=== PATIENT | female | born 1945 | race Caucasian/White ===

== ENCOUNTER 2016-04-29 11:37 | Inpatient (IN) | payer OTHER ==
[~2016-04-29] VITALS: Ht 152.4 cm; Wt 59.0 kg
[~2016-04-29 11:37] MED LIST: ACET-1256 PO; ALPR0.25 PO; ASPEC81 PO; BUPR150T7 PO; BUSP15TA70 PO; DIVA500T59 PO; FRS/40 PO; LEVO175T PO; OMEP40CA PO; PRAM0.129 PO; PROB1TAB16 PO; QUET-205 PO; RIZA10TA18 PO; SODI650T9 PO; STLS PO; TRAM-10 PO
[2016-04-29 12:40] VITALS: BP 117/65; PULSE 86; TEMP 36.5; Ht 152.4 cm; Wt 59.0 kg
[2016-04-29 13:33] LABS: HEMATOCRIT 32.8 % (37-47); MEAN CELL VOLUME 97.9 fL (80-100); MEAN CORPUSCULAR HEMOGLOBIN 32.5 pg (25-34); MEAN CORPUSCULAR HGB CONC 33.2 g/dl (32-36); MEAN PLATELET VOLUME 9.3 fL (7.4-10.4); PLATELET COUNT 308 K/uL (130-400); RED BLOOD COUNT 3.35 M/uL (4.2-5.4); WHITE BLOOD COUNT 6.17 K/uL (4.8-10.8)
[2016-04-29] MEDS ORDERED: ACETAMINOPHEN 500 MG TAB PO PRN (14:00)
[2016-04-29] MEDS ORDERED: ONDANSETRON INJ 2 MG/ML 2 ML VIAL IV PRN (14:00)
[2016-04-29] MEDS: SODIUM CHLORIDE 0.9% 1000ML 1,000 ML IV SCH ×2 (14:20→23:47)
[2016-04-29] MEDS: ALPRAZOLAM 0.25 MG TAB PO SCH ×3 (14:20→21:23)
[2016-04-29 14:36] LABS: BUN/CREATININE RATIO 15.9 (10-20); CREATININE 1.4 mg/dl (0.60-1.20); POTASSIUM 4.3 mmol/L (3.5-5.1)
--- NOTE | 2016-04-29 14:42 | Anesthesiology Progress Note ---
Anesthesia Progress Note Date of Service Apr 29, 2016. Progress Notes Saw patient at bedside. Discussed patient history, performed assessment. Pt with a hx of COPD, hx of mild-moderate , LIZETTE 1.1, echo from 07/17/15 EF 70%. Exercise tolerance good per patient., Pt. states she walks up 15 steps upstairs with no symptoms. Discussed spinal/general options with patient. Consent obtained. Advised to be NPO after midnight.
--- NOTE | 2016-04-29 15:08 | DIAGNOSTIC IMAGING REPORT ---
CHEST 2 VIEWS ROUTINE CLINICAL HISTORY: Preoperative chest COMPARISON STUDY: 07/19/2015 FINDINGS: The heart is normal in size. The patient is mildly hyperinflated. There is mild interstitial thickening unchanged from the prior study. A vague opacity within the right midlung zone laterally is felt to relate to underlying rib deformity. There is no lobar consolidation. There is no failure. There are no pleural effusions.[ IMPRESSION: No active disease in the chest. Electronically signed by: Nitin Samayoa M.D. 04/29/2016 3:06 PM
[2016-04-29 15:40] VITALS: BP 93/56; PULSE 80; TEMP 36.4; O2SAT 99
--- NOTE | 2016-04-29 16:17 | HISTORY & PHYSICAL EXAMINATION ---
DATE OF ADMISSION: 04/29/2016 CHIEF COMPLAINT: Left hip pain. HISTORY OF PRESENT ILLNESS: The patient is a 70-year-old female who is known to us with multiple orthopedic problems who suffered a fall at home around [place]. She has been hobbling, limping on for the past week and a half. Her daughter brings her to the office today for x-ray and evaluation. X-rays revealed a mildly displaced left hip subcapital femoral neck fracture. She is now to be admitted to the hospital for surgical intervention tomorrow. PAST MEDICAL HISTORY: Congestive heart failure, depression, hypothyroidism, acid reflux. PAST SURGICAL HISTORY: Hysterectomy, cholecystectomy, right and left knees laparoscopies. MEDICATIONS: Synthroid 125 mcg daily, Mirapex 0.25 mg 3 times daily, Depakote 500 mg 2 times daily, Wellbutrin-SR 150 mg 2 times daily, Seroquel 100 mg 2 times daily, aspirin 81 mg daily, Prilosec 40 mg daily, Maxalt 10 mg p.r.n., probiotic daily, buspirone 15 mg 2 times daily, vitamin D3 2000 units daily, Xanax 0.25 mg 3 times daily, calcitriol 0.25 mcg daily, colchicine 0.6 mg daily. ALLERGIES: ZOSYN WHICH CAUSES A RASH, MORPHINE WHICH CAUSES HER BLOOD PRESSURE TO GO DOWN AND PROTONIX. SOCIAL HISTORY: She lives with her daughter. REVIEW OF SYSTEMS: Noncontributory. PHYSICAL EXAMINATION: GENERAL: Well-nourished, well-developed elderly female in moderate amount of pain due to her left hip injury. HEENT: Normocephalic, atraumatic, extraocular movements intact, oropharynx pink and moist. NECK: Supple without adenopathy. LUNGS: Clear to auscultation bilaterally. HEART: Regular rate and rhythm. ABDOMEN: Soft, nontender, nondistended. EXTREMITIES: The upper extremity within normal limits. The left hip is irritable to motion. X-RAYS: X-rays were reviewed. She has a mildly displaced subcapital femoral neck fracture of the left hip. ASSESSMENT: Left hip fracture. PLAN: Risks versus benefits were discussed. Consent was obtained. The patient will be admitted to the hospital. Her primary care physician is Dr. Jennings. We will proceed with left total hip arthroplasty upon preoperative workup and medical clearance. SHANNON
[2016-04-29] MEDS: OXYCODONE HCL IR 5 MG TAB (IMMEDIATE RELEASE) PO PRN ×2 (16:50→21:25)
[2016-04-29] MEDS: QUETIAPINE FUMARATE 100 MG TAB PO SCH (21:22)
[2016-04-29] MEDS: BusPIRone 15 MG TAB PO SCH (21:23)
[2016-04-29] MEDS: BuPROPion SR 150 MG TABCR PO SCH (21:24)
[2016-04-29] MEDS: PRAMIPEXOLE DIHYDROCHLORIDE 0.25MG TAB PO SCH (21:24)
[2016-04-29] MEDS: DIVALPROEX SODIUM 500 MG DELAY RELEASE TAB PO SCH (21:24)
[2016-04-29 22:57] VITALS: BP 96/63; PULSE 80; TEMP 36.6; O2SAT 80; O2SAT 96
[2016-04-30] MEDS: LEVOTHYROXINE 125 MCG TAB PO SCH (05:40)
[2016-04-30] MEDS ORDERED: CEFAZOLIN 1000MG/55 ML D5W 55 ML IV SCH (06:00)
[2016-04-30] MEDS ORDERED: BUPIVACAINE 0.5 % 5 MG/1 ML PF 10ML VIAL ONE (06:34)
[2016-04-30 08:01] VITALS: BP 110/71; PULSE 77; TEMP 36.4; O2SAT 98
--- NOTE | 2016-04-30 08:27 | Clinical Documentation Query ---
COLLEEN Guillen : CLINICAL DOCUMENTATION QUERIES QUERY 1 OF 2 Patient is a 70 year old woman admitted s/p fall with left mildly displaced subcapital femoral neck fracture. She has been seen in consultation by orthopedic surgery and operative repair is pending. If you feel the degree of injury is out of proportion to the mechanism of injury, please clarify as suggested below as this directly impacts DRG assignment. Thank you. In your clinical opinion is this patient being managed for: ( ) Pathological mildly displaced subcapital left femoral neck fracture ( ) Other explanation of clinical findings (Please Explain) ( ) Unable to determine (Please Define) ( ) Need to Discuss ( ) Not Agree The medical record reflects the following clinical findings, treatment, and risk factors. Clinical Indicators: Fracture sustained with ground level fall. Treatment: Orthopedic consultation, Vitamin D3, Calcitriol Risk Factors: Age, gender, post-menopausal, small stature Pathological Fracture * Some fractures may occur d/t minor trauma or without any trauma at all_ * This type of fracture is generally predisposed by underlying conditions like metastatic disease, osteoporosis, osteopenia, etc. * Only the physician can determine whether the fracture is out of proportion to the degree of trauma. * You know these fractures by several names: pathological, osteoporotic, insufficiency, frailty. QUERY 2 OF 2 Admission BUN, creatinine, and estimated GFR were22 mg/dl, 1.40 mg/dl, and 38 ml/min. Please clarify as clinically appropriate. In your clinical opinion is this patient being managed for: ( ) Chronic kidney disease, stage 3 ( ) Other explanation of clinical findings (Please Explain) ( ) Unable to determine (Please Define) ( ) Need to Discuss ( ) Not Agree The medical record reflects the following clinical findings, treatment, and risk factors. Clinical Indicators: As above Treatment: IVF, serial chemistries Risk Factors: Age, CHF history, medications Chronic Kidney Disease (CKD), stages 1-5. Documenting the stage of CKD will improve data integrity and will help clarify vague terms such as "renal insufficiency" or "chronic renal failure." The stages of CKD according to the [employer] are as follows: Stage I: GFR >90 Stage II: GFR 60-89 Stage III: GFR 30-59 Stage IV: GFR 15-29 Stage V: GFR <15 Please clarify and document your clinical opinion in the progress notes and discharge summary. Terms such as "probable", "suspected", "likely", "questionable", "possible", or "still to be ruled out" are acceptable. IF IN AGREEMENT, YOU MUST DOCUMENT ABOVE DIAGNOSTIC STATEMENT IN DAILY PROGRESS NOTES AND DISCHARGE SUMMARY. This document is not part of the patient's record. Thank You, Sp Chirinos, LUIS ENRIQUE [phone]
[2016-04-30] MEDS: QUETIAPINE FUMARATE 100 MG TAB PO SCH ×2 (09:00→20:47)
[2016-04-30] MEDS: PANTOprazole SOD 40 MG TAB PO SCH (09:00)
[2016-04-30] MEDS: PRAMIPEXOLE DIHYDROCHLORIDE 0.25MG TAB PO SCH ×3 (09:00→20:46)
[2016-04-30] MEDS: ALPRAZOLAM 0.25 MG TAB PO SCH ×3 (09:00→20:46)
[2016-04-30] MEDS: BusPIRone 15 MG TAB PO SCH ×2 (09:00→20:46)
[2016-04-30] MEDS: DIVALPROEX SODIUM 500 MG DELAY RELEASE TAB PO SCH ×2 (09:00→20:46)
[2016-04-30] MEDS: BuPROPion SR 150 MG TABCR PO SCH ×2 (09:00→20:47)
--- NOTE | 2016-04-30 12:46 | History & Physical Bridge Note ---
H&P Re-Evaluation Bridge Note: I have examined the patient, reviewed the History & Physical and in the interval since the performance of the History & Physical I have noted the following changes of clinical significance: No changes noted
[2016-04-30] MEDS: SODIUM CHLORIDE 0.9% 1000ML 1,000 ML IV SCH ×2 (13:11→20:49)
[2016-04-30] MEDS ORDERED: LACTATED RINGER'S 1000ML 1,000 ML IV PRN (13:47)
[2016-04-30] MEDS ORDERED: FENTANYL CITRATE INJ 50 MCG/1 ML 2 ML VIAL IV PRN ×2 (14:00→16:00)
[2016-04-30] MEDS ORDERED: ONDANSETRON INJ 2 MG/ML 2 ML VIAL IV PRN ×2 (14:00→16:00)
[2016-04-30] MEDS ORDERED: FENTANYL CITRATE INJ 50 MCG/1 ML 2 ML VIAL ONE (14:09)
[2016-04-30] MEDS ORDERED: PROPOFOL IV EMULSION 10 MG/ML 20 ML VIAL IV ONE (14:09)
[2016-04-30] MEDS ORDERED: LIDOCAINE HCL 2% 2 ML VIAL (20MG/ML) ONE (14:09)
[2016-04-30] MEDS ORDERED: MIDAZOLAM HCL 1 MG/ML 2ML VIAL ONE (14:09)
[2016-04-30] MEDS ORDERED: ROCURONIUM BROMIDE 10 MG/ML 5 ML VIAL ONE (14:47)
[2016-04-30] MEDS ORDERED: DEXAMETHASONE SOD INJ 4 MG/ML VIAL ONE (14:47)
[2016-04-30] MEDS ORDERED: ONDANSETRON INJ 2 MG/ML 2 ML VIAL ONE (14:47)
[2016-04-30] MEDS ORDERED: EpHEDrine SULFATE INJ 50 MG/ML AMP IV PRN (16:00)
[2016-04-30] MEDS ORDERED: DEXAMETHASONE SOD INJ 4 MG/ML VIAL IV PRN (16:00)
[2016-04-30] MEDS ORDERED: MEPERIDINE HCL 25 MG/ML CARP IV PRN (16:00)
[2016-04-30] MEDS ORDERED: ATROPINE SULFATE 0.1 MG/ML 5ML SYR IV PRN (16:00)
[2016-04-30] MEDS ORDERED: NEOSTIGMINE METHYLSULFATE 5 MG/5 ML SYR ONE (16:43)
[2016-04-30] MEDS ORDERED: GLYCOPYRROLATE INJ 0.2 MG/ML VIAL ONE (16:43)
[2016-04-30] MEDS ORDERED: ALUMINUM/MAGNESIUM/SIMETH (MAALOX MAX) 30 ML UDC PO PRN (16:45)
[2016-04-30] MEDS ORDERED: DiphenhydrAMINE HCL 50 MG/ML VIAL IV PRN (16:45)
[2016-04-30] MEDS ORDERED: BISACODYL 10 MG SUPP PR PRN (16:45)
[2016-04-30] MEDS ORDERED: ZOLPIDEM TARTRATE 5 MG TAB PO PRN (16:45)
[2016-04-30] MEDS ORDERED: MAGNESIUM HYDROXIDE SUSP 30 ML UDC PO PRN (16:45)
--- NOTE | 2016-04-30 16:52 | [facility] Post Operative Brief Note ---
Immediate Operative Summary Operative Date Apr 30, 2016. Pre-Operative Diagnosis Garden ! left femoral neck fx Post-Operative Diagnosis same Procedure(s) Performed In situ screw fixation Surgeon Jordan Bridge Saw Operator Surgeon(s) Kobe Estimated Blood Loss 20cc Findings fx Specimens none Complication(s) None Disposition Recovery Room / PACU
[2016-04-30] MEDS ORDERED: EpHEDrine SULFATE 50MG/5ML SYR ONE (17:02)
--- NOTE | 2016-04-30 17:35 | Anesthesiology Progress Note ---
Anesthesia Post Op Note Date & Time Apr 30, 2016 at 17:34 Vital Signs Pain Intensity: 1 Vital Signs Past 12 Hours Date Time Temp Pulse Resp B/P Pulse Ox O2 Delivery O2 Flow Rate FiO2 04/30/16 17:33 36.2 04/30/16 17:30 52 20 04/30/16 17:30 53 20 98 04/30/16 17:29 111/60 04/30/16 17:26 126/58 04/30/16 17:25 53 20 04/30/16 17:25 57 20 99 04/30/16 17:24 72/63 04/30/16 17:20 49 12 04/30/16 17:20 49 12 100 04/30/16 17:19 117/65 04/30/16 17:17 132/49 04/30/16 17:15 49 21 04/30/16 17:15 48 21 98 04/30/16 17:10 54 17 04/30/16 17:10 53 17 100 04/30/16 17:09 129/64 04/30/16 17:05 58 19 98 04/30/16 17:05 61 19 04/30/16 17:04 119/62 04/30/16 17:01 135/53 04/30/16 17:00 65 26 81 04/30/16 17:00 68 26 04/30/16 16:55 36.7 63 16 131/53 100 Nasal Cannula 3 04/30/16 08:17 Room Air 04/30/16 08:01 36.4 77 16 110/71 98 Room Air Notes Mental Status: alert / awake / arousable Nausea / Vomiting: adequately controlled Pain: adequately controlled Airway Patency, RR, SpO2: stable & adequate BP & HR: stable & adequate Hydration State: stable & adequate Anesthetic Complications: no major complications apparent
--- NOTE | 2016-04-30 17:44 | DIAGNOSTIC IMAGING REPORT ---
INTRAOPERATIVE LEFT HIP 2 VIEWS CLINICAL HISTORY: LEFT HIP PINNING/CANNULATED SCREWS COMPARISON STUDY: None FLUOROSCOPY TIME: 20 seconds. FINDINGS: 2 fluoroscopic spot images were acquired. There is internal fixation of a femoral neck fracture with 3 cannulated screws. IMPRESSION: Internal fixation of the left femoral neck fracture with 3 cannulated screws Electronically signed by: Nitin Samayoa M.D. 04/30/2016 5:42 PM Dictated Date/Time: 04/30/2016 5:41 PM
[2016-04-30 17:45] VITALS: BP 111/65; PULSE 77; TEMP 36.6; O2SAT 97
[2016-04-30 18:15] VITALS: BP 100/55; PULSE 52; TEMP 36.2; O2SAT 100
[2016-04-30 18:55] VITALS: BP 104/60; PULSE 59; TEMP 36.4; O2SAT 100
[2016-04-30] MEDS: OXYCODONE HCL IR 5 MG TAB (IMMEDIATE RELEASE) PO PRN (19:12)
[2016-04-30 20:43] VITALS: BP 111/65; PULSE 62; TEMP 36.5; O2SAT 97
[2016-04-30] MEDS: DOCUSATE SODIUM 100 MG CAP PO SCH (21:00)
[2016-04-30] MEDS: CEFAZOLIN IV 1,000 MG in DEXTROSE 5% 50ML 50 ML IV SCH (22:13)
[2016-04-30 22:53] VITALS: BP 88/50; PULSE 55; TEMP 36.4; O2SAT 97
[2016-05-01 03:23] VITALS: BP 99/61; PULSE 64; TEMP 36.3; O2SAT 98
[2016-05-01] MEDS: SODIUM CHLORIDE 0.9% 1000ML 1,000 ML IV SCH (03:48)
[2016-05-01] MEDS: LEVOTHYROXINE 125 MCG TAB PO SCH (05:48)
[2016-05-01] MEDS: CEFAZOLIN IV 1,000 MG in DEXTROSE 5% 50ML 50 ML IV SCH (05:49)
--- NOTE | 2016-05-01 06:58 | OPERATIVE REPORT ---
DATE OF OPERATION: 04/30/2016 PREOPERATIVE DIAGNOSIS: Impacted femoral neck fracture, left hip. POSTOPERATIVE DIAGNOSIS: Impacted femoral neck fracture, left hip. PROCEDURE: In situ cannulated screw fixation, left hip. SURGEON: Gal Ortega MD COMPUTER TECHNICAL SUPPORT SPECIALIST: TOO Ann ANESTHESIA: General. COMPLICATIONS: None. DESCRIPTION OF PROCEDURE: Following induction of adequate general anesthesia, the patient's left hip was prepped and draped in the usual sterile manner. A drill-tipped guidewire was used to plan the incision. A 1 inch incision was made over the lateral aspect of the thigh and a cannulated screw was placed traversing the fracture. Using 2 additional drill tipped guidewires, the triangulation of wires traversed the fracture site were all completely intraosseous. The guidewire was then measured and 3 cannulated screws were passed. The wound was irrigated and closed using 2-0 Dexon bella. Sterile dressing of Adaptic, 4x4s, ABDs and foam tape was applied. The patient tolerated the procedure well. I attest to the content of the Intraoperative Record and any orders documented therein. Any exceptio ns are noted below.
[2016-05-01 07:21] VITALS: BP 98/62; PULSE 62; TEMP 36.6; O2SAT 100
[2016-05-01 07:31] LABS: HEMATOCRIT 33.1 % (37-47); MEAN CELL VOLUME 98.5 fL (80-100); MEAN CORPUSCULAR HEMOGLOBIN 31.8 pg (25-34); MEAN CORPUSCULAR HGB CONC 32.3 g/dl (32-36); MEAN PLATELET VOLUME 9.5 fL (7.4-10.4); PLATELET COUNT 307 K/uL (130-400); RED BLOOD COUNT 3.36 M/uL (4.2-5.4); WHITE BLOOD COUNT 6.26 K/uL (4.8-10.8)
[2016-05-01] MEDS: OXYCODONE HCL IR 5 MG TAB (IMMEDIATE RELEASE) PO PRN ×3 (07:35→23:14)
[2016-05-01 07:57] LABS: BUN/CREATININE RATIO 13.5 (10-20); CALCIUM 8.2 mg/dl (8.5-10.1); CREATININE 1.5 mg/dl (0.60-1.20); POTASSIUM 4.5 mmol/L (3.5-5.1)
--- NOTE | 2016-05-01 08:10 | Orthopedic Progress Note ---
Orthopedic Progress Note Date of Service May 01, 2016. Subjective Post OP Day: 1 Reports: feeling well Objective calves soft nontender, N/V intact, dressing C/D/I, toes mobile Date Time Temp Pulse Resp B/P Pulse Ox O2 Delivery O2 Flow Rate FiO2 05/01/16 07:21 36.6 62 16 98/62 100 Room Air 05/01/16 03:23 36.3 64 16 99/61 98 Nasal Cannula 2.0 04/30/16 23:53 Nasal Cannula 2.0 04/30/16 22:53 36.4 55 16 88/50 97 Nasal Cannula 2.0 04/30/16 20:43 36.5 62 16 111/65 97 Nasal Cannula 2.0 04/30/16 18:55 36.4 59 16 104/60 100 Nasal Cannula 3.0 04/30/16 18:15 36.2 52 16 100/55 100 Nasal Cannula 3.0 04/30/16 17:45 36.6 77 18 111/65 97 Nasal Cannula 3.0 04/30/16 17:45 97 Nasal Cannula 3.0 04/30/16 17:45 97 Nasal Cannula 3.0 04/30/16 17:33 36.2 04/30/16 17:30 52 20 04/30/16 17:30 53 20 98 04/30/16 17:29 111/60 04/30/16 17:26 126/58 04/30/16 17:25 53 20 04/30/16 17:25 57 20 99 04/30/16 17:24 72/63 04/30/16 17:20 49 12 04/30/16 17:20 49 12 100 04/30/16 17:19 117/65 04/30/16 17:17 132/49 04/30/16 17:15 49 21 04/30/16 17:15 48 21 98 04/30/16 17:10 54 17 04/30/16 17:10 53 17 100 04/30/16 17:09 129/64 04/30/16 17:05 58 19 98 04/30/16 17:05 61 19 04/30/16 17:04 119/62 04/30/16 17:01 135/53 04/30/16 17:00 65 26 81 04/30/16 17:00 68 26 04/30/16 16:55 36.7 63 16 131/53 100 Nasal Cannula 3 04/30/16 08:17 Room Air Laboratory Results 24 Hours: Test 05/01/16 07:01 Hematocrit 33.1 % Hemoglobin 10.7 g/dL Assessment & Plan Assessment: 70 yo female stable POD #1 s/p left hip pinning Plan: 1. Med management 2. DVT prophylaxis - ASA, TEDs, SCDs 3. PT/OT- TTWB left LE 4. D/C planning- pt interested in [facility] due to stairs at home and being alone during the day
--- NOTE | 2016-05-01 08:32 | Anesthesiology Progress Note ---
Anesthesia Post Op Note Date & Time May 01, 2016 at 08:31 Vital Signs Pain Intensity: 9.0 Vital Signs Past 12 Hours Date Time Temp Pulse Resp B/P Pulse Ox O2 Delivery O2 Flow Rate FiO2 05/01/16 07:21 36.6 62 16 98/62 100 Room Air 05/01/16 03:23 36.3 64 16 99/61 98 Nasal Cannula 2.0 04/30/16 23:53 Nasal Cannula 2.0 04/30/16 22:53 36.4 55 16 88/50 97 Nasal Cannula 2.0 04/30/16 20:43 36.5 62 16 111/65 97 Nasal Cannula 2.0 Notes Mental Status: alert / awake / arousable, participated in evaluation Pt Amnestic to Procedure: Yes Nausea / Vomiting: adequately controlled Pain: adequately controlled Airway Patency, RR, SpO2: stable & adequate BP & HR: stable & adequate Hydration State: stable & adequate Anesthetic Complications: no major complications apparent
[2016-05-01] MEDS: BuPROPion SR 150 MG TABCR PO SCH ×2 (08:45→20:46)
[2016-05-01] MEDS: DOCUSATE SODIUM 100 MG CAP PO SCH ×2 (08:45→20:45)
[2016-05-01] MEDS: DIVALPROEX SODIUM 500 MG DELAY RELEASE TAB PO SCH ×2 (08:46→20:47)
[2016-05-01] MEDS: PANTOprazole SOD 40 MG TAB PO SCH (08:46)
[2016-05-01] MEDS: PRAMIPEXOLE DIHYDROCHLORIDE 0.25MG TAB PO SCH ×3 (08:47→20:46)
[2016-05-01] MEDS: MULTIVITAMIN TAB PO SCH (08:47)
[2016-05-01] MEDS: QUETIAPINE FUMARATE 100 MG TAB PO SCH ×2 (08:47→20:47)
[2016-05-01] MEDS: BusPIRone 15 MG TAB PO SCH ×2 (08:48→20:46)
[2016-05-01] MEDS: ALPRAZOLAM 0.25 MG TAB PO SCH ×3 (08:51→20:45)
[2016-05-01] MEDS: ASPIRIN 81 MG ECTAB PO SCH ×2 (08:51→20:46)
[2016-05-01 10:33] VITALS: BP 108/63; PULSE 100; O2SAT 95
[2016-05-01 12:33] VITALS: BP 82/53; PULSE 94; TEMP 36.6; O2SAT 95
[2016-05-01 15:33] VITALS: BP 91/61; PULSE 94; TEMP 36.9; O2SAT 95
[2016-05-01 19:54] VITALS: BP 104/55; PULSE 94; TEMP 37.6; O2SAT 95
[2016-05-02 00:03] VITALS: BP 91/56; PULSE 104; TEMP 36.8; O2SAT 95
[2016-05-02] MEDS: LEVOTHYROXINE 125 MCG TAB PO SCH (06:07)
[2016-05-02 07:00] VITALS: BP 94/61; PULSE 90; TEMP 36.9; O2SAT 95
[2016-05-02 07:03] LABS: HEMATOCRIT 31.8 % (37-47); MEAN CELL VOLUME 97.5 fL (80-100); MEAN CORPUSCULAR HGB CONC 31.8 g/dl (32-36); MEAN PLATELET VOLUME 9.7 fL (7.4-10.4); PLATELET COUNT 307 K/uL (130-400); RED BLOOD COUNT 3.26 M/uL (4.2-5.4); WHITE BLOOD COUNT 5.85 K/uL (4.8-10.8)
[2016-05-02 07:31] LABS: BUN/CREATININE RATIO 14.6 (10-20); CALCIUM 7.7 mg/dl (8.5-10.1); CREATININE 1.4 mg/dl (0.60-1.20); POTASSIUM 4.2 mmol/L (3.5-5.1)
[2016-05-02] MEDS: ALPRAZOLAM 0.25 MG TAB PO SCH ×3 (09:08→21:02)
[2016-05-02] MEDS: OXYCODONE HCL IR 5 MG TAB (IMMEDIATE RELEASE) PO PRN (09:09)
[2016-05-02] MEDS: PANTOprazole SOD 40 MG TAB PO SCH (09:10)
[2016-05-02] MEDS: DOCUSATE SODIUM 100 MG CAP PO SCH ×2 (09:10→21:03)
[2016-05-02] MEDS: QUETIAPINE FUMARATE 100 MG TAB PO SCH ×2 (09:11→21:04)
[2016-05-02] MEDS: MULTIVITAMIN TAB PO SCH (09:11)
[2016-05-02] MEDS: BusPIRone 15 MG TAB PO SCH ×2 (09:12→21:03)
[2016-05-02] MEDS: BuPROPion SR 150 MG TABCR PO SCH ×2 (09:12→21:02)
[2016-05-02] MEDS: ASPIRIN 81 MG ECTAB PO SCH ×2 (09:12→21:02)
[2016-05-02] MEDS: DIVALPROEX SODIUM 500 MG DELAY RELEASE TAB PO SCH ×2 (09:12→21:03)
[2016-05-02] MEDS: PRAMIPEXOLE DIHYDROCHLORIDE 0.25MG TAB PO SCH ×3 (09:13→21:03)
--- NOTE | 2016-05-02 09:14 | Orthopedic Progress Note ---
Orthopedic Progress Note Date of Service May 02, 2016. Subjective Post OP Day: 2 Reports: feeling well, pain controlled w PO medications, Denies: SOB, calf pain , chest pain, complaints, light headedness, nausea / vomiting Objective calves soft nontender, N/V intact, incision C/D/I, A&O x3, toes mobile Date Time Temp Pulse Resp B/P Pulse Ox O2 Delivery O2 Flow Rate FiO2 05/02/16 07:00 36.9 90 16 94/61 95 Room Air 05/02/16 00:03 36.8 104 20 91/56 95 Room Air 05/01/16 20:30 Room Air 05/01/16 19:54 37.6 94 18 104/55 95 Room Air 05/01/16 15:33 36.9 94 18 91/61 95 Room Air 05/01/16 12:33 36.6 94 16 82/53 95 Room Air 05/01/16 10:33 100 95 Laboratory Results 24 Hours: Test 05/02/16 06:00 Hematocrit 31.8 % Hemoglobin 10.1 g/dL Assessment & Plan Assessment: 70 yo female stable POD #1 s/p left hip pinning Plan: 1. Med management 2. DVT prophylaxis - ASA, TEDs, SCDs 3. PT/OT- TTWB left LE 4. D/C planning- pt interested in [facility] due to stairs at home and being alone during the day, awaiting autho. will likely not be until wednesday or wednesday Discharge Planning Discharge Planning: care home facility
[2016-05-02 15:16] VITALS: BP 99/50; PULSE 103; TEMP 36.7; O2SAT 97
[2016-05-02 23:23] VITALS: BP 92/58; PULSE 103; TEMP 37.2; O2SAT 97
[2016-05-03 03:13] VITALS: O2SAT 97
[2016-05-03 06:26] VITALS: BP 86/54; PULSE 98; TEMP 36.6; O2SAT 91
[2016-05-03] MEDS: LEVOTHYROXINE 125 MCG TAB PO SCH (06:27)
--- NOTE | 2016-05-03 06:59 | Orthopedic Progress Note ---
Orthopedic Progress Note Date of Service May 03, 2016. Subjective Post OP Day: 3 Reports: feeling well, pain controlled w PO medications, Denies: SOB, calf pain , chest pain, complaints, light headedness, nausea / vomiting Objective calves soft nontender, N/V intact, capillary refill less than 2 sec., incision C /D/I, A&O x3, toes mobile Date Time Temp Pulse Resp B/P Pulse Ox O2 Delivery O2 Flow Rate FiO2 05/03/16 06:26 36.6 98 16 86/54 91 Room Air 05/03/16 03:13 97 Room Air 05/02/16 23:23 37.2 103 18 92/58 97 Room Air 05/02/16 15:16 36.7 103 17 99/50 97 Room Air 05/02/16 08:15 Room Air 05/02/16 07:00 36.9 90 16 94/61 95 Room Air Laboratory Results 24 Hours: Test 05/03/16 05:55 Assessment & Plan Assessment: 70 yo female stable POD #3 s/p left hip pinning Plan: 1. Med management 2. DVT prophylaxis - ASA, TEDs, SCDs 3. PT/OT- TTWB left LE 4. D/C planning- pt interested in [facility] due to stairs at home and being alone during the day, awaiting auth. CM states bed available Wed or Wednesday incision cd&I, no drainage. NVDI. Discharge Planning Discharge Planning: care home facility
[2016-05-03 07:00] LABS: HEMATOCRIT 29.6 % (37-47); MEAN CORPUSCULAR HEMOGLOBIN 31.8 pg (25-34); MEAN CORPUSCULAR HGB CONC 32.8 g/dl (32-36); MEAN PLATELET VOLUME 9.9 fL (7.4-10.4); PLATELET COUNT 284 K/uL (130-400); RED BLOOD COUNT 3.05 M/uL (4.2-5.4); WHITE BLOOD COUNT 6.18 K/uL (4.8-10.8)
[2016-05-03 07:52] VITALS: BP 84/58; PULSE 98; TEMP 37.1; O2SAT 91
[2016-05-03] MEDS: ALPRAZOLAM 0.25 MG TAB PO SCH ×3 (08:30→20:47)
[2016-05-03] MEDS: BusPIRone 15 MG TAB PO SCH ×2 (08:31→20:44)
[2016-05-03] MEDS: DIVALPROEX SODIUM 500 MG DELAY RELEASE TAB PO SCH ×2 (08:31→20:43)
[2016-05-03] MEDS: ASPIRIN 81 MG ECTAB PO SCH ×2 (08:32→20:41)
[2016-05-03] MEDS: PANTOprazole SOD 40 MG TAB PO SCH (08:32)
[2016-05-03] MEDS: MULTIVITAMIN TAB PO SCH (08:32)
[2016-05-03] MEDS: PRAMIPEXOLE DIHYDROCHLORIDE 0.25MG TAB PO SCH ×3 (08:32→20:43)
[2016-05-03] MEDS: BuPROPion SR 150 MG TABCR PO SCH ×2 (08:32→20:45)
[2016-05-03] MEDS: QUETIAPINE FUMARATE 100 MG TAB PO SCH ×2 (08:32→20:44)
[2016-05-03] MEDS: DOCUSATE SODIUM 100 MG CAP PO SCH ×2 (08:32→20:42)
[2016-05-03 09:06] VITALS: BP 83/53; PULSE 91; O2SAT 96
[2016-05-03 15:25] VITALS: BP 94/51; PULSE 92; TEMP 37; O2SAT 94
[2016-05-03 22:50] VITALS: BP 86/47; PULSE 98; TEMP 37.4; O2SAT 92
[2016-05-04] MEDS: LEVOTHYROXINE 125 MCG TAB PO SCH (05:43)
[2016-05-04 06:36] LABS: HEMATOCRIT 30.7 % (37-47); MEAN CELL VOLUME 98.1 fL (80-100); MEAN CORPUSCULAR HEMOGLOBIN 31.3 pg (25-34); MEAN CORPUSCULAR HGB CONC 31.9 g/dl (32-36); MEAN PLATELET VOLUME 9.8 fL (7.4-10.4); PLATELET COUNT 270 K/uL (130-400); RED BLOOD COUNT 3.13 M/uL (4.2-5.4); WHITE BLOOD COUNT 4.46 K/uL (4.8-10.8)
[2016-05-04 07:15] VITALS: BP 93/59; PULSE 61; TEMP 36.8; O2SAT 93
[2016-05-04] MEDS: ALPRAZOLAM 0.25 MG TAB PO SCH ×2 (07:31→13:50)
[2016-05-04] MEDS: ASPIRIN 81 MG ECTAB PO SCH (07:32)
[2016-05-04] MEDS: PANTOprazole SOD 40 MG TAB PO SCH (07:32)
[2016-05-04] MEDS: MULTIVITAMIN TAB PO SCH (07:32)
[2016-05-04] MEDS: DOCUSATE SODIUM 100 MG CAP PO SCH (07:32)
[2016-05-04] MEDS: DIVALPROEX SODIUM 500 MG DELAY RELEASE TAB PO SCH (07:32)
[2016-05-04] MEDS: BuPROPion SR 150 MG TABCR PO SCH (07:33)
[2016-05-04] MEDS: QUETIAPINE FUMARATE 100 MG TAB PO SCH (07:33)
[2016-05-04] MEDS: BusPIRone 15 MG TAB PO SCH (07:34)
[2016-05-04] MEDS: PRAMIPEXOLE DIHYDROCHLORIDE 0.25MG TAB PO SCH ×2 (07:34→13:50)
--- NOTE | 2016-05-04 08:10 | Orthopedic Progress Note ---
Orthopedic Progress Note Date of Service May 04, 2016. Subjective Post OP Day: 4 Reports: feeling well, Denies: complaints Objective calves soft nontender, N/V intact, incision C/D/I, A&O x3, toes mobile Date Time Temp Pulse Resp B/P Pulse Ox O2 Delivery O2 Flow Rate FiO2 05/04/16 07:15 36.8 61 18 93/59 93 Room Air 05/03/16 23:40 Room Air 05/03/16 22:50 37.4 98 16 86/47 92 Room Air 05/03/16 16:30 Room Air 05/03/16 15:25 37.0 92 18 94/51 94 Room Air 05/03/16 09:06 91 96 05/03/16 08:10 Room Air Laboratory Results 24 Hours: Test 05/04/16 05:52 Hematocrit 30.7 % Hemoglobin 9.8 g/dL Assessment & Plan Assessment: 70 yo female stable POD #4 s/p left hip pinning Plan: DVT prophylaxis - ASA, TEDs, SCDs PT/OT- TTWB left LE D/C planning- pt interested in [facility] due to stairs at home and being alone during the day, awaiting auth. CM states bed available today or Wednesday Discharge Planning Discharge Planning: [facility] facility
[2016-05-04] MEDS ORDERED: CLC100 PO (08:14)
[2016-05-04] MEDS ORDERED: RXC5 PO (08:14)
[2016-05-04] MEDS ORDERED: ASPEC81 PO (08:14)
--- NOTE | 2016-05-04 08:19 | Discharge Instructions ---
Discharge Instructions Admission Reason for Admission: Left Hip Fracture Discharge Discharge Diagnosis / Problem: Left Hip Fracture Discharge Goals Goal(s): Decrease discomfort, Improve function Activity Recommendations Activity Level: Assistance Required Therapies: Physical Therapy (gait training), Occupational Therapy (ADL's and transfers) Weightbearing Status: Left toe touch . Additional Information Patient informed of condition: Yes Advance Directives: No DNR: No Level of Care: Skilled Communicable Disease: No Prognosis: Stable Gomez Catheter: No Instructions / Follow-Up Instructions / Follow-Up [facility] DISCHARGE INSTRUCTIONS: HIP FRACTURE SELF CARE INSTRUCTIONS: A. You are to ambulate with a walker or crutches for approximately 6 weeks. B. You are TOE TOUCH WEIGHT BEARING on your operative lower extremity for at least 6 weeks. C. Wear low heeled shoes with non-slip soles D. Be sure that your floors are free of things that could trip you throw rugs, electrical cords, and small objects. Avoid wet and waxed floors, especially with crutches/walker/cane. E. Try to walk several times a day with rest periods between. F. You may shower 48 hours after surgery and get the incision area wet, but DO NOT soak or submerge incision area in water. (No baths, swimming pools, hot tubs ) G. Change dressing daily. If the wound remains dry, you may leave it to the open air. If the wound continues to drain. Please call the office. H. Do NOT apply soap or any ointment/lotions directly over incision. I. You may use ice as needed to operative site. SPECIAL CARE INSTRUCTIONS: VERY IMPORTANT TO READ AND REVIEW A. You may be at risk for phlebitis or blood clots. a. Wear surgical stockings (JUANJOSE hose) for 2 weeks after surgery to improve circulation and reduce swelling. b. Take ASPIRIN 81 mg twice daily for 4 weeks or as directed. This is your blood thinner. c. If you are on Coumadin- you will have daily/weekly blood work to monitor your levels. This will be done by either your family physician/ clinical provider trainer (if you are on Coumadin chronically) versus your orthopedic surgeon. Expect a phone call the day of or the day after your blood work is drawn to adjust your dose accordingly. B. There are a few signs you need to watch for after you are home. Call [facility] at [phone] if you experience any of the following: a. If you have a temperature of 101 degrees or higher. b. Sudden increase in pain in your hip not relieved by rest or pain medication. c. Any fluid or drainage from the incision; redness of the incision. d. Shortness of breath or chest pain. B. Please call [facility] at [phone] if you have any questions or concerns about your operation or recovery. C. Call your physician if: a. Temperature is greater than 101 degrees (F). b. Pain is not relieved by prescribed pain medications. c. Increase drainage or redness from incision. d. Unanswered questions or concerns. D. Pain Medication: a. You will be prescribed pain medication upon discharge that should last till your first post-operative appointment. b. If you experience nausea and/or skin rash, discontinue this medication and contact our office for an alternative medication. c. Caution- narcotic pain medication can cause constipation. FOLLOW UP VISIT: Please call [facility] at [phone] to schedule a follow up appointment 10-14 days from the date of your surgery date. Current Hospital Diet Patient's current hospital diet: Regular Diet Discharge Diet Recommended Diet: Regular Diet Procedures Procedures Performed: Left cannulated hip pinning Pending Studies Studies pending at discharge: no Physician Orders On Transfer Dressing Changes: daily prn Vital Signs: routine Medical Emergencies . Who to Call and When: Medical Emergencies: If at any time you feel your situation is an emergency, please call 911 immediately. . Non-Emergent Contact Non-Emergency issues call your: Surgeon Call Non-Emergent contact if: temperature is above 101.5, your pain is worsening, wound has increased drainage, wound has increased redness . . "Provider Documentation" section prepared by Edward Bullock. Core Measure Problem Core Measures: None
[2016-05-04 14:54] VITALS: BP 94/61; PULSE 87; TEMP 36.7; O2SAT 92
[2016-05-04 15:51] VITALS: BP 94/61; PULSE 87; TEMP 36.7; O2SAT 92
--- NOTE | 2016-05-06 18:00 | DISCHARGE SUMMARY ---
NOTICE TO RECEIVING REPUBLICAN/AGENCY This information is strictly Confidential and protected under [place] law. [place] law prohibits you from making any further disclosure of this information unless further disclosure is expressly permitted by the written consent of the person to whom it pertains or is authorized by law. A general authorization for the release of medical or other information is not sufficient for this purpose. Hospital accepts no responsibility if the information is made available to any other person, INCLUDING THE PATIENT. DISCHARGE DIAGNOSIS: Left garden I femoral neck fracture. SECONDARY DIAGNOSES: Congestive heart failure, depression, hypothyroidism, GERD. CONSULTS: None. COMPLICATIONS: None. PROCEDURES: ORIF left hip with in situ pinning by Dr. Ortega on 04/30/2016. BRIEF HISTORY: As dictated in history and physical. HOSPITAL SUMMARY: The patient was admitted on the above noted date with the above noted hip fracture. She was kept on bed rest and pain control and on 04/30/2016 was taken to the operating room and the above noted procedure was performed which she tolerated well. On her first postoperative day she was feeling well. Calves were soft and nontender, neurovascularly intact. Dressings clean, dry and intact. Toes were mobile. Vital signs were stable. Hemoglobin was 10.7 and she was started on physical therapy protocol toe touch weightbearing left lower extremity and continued on DVT prophylaxis and pain management. Plans were for her to go to [facility] for further rehabilitation at the time of discharge. She continued to remain stable over the next several days and by 05/03/2016 she was feeling well, pain was controlled. Wound was benign. Toes were mobile and calves were soft and nontender. Vital signs remained stable and she was progressing with her physical therapy. By 05/04/2016 she continued to remain stable and it was felt she could be transferred to [facility] for further physical therapy and care. For further review, please see chart. LAB AND X-RAY DATA: As per chart. DISCHARGE INSTRUCTIONS: The patient was discharged to [facility] on 05/04/2016. DIET: Regular. ACTIVITY: Toe-touch weightbearing on the left lower extremity. The patient to have PT and OT protocols as written and follow up with hip fracture instructions as noted as well as special care instructions. The patient to follow up with Dr. Ortega in 10-14 days from the day of surgery. The patient to call for appointment if one has not been made for you. DISCHARGE MEDICATIONS: Colace 100 mg p.o. b.i.d., oxycodone 5-10 mg p.o. q. 4 hours p.r.n. Continue taking acetaminophen 1000 mg p.o. q. 8 hours p.r.n., alprazolam 0.25 mg p.o. at bedtime, aspirin 81 mg p.o. b.i.d. Bupropion 150 mg p.o. b.i.d., Buspirone 50 mg p.o. b.i.d., Depakote 500 mg p.o. b.i.d., levothyroxine 175 mcg p.o. q.a.m., omeprazole 40 mg p.o. q.a.m., Mirapex 0.25 mg p.o. b.i.d., probiotic 1 tab p.o. q.a.m., Seroquel 200 mg p.o. b.i.d., Maxalt 10 mg p.o. daily p.r.n., stool softener 1 tab p.o. at bedtime p.r.n. and tramadol 50 mg p.o. q. 6 hours p.r.n. pain.
== END 2016-05-04 17:20 | DRG 482 ==
LOC: C.MSN 12:10
PROC: 0QS704Z Reposition Left Upper Femur with Internal Fixation Device, Open Approach (ICD-10-PCS; principal; 2016-04-30 08:00)
DX: S72.012A Unspecified intracapsular fracture of left femur, initial encounter for closed fracture (principal); E03.9 Hypothyroidism, unspecified; K21.9 Gastro-esophageal reflux disease without esophagitis; I50.9 Heart failure, unspecified; W19.XXXA Unspecified fall, initial encounter

== ENCOUNTER 2016-05-20 08:42 | Inpatient (IN) | payer OTHER ==
[~2016-05-20] VITALS: Ht 152.4 cm; Wt 60.0 kg
[~2016-05-20 08:42] MED LIST changes: +CLC100 PO; -FRS/40 PO; +RXC5 PO; -SODI650T9 PO
[2016-05-20] MEDS ORDERED: DOCU100T7 PO (09:30)
[2016-05-20] MEDS ORDERED: SRQ/200 PO (09:30)
[2016-05-20] MEDS ORDERED: OMEP40CA41 PO (09:30)
[2016-05-20] MEDS: HYDROmorphone INJ 1 MG/ML SYR IV PRN ×4 (09:39→11:25)
[2016-05-20 10:02] LABS: BASO % 0.5 %; BASO ABS # 0.04 K/uL (0-0.2); COMPLETE YES; EOS % 1.7 %; HEMATOCRIT 33.6 % (37-47); IG% 4.5 %; LYMPH % 24.7 %; LYMPH ABS # 1.85 K/uL (1.2-3.4); MEAN CELL VOLUME 99.1 fL (80-100); MEAN CORPUSCULAR HGB CONC 31.3 g/dl (32-36); MEAN PLATELET VOLUME 9.1 fL (7.4-10.4); MONO % 9.5 %; NEUT % 59.1 %; PLATELET COUNT 500 K/uL (130-400); RED BLOOD COUNT 3.39 M/uL (4.2-5.4); WHITE BLOOD COUNT 7.49 K/uL (4.8-10.8)
[2016-05-20 10:12] LABS: INR 1.1 (0.9-1.1); PARTIAL THROMBOPLASTIN RATIO 1.4
[2016-05-20 10:17] LABS: CREATININE 1.7 mg/dl (0.60-1.20)
[2016-05-20 10:18] LABS: BUN/CREATININE RATIO 12.9 (10-20); CALCIUM 8.6 mg/dl (8.5-10.1); POTASSIUM 4.4 mmol/L (3.5-5.1)
--- NOTE | 2016-05-20 10:39 | DIAGNOSTIC IMAGING REPORT ---
LEFT HIP UNILATERAL 2 VIEWS CLINICAL HISTORY: Left hip pain. COMPARISON STUDY: Left hip 04/30/2016. FINDINGS: Patient is status post recent screw fixation of a left femoral neck fracture. There is been interval development of a left subtrochanteric fracture of the proximal femur. This demonstrates significant displacement . The femoral head remains within the acetabulum. IMPRESSION: 1. An acute displaced subtrochanteric fracture of the proximal left femur. 2. Recent screw fixation of a left femoral neck fracture. Electronically signed by: Carmelo Snyder M.D. 05/20/2016 10:37 AM Dictated Date/Time: 05/20/2016 10:35 AM
[2016-05-20] MEDS ORDERED: ACETAMINOPHEN 325 MG TAB PO PRN (11:15)
[2016-05-20] MEDS ORDERED: ONDANSETRON INJ 2 MG/ML 2 ML VIAL IV PRN (11:15)
[2016-05-20] MEDS ORDERED: DiphenhydrAMINE HCL 50 MG/ML VIAL IV PRN (11:15)
[2016-05-20] MEDS ORDERED: MAGNESIUM HYDROXIDE SUSP 30 ML UDC PO PRN (11:15)
[2016-05-20] MEDS ORDERED: RIZATRIPTAN BENZOATE 10 MG TAB PO PRN (11:15)
[2016-05-20] MEDS ORDERED: ALUMINUM/MAGNESIUM SUSP 30 ML UDC PO PRN (11:15)
[2016-05-20] MEDS ORDERED: HYDROmorphone INJ 0.5 MG/0.5 ML SYR IV PRN (11:45)
[2016-05-20 12:43] VITALS: BP 112/63; PULSE 84; TEMP 36.8; O2SAT 94; Ht 152.4 cm; Wt 60.0 kg
[2016-05-20 12:59] VITALS: BP 110/74; PULSE 88; TEMP 36.6; O2SAT 96
[2016-05-20] MEDS ORDERED: NURSING VERBAL MED ORDER ONE (13:00)
[2016-05-20] MEDS: HYDROmorphone INJ 0.5 MG/0.5 ML SYR IV PRN ×2 (13:09→17:27)
[2016-05-20] MEDS: SODIUM CHLORIDE 0.9% 1000ML 1,000 ML IV SCH ×2 (13:12→23:45)
[2016-05-20] MEDS: LORAZEPAM INJ 0.5 MG in SYRINGE 0.75 ML IV PRN (13:15)
[2016-05-20] MEDS ORDERED: HYDROmorphone INJ 0.5 MG/0.5 ML SYR IV SCH (13:30)
--- NOTE | 2016-05-20 14:09 | DIAGNOSTIC IMAGING REPORT ---
CHEST ONE VIEW PORTABLE CLINICAL HISTORY: Preop chest. History of congestive failure. COMPARISON STUDY: 04/29/2016 FINDINGS: The patient is rotated. There is aortic tortuosity. The heart is within normal limits in size. There is mild interstitial thickening relatively similar to the prior study. There is no lobar consolidation. There are no pleural effusions.[ IMPRESSION: 1. Rotated examination 2. Interstitial thickening, likely chronic. No evidence of lobar consolidation Electronically signed by: Nitin Samayoa M.D. 05/20/2016 2:07 PM Dictated Date/Time: 05/20/2016 2:06 PM
[2016-05-20] MEDS ORDERED: ALBUT/IPRATROP 3MG/0.5MG NEB 3 ML VIAL INH PRN (14:15)
--- NOTE | 2016-05-20 14:29 | Medical Consult ---
Consultation Date of Consultation: May 20, 2016. Attending Physician: Gal Ortega M.D. Reason for Consultation: Pre-operative evaluation, medical management History of Present Illness This is a 70 y/o female with a history of CKD stage III, anemia of chronic disease, CHF, depression/anxiety, and hypothyroidism who presented to the ED on 05/20 with left hip and swelling. The patient had a recent fracture of her left femoral neck but did not have a total hip replacement at that time. The patient 's left hip started "bothering" her 1 day prior to arrival. This morning when the patient got out of bed, she twisted her body and felt her hip pop out. The patient immediately felt a 10/10 sharp pain and complained of swelling. She states that the pain radiated down her lateral leg to her knee. She denies any dizziness or lightheadedness, numbness or tingling. Traction was applied to the leg prior to my examination. She states that her pain has improved to an 8/ 10 sharp pain. The patient denies fevers, chills, sweats, chest pain, palpitations, claudication, cough, wheezing, shortness of breath, nausea, vomiting, abdominal pain, dysuria, hematuria, urinary retention, paralysis, weakness, numbness and tingling. Past Medical/Surgical History Medical Problems: Fracture of proximal left femur--acute CKD stage IV Anemia of chronic disease CHF Depression/anxiety Hypothyroidism GERD Family History Breast cancer Dementia Ovarian cancer Social History Smoking Status: Former Smoker Smokeless Tobacco Use: No Alcohol Use: none Drug Use: none Marital Status: Housing Status: lives with family (lives with daughter) Occupation Status: retired Allergies Coded Allergies: Pantoprazole (Verified Allergy, Intermediate, RASH, 05/20/16) Piperacillin (Verified Allergy, Intermediate, RASH, 05/20/16) Tazobactam (Verified Allergy, Intermediate, RASH, 05/20/16) Morphine (Verified Adverse Reaction, Severe, bp plummeted,CONFUSION, ) Current Inpatient Medications Current Inpatient Medications Medications (Trade) Dose Ordered Sig/Khadra Route Start Time Stop Time Status Last Admin Dose Admin Acetaminophen (Tylenol Tab) 650 mg Q6H PRN PO 05/20/16 11:15 06/19/16 11:14 Diphenhydramine HCl (Benadryl Inj) 25 mg Q8 PRN IV 1/25/17 11:15 06/19/16 11:14 Ondansetron HCl (Zofran Inj) 4 mg Q6H PRN IV 05/20/16 11:15 06/19/16 11:14 Al Hydroxide/Mg Hydroxide (Maalox Susp) 30 ml Q6H PRN PO 05/20/16 11:15 06/19/16 11:14 Magnesium Hydroxide 30 ml 30 ml Q6H PRN PO 05/20/16 11:15 06/19/16 11:14 Sodium Chloride (Nss 1000ml) 1,000 ml @ 75 mls/hr Q11T01L IV 05/20/16 11:09 06/19/16 11:08 05/20/16 13:12 75 MLS/HR Alprazolam (Xanax Tab) 0.25 mg HS PO 05/20/16 21:00 06/19/16 20:59 Bupropion HCl (Wellbutrin-Sr Tab) 150 mg BID PO 05/20/16 21:00 06/19/16 20:59 Buspirone HCl (BusPAR TAB) 15 mg BID PO 05/20/16 21:00 06/19/16 20:59 Divalproex Sodium (Depakote Delay Rel Tab) 500 mg BID PO 05/20/16 21:00 06/19/16 20:59 Levothyroxine Sodium (Synthroid Tab) 175 mcg DAILYBB PO 05/21/16 06:00 06/20/16 05:59 Pramipexole Dihydrochloride (miraPEX TAB) 0.25 mg BID PO 05/20/16 21:00 06/19/16 20:59 Quetiapine Fumarate (seroQUEL TAB) 200 mg BID PO 05/20/16 21:00 06/19/16 20:59 Rizatriptan Benzoate (Maxalt Tab) 10 mg DAILY PRN PO 05/20/16 11:15 06/19/16 11:14 Miscellaneous Information (Order Awaiting Action) 1 ea QS N/A 05/20/16 16:00 06/19/16 15:59 Oxycodone HCl (Roxicodone Immediate Rel Tab) FOR PAIN, 5-10MG 5MG FOR P... Q4HWA PRN PO 05/20/16 11:45 06/03/16 11:44 Hydromorphone HCl 0.5 mg 0.5 mg Q3HWA PRN IV 05/20/16 12:00 06/03/16 11:59 05/20/16 13:09 0.5 MG Lorazepam/Syringe (Ativan Inj/ Syringe) 1 ml @ 0.5 mls/min TID PRN IV 05/20/16 12:00 06/19/16 11:59 05/20/16 13:15 0.5 MLS/MIN Hydromorphone HCl (Dilaudid Inj) 0.5 mg TODAY@1330 IV 05/20/16 13:30 05/20/16 14:30 Review of Systems See HPI for pertinent positives and negatives. All other systems reviewed and negative. Physical Exam Date Time Temp Pulse Resp B/P Pulse Ox O2 Delivery O2 Flow Rate FiO2 05/20/16 12:59 36.6 88 16 110/74 96 Room Air 05/20/16 12:43 36.8 84 16 112/63 94 Room Air 05/20/16 12:31 74 16 112/63 94 Room Air 05/20/16 11:51 76 18 94/64 94 Room Air 05/20/16 11:31 79 05/20/16 11:00 74 16 90/81 93 Room Air 05/20/16 10:34 75 18 134/71 97 Room Air 05/20/16 10:04 82 22 168/75 99 05/20/16 08:59 99 Room Air 05/20/16 08:52 36.8 73 18 154/74 99 Room Air 05/20/16 08:51 74 General Appearance: WD/WN, no apparent distress (pt just given Ativan and Dilaudid for traction, currently no acute distress) Head: normocephalic, atraumatic Eyes: normal inspection, PERRL, EOMI ENT: normal ENT inspection, hearing grossly normal, pharynx normal Neck: supple, no JVD, trachea midline Respiratory/Chest: normal breath sounds, no respiratory distress, + wheezing ( scattered) Cardiovascular: regular rate, rhythm, no gallop, + systolic murmur Abdomen/GI: normal bowel sounds, non tender, soft Extremities/Musculoskelatal: normal capillary refill, no pedal edema, + pertinent finding (left hip deformed, TTP with swelling) Neurologic/Psych: alert, normal mood/affect, oriented x 3 Skin: normal color, warm/dry, no rash Laboratory Results Last 24 Hours Test 05/20/16 09:40 White Blood Count 7.49 K/uL Red Blood Count 3.39 M/uL Hemoglobin 10.5 g/dL Hematocrit 33.6 % Mean Corpuscular Volume 99.1 fL Mean Corpuscular Hemoglobin 31.0 pg Mean Corpuscular Hemoglobin Concent 31.3 g/dl Platelet Count 500 K/uL Mean Platelet Volume 9.1 fL Neutrophils (%) (Auto) 59.1 % Lymphocytes (%) (Auto) 24.7 % Monocytes (%) (Auto) 9.5 % Eosinophils (%) (Auto) 1.7 % Basophils (%) (Auto) 0.5 % Neutrophils # (Auto) 4.42 K/uL Lymphocytes # (Auto) 1.85 K/uL Monocytes # (Auto) 0.71 K/uL Eosinophils # (Auto) 0.13 K/uL Basophils # (Auto) 0.04 K/uL RDW Standard Deviation 52.3 fL RDW Coefficient of Variation 14.8 % Immature Granulocyte % (Auto) 4.5 % Immature Granulocyte # (Auto) 0.34 K/uL Prothrombin Time 12.0 SECONDS Prothromb Time International Ratio 1.1 Activated Partial Thromboplast Time 37.0 SECONDS Partial Thromboplastin Ratio 1.4 Sodium Level 141 mmol/L Potassium Level 4.4 mmol/L Chloride Level 111 mmol/L Carbon Dioxide Level 18 mmol/L Anion Gap 12.0 mmol/L Blood Urea Nitrogen 22 mg/dl Creatinine 1.70 mg/dl Est Creatinine Clear Calc Drug Dose 25.3 ml/min Estimated GFR () 35.0 Estimated GFR (Non- 30.2 BUN/Creatinine Ratio 12.9 Random Glucose 76 mg/dl Calcium Level 8.6 mg/dl Assessment & Plan 70 y/o female with a history of CKD stage III, anemia of chronic disease, CHF, depression/anxiety, and hypothyroidism who presented to the ED on 05/20 with left hip and swelling. X-rays show acute displaced subtrochanteric fracture of proximal left femur and shows recent screw fixation of left femoral neck fracture. Afebrile, VSS. -Pain management, DVT prophylaxis, and PT/OT as per primary team -CXR shows interstitial thickening which is likely chronic, no acute disease -EKG 69 bpm, NSR with no ischemic changes. -Pt is acceptable risk for surgery tomorrow -Slight wheezing on exam, ordered Duonebs QIDR and q2h prn SOB/wheezing CKD stage III--baseline creatinine around 1.4-1.5 -Slightly impaired renal function with creatinine of 1.7, BUN of 22, likely secondary to dehydration -Continue NSS at 75 cc/hr -Monitor with daily PRP Anemia of chronic disease--stable -Baseline Hgb around 9, Hgb upon arrival 10.5 -Continue to monitor Depression/anxiety, mood disorder -Continue buspirone 15 mg PO BID, Seroquel 400 mg PO BID, Wellbutrin 150 mg PO BID, Depakote 500 mg PO BID, and Xanax 0.25 mg PO qhs Hypothyroidism -Continue Synthroid 175 mcg PO qd GERD -Continue omeprazole 40 mg PO qd Thank you for this consultation. We will continue to follow. Reviewed: Pt Seen/Exam by Me History Pt still with pain, but improving s/p meds. Ate lunch without issue. No SOB, chest pain. She has not had her neb tx yet. Agree with HPI/ROS as noted. General Appearance: WD/WN, no apparent distress Respiratory: no respiratory distress, wheezing (diffuse) Cardiovascular: normal peripheral pulses, regular rate, rhythm Gastrointestinal: non tender, soft Extremities: no pedal edema Neurologic/Psychiatric: alert, normal mood/affect Skin Characteristics: normal color, warm/dry Assessment/Plan Agree with plan as outlined above Awaiting hardware for hip repair Stable otherwise Depakote is for mood disorder, no hx of seizure
[2016-05-20] MEDS: OXYCODONE HCL IR 5 MG TAB (IMMEDIATE RELEASE) PO PRN (14:34)
[2016-05-20 15:15] VITALS: BP 92/53; PULSE 72; TEMP 37; O2SAT 95
--- NOTE | 2016-05-20 15:43 | EMERGENCY ROOM VISIT NOTE ---
History Report prepared by Dre: Catrachita Salcido Under the Supervision of: Dr. Allan Stuart M.D. First contact with patient: 09:18 Chief Complaint: HIP PAIN Stated Complaint: LEG PAIN History of Present Illness The patient is a 70 year old female who presents to the Emergency Room with complaints of severe left hip pain starting this morning. The patient recently had a hip fracture and a few screws were put in place. She did not have a hip replacement. As she was getting out of bed this morning, she twisted her body and leaned when she felt her hip pop out. She denies falling or hitting her head. She also reports left hip swelling. The patient received Fentanyl in route to the Emergency Room without relief. Pt denies LOC, headache, fevers, chills, diaphoresis, visual changes, neck pain, chest pain, breathing difficulties, nausea, vomiting, abdominal pain, back pain, melena, hematochezia , urinary symptoms, numbness, weakness, lymphadenopathy, rash, or other complaints. Source of History: patient Onset: this morning Position: other (left hip) Symptom Intensity: severe Quality: other (left hip swelling) Modifying Factors (Relieving): other (Fentanyl without relief) Review of Systems See HPI for pertinent positives and negatives. A total of ten systems were reviewed and were otherwise negative. Past Medical & Surgical Medical Problems: (1) Acute renal insufficiency (2) Anxiety disorder, unspecified (3) CHF (congestive heart failure) (4) Closed subtrochanteric fracture of left femur (5) GERD (gastroesophageal reflux disease) (6) HTN (hypertension) (7) Hypertension (8) Hypothyroidism, unspecified (9) Left knee pain (10) Pneumonia (11) Presence of artificial knee joint, bilateral (12) Right middle lobe pneumonia Family History No significant family history Social History Smoking Status: Former Smoker Alcohol Use: none Housing Status: lives with family Current/Historical Medications Scheduled Alprazolam (Xanax), 0.25 MG PO HS Aspirin (Aspirin EC Low Dose), 81 MG PO BID Bupropion Hcl (Wellbutrin Sr), 150 MG PO BID Buspirone Hcl (Buspar), 15 MG PO BID Divalproex Sodium (Depakote), 1 TAB PO BID Levothyroxine Sodium (Synthroid), 175 MCG PO QAM Omeprazole (Prilosec), 40 MG PO DAILY Pramipexole (Mirapex), 0.25 MG PO BID Probiotic Product (Probiotic), 1 TAB PO QAM Quetiapine Fumarate (Seroquel), 400 MG PO BID Scheduled PRN Acetaminophen (Tylenol), 1,000 MG PO Q8 PRN for Pain Docusate Sodium (Stool Softener), 1 CAP PO HS PRN for Constipation Rizatriptan Benzoate (Maxalt), 10 MG PO DAILY PRN for UD Allergies Coded Allergies: Pantoprazole (Verified Allergy, Intermediate, RASH, 05/20/16) Piperacillin (Verified Allergy, Intermediate, RASH, 05/20/16) Tazobactam (Verified Allergy, Intermediate, RASH, 05/20/16) Morphine (Verified Adverse Reaction, Severe, bp plummeted,CONFUSION, ) Physical Exam Vital Signs Date Time Temp Pulse Resp B/P Pulse Ox O2 Delivery O2 Flow Rate FiO2 05/20/16 11:00 74 16 90/81 93 Room Air 05/20/16 10:34 75 18 134/71 97 Room Air 05/20/16 10:04 82 22 168/75 99 05/20/16 08:59 99 Room Air 05/20/16 08:52 36.8 73 18 154/74 99 Room Air 05/20/16 08:51 74 Physical Exam GENERAL: Awake, alert, very uncomfortable-appearing, in no distress HENT: Normocephalic, atraumatic. Oropharynx unremarkable. EYES: Normal conjunctiva. Sclera non-icteric. NECK: Supple. No nuchal rigidity. FROM. No JVD. RESPIRATORY: Clear to auscultation. CARDIAC: Regular rate, normal rhythm. Extremities warm and well perfused. Pulses equal. ABDOMEN: Soft, non-distended. No tenderness to palpation. No rebound or guarding. No masses. RECTAL: Deferred. MUSCULOSKELETAL: Chest examination reveals no tenderness. No joint edema. LOWER EXTREMITIES: Calves are equal size bilaterally and non-tender. No edema. No discoloration. Left hip is deformed, and tender with limited range of motion. Left leg is shortened and internally rotated. NEURO: Normal sensorium. No sensory or motor deficits noted. SKIN: No rash or jaundice noted. Medical Decision & Procedures ER Provider Diagnostic Interpretation: X-ray: Per my interpretation, radiologist review. LEFT HIP UNILATERAL 2 VIEWS CLINICAL HISTORY: Left hip pain. COMPARISON STUDY: Left hip 04/30/2016. FINDINGS: Patient is status post recent screw fixation of a left femoral neck fracture. There is been interval development of a left subtrochanteric fracture of the proximal femur. This demonstrates significant displacement . The femoral head remains within the acetabulum. IMPRESSION: 1. An acute displaced subtrochanteric fracture of the proximal left femur. 2. Recent screw fixation of a left femoral neck fracture. Electronically signed by: Carmelo Snyder M.D. 05/20/2016 10:37 AM Dictated Date/Time: 05/20/2016 10:35 AM Laboratory Results 05/20/16 09:40 Red Blood Count 3.39, Mean Corpuscular Volume 99.1, Mean Corpuscular Hemoglobin 31.0, Mean Corpuscular Hemoglobin Concent 31.3, Mean Platelet Volume 9.1, Neutrophils (%) (Auto) 59.1, Lymphocytes (%) (Auto) 24.7, Monocytes (%) (Auto) 9.5, Eosinophils (%) (Auto) 1.7, Basophils (%) (Auto) 0.5, Neutrophils # (Auto) 4.42, Lymphocytes # (Auto) 1.85, Monocytes # (Auto) 0.71, Eosinophils # (Auto) 0.13, Basophils # (Auto) 0.04 05/20/16 09:40 Test 05/20/16 09:40 White Blood Count 7.49 K/uL (4.8-10.8) Red Blood Count 3.39 M/uL (4.2-5.4) Hemoglobin 10.5 g/dL (12.0-16.0) Hematocrit 33.6 % (37-47) Mean Corpuscular Volume 99.1 fL (80-100) Mean Corpuscular Hemoglobin 31.0 pg (25-34) Mean Corpuscular Hemoglobin Concent 31.3 g/dl (32-36) Platelet Count 500 K/uL (130-400) Mean Platelet Volume 9.1 fL (7.4-10.4) Neutrophils (%) (Auto) 59.1 % Lymphocytes (%) (Auto) 24.7 % Monocytes (%) (Auto) 9.5 % Eosinophils (%) (Auto) 1.7 % Basophils (%) (Auto) 0.5 % Neutrophils # (Auto) 4.42 K/uL (1.4-6.5) Lymphocytes # (Auto) 1.85 K/uL (1.2-3.4) Monocytes # (Auto) 0.71 K/uL (0.11-0.59) Eosinophils # (Auto) 0.13 K/uL (0-0.5) Basophils # (Auto) 0.04 K/uL (0-0.2) RDW Standard Deviation 52.3 fL (36.4-46.3) RDW Coefficient of Variation 14.8 % (11.5-14.5) Immature Granulocyte % (Auto) 4.5 % Immature Granulocyte # (Auto) 0.34 K/uL (0.00-0.02) Prothrombin Time 12.0 SECONDS (9.0-12.0) Prothromb Time International Ratio 1.1 (0.9-1.1) Activated Partial Thromboplast Time 37.0 SECONDS (21.0-31.0) Partial Thromboplastin Ratio 1.4 Anion Gap 12.0 mmol/L (3-11) Est Creatinine Clear Calc Drug Dose 25.3 ml/min Estimated GFR () 35.0 Estimated GFR (Non- 30.2 BUN/Creatinine Ratio 12.9 (10-20) Calcium Level 8.6 mg/dl (8.5-10.1) Laboratory results reviewed by me Medications Administered Medications (Trade) Dose Ordered Sig/Khadra Route Start Time Stop Time Status Last Admin Dose Admin Hydromorphone HCl 1 mg 1 mg Q15M PRN IV 05/20/16 09:45 05/20/16 12:51 DC 05/20/16 11:25 1 MG Sodium Chloride (Nss 1000ml) 1,000 ml @ 75 mls/hr [id number] IV 05/20/16 11:09 06/19/16 11:08 05/20/16 13:12 75 MLS/HR ECG Indication: other (Pre-Op) Rate (beats per minute): 69 Rhythm: normal sinus Findings: no acute ischemic change, no ectopy, other (Poor R wave progression) ED Course 0918: The patient was evaluated in room C06. A complete history and physical exam was performed. 0945: Dilaudid Inj 1 mg IV 1105: Upon reexamination, the patient was resting comfortably. I discussed the test results and treatment plan with her. I discussed the patient's case with Edward Bullock PA-C with [facility]. The patient will be evaluated for further management. Medical Decision Prior records reviewed and summarized above. Triage Nursing notes reviewed and agree them. Additional history obtained from family. The patient's history was concerning for traumatic injury. Differential diagnosis: Etiologies such as fracture, dislocation, neurovascular compromise, compartment syndrome, soft tissue injury, as well as others were entertained. Physical examination: Consistent with an isolated hip injury. ER treatment provided: IV lock Zofran 4mg IV Dilaudid 1 mg IV NPO Bedrest On reassessment the patient felt better. Diagnostics interpreted by me: ECG: No acute change The labs revealed an unremarkable CBC, coags, and chemistry panel. Imaging studies: Xrays as above. The patient has an isolated hip fracture and will need admission to the hospital. Consultation: A consultation was placed with orthopedics. The case was discussed and diagnostics were reviewed. The patient was evaluated in the ER for further treatment. The chart was completed utilizing [employer] Speech voice recognition software. Grammatical errors, random word insertions, pronoun errors, and incomplete sentences are an occasional consequence of this system due to software limitations, ambient noise, and hardware issues. Any formal questions or concerns about the content, text, or information contained within the body of this dictation should be directly addressed to the physician for clarification. Consults Time Called: [phone] Consulting Physician: Edward Bullock PA-C with [facility] Returned Call: [phone] I discussed the patient's case with Edward Bullock PA-C with [facility]. Impression Primary Impression: Hip fracture, left Scribe Attestation The scribe's documentation has been prepared under my direction and personally reviewed by me in its entirety. I confirm that the note above accurately reflects all work, treatment, procedures, and medical decision making performed by me. Departure Information Dispostion Being Evaluated By Surgeon Brian Salazar M.D. (PCP) Patient Instructions [facility]
[2016-05-20] MEDS: ALBUT/IPRATROP 3MG/0.5MG NEB 3 ML VIAL INH SCH ×2 (16:00→19:59)
--- NOTE | 2016-05-20 19:36 | HISTORY & PHYSICAL EXAMINATION ---
DATE OF ADMISSION: 05/20/2016 REASON FOR ADMISSION: Left hip fracture. HISTORY OF PRESENT ILLNESS: The patient is a 70-year-old white female known to our practice who is status post open reduction and internal fixation of left hip fracture by Dr. Ortega in April of this year. The patient underwent cannulated screwing of the [place] I femoral neck fracture and was doing well. However, the patient and her daughter state that yesterday she was doing her physical therapy and was having more pain in the hip than she was having beforehand. She was having little more increased difficulty in getting up her stairs and was just noticing that something had changed. Today, she had stood up and actually pivoted on that leg and ended up having severe pain in the left hip and groin. She was brought to the Emergency Room and seen by the staff. X-rays were taken and it was found that she had a subtrochanteric femur fracture of the left proximal femur. She is now being admitted for further orthopedic care. PAST MEDICAL HISTORY: History of CKD stage III, anemia of chronic disease, CHF, depression, anxiety, hypothyroidism, GERD. PAST SURGICAL HISTORY: Hysterectomy, cholecystectomy, right and left total knee arthroplasties, laparoscopies in the past, ORIF of her left hip in April 2016, laparoscopy, tonsillectomy, tubal ligation. FAMILY HISTORY: Breast cancer, dementia, ovarian cancer. SOCIAL HISTORY: The patient used to smoke but no longer smokes. She does not use alcohol. She is and lives with her daughter. MEDICATIONS: Tylenol 1000 mg p.o. q. 8 hours p.r.n., Xanax 0.25 mg p.o. at bedtime, aspirin 81 mg p.o. b.i.d. for 30 days after her recent ORIF of her left hip, Wellbutrin SR 150 mg p.o. b.i.d., BuSpar 15 mg p.o. b.i.d., Depakote 1 tab p.o. b.i.d., stool softener 1 cap p.o. at bedtime, levothyroxine 175 mcg p.o. q.a.m., Prilosec 40 mg p.o. daily, Mirapex 0.25 mg p.o. b.i.d., probiotic 1 tab p.o. q.a.m., Seroquel 400 mg p.o. b.i.d., Maxalt 10 mg p.o. daily p.r.n. ALLERGIES: MORPHINE, PANTOPRAZOLE, PIPERACILLIN AND TAZOBACTAM. REVIEW OF SYSTEMS: No recent fevers, chills, night sweats, unexplained weight loss or weight gain. No flu or cold-like symptoms. No increased cough or sputum production. No shortness of breath. No chest pain, chest pressure, irregular heartbeat. No abdominal pain. No nausea, vomiting, diarrhea, hematemesis, melena, hematochezia. No hematuria, pyuria, dysuria. No history of seizures. No history of TIA, CVA. PHYSICAL EXAMINATION: GENERAL: The patient is a well-developed, well-nourished white female who is alert and oriented x3 and in mild amount of distress due to left hip pain. HEENT: Head is normocephalic and atraumatic. There is no scleral icterus or injection. Nasal airway is patent. Oral mucosa is pink and moist. NECK: Supple. HEART: Regular rate and rhythm with a grade 1/6 systolic murmur heard at the right sternal border. LUNGS: Clear to auscultation without rales, rhonchi or wheezes. ABDOMEN: Soft, round and nontender. Bowel sounds are present and active x4. GENITALIA AND RECTAL: Not performed at this time. EXTREMITIES: On examination of the patient's left lower extremity, it is shortened and internally rotated compared to the right. No attempts were made to move the left hip because of fracture or the left knee because of the above noted fracture. She has no pain on palpation of the left knee and she is able to move her left ankle and toes and has good sensation and good capillary refill. Right lower extremity is nontender on palpation and has decent range of motion of her right hip, knee and ankle. Upper extremities are essentially benign at this time and have good range of motion bilaterally and good strength. Distal pulses are equal bilaterally of the upper and lower extremities. NEUROLOGICAL: Sensation is intact. She is oriented x3 and alert. ASSESSMENT: Subtrochanteric proximal femur fracture status post open reduction and internal fixation of left hip in early April 2016. PLAN: The patient is being admitted for plans for a left total hip arthroplasty and GTR plating of trochanteric fracture with possible need for screws and cables. [facility] has been consulted and is following the patient during her stay and planning for preoperative clearance and postoperative medical management.
[2016-05-20 19:59] VITALS: PULSE 91; O2SAT 92
[2016-05-20] MEDS: BusPIRone 15 MG TAB PO SCH (20:47)
[2016-05-20] MEDS: PRAMIPEXOLE DIHYDROCHLORIDE 0.25MG TAB PO SCH (20:47)
[2016-05-20] MEDS: BuPROPion SR 150 MG TABCR PO SCH (20:47)
[2016-05-20] MEDS: DIVALPROEX SODIUM 500 MG DELAY RELEASE TAB PO SCH (20:47)
[2016-05-20] MEDS: ALPRAZOLAM 0.25 MG TAB PO SCH (20:48)
[2016-05-20] MEDS: QUETIAPINE FUMARATE 200 MG TAB PO SCH (20:48)
[2016-05-20] MEDS ORDERED: QUETIAPINE FUMARATE 200 MG TAB PO SCH (21:00)
[2016-05-20 22:50] LABS: URINE APPEARANCE CLEAR (CLEAR); URINE BILIRUBIN NEG (NEG); URINE COLOR YELLOW; URINE EPITHELIAL CELL AUTO 20-30 /lpf (0-5); URINE NITRITE NEG (NEG); URINE SPECIFIC GRAVITY 1.016 (1.000-1.030); UROBILINOGEN NEG (NEG)
[2016-05-20 22:51] LABS: MANUAL MICROSCOPIC REQUIRED? NO; REVIEW REQ? NO
[2016-05-20 22:58] VITALS: BP 91/59; PULSE 74; TEMP 36.9; O2SAT 96
--- NOTE | 2016-05-20 23:35 | Anesthesiology Progress Note ---
Pre-OP Anesthesia Assessment Date of Note May 20, 2016. Review patient information reviewed, chart reviewed, labs reviewed, acceptable for surgery Notes Elderly female scheduled for ORIF left hip fracture. PMH is significant for hypothyroidism, GERD, mild renal insufficiency, anemia, moderate aortic stenosis. She denies side effects after anesthesia in the past. It is noted that pt had left hip fracture operated 3 weeks prior to this admission. At that time general anesthesia was used in part due to a concern over unexplained elevation in PTT. GA vs SAB explained to pt. She expressed understanding and signed informed consent. Plan for anesthesia will be determined by anesthesiologist assigned to the case.
[2016-05-21] VITALS (10 sets, daily range): BP systolic 88–112; BP diastolic 49–77; PULSE 70–78; TEMP 36.3–37.3; O2SAT 94–100
[2016-05-21] MEDS: HYDROmorphone INJ 0.5 MG/0.5 ML SYR IV PRN ×4 (01:56→23:17)
[2016-05-21] MEDS: LEVOTHYROXINE 175 MCG TAB PO SCH (06:00)
[2016-05-21 06:04] LABS: HEMATOCRIT 30.5 % (37-47); MEAN CELL VOLUME 99.7 fL (80-100); MEAN CORPUSCULAR HGB CONC 31.1 g/dl (32-36); MEAN PLATELET VOLUME 9.5 fL (7.4-10.4); PLATELET COUNT 412 K/uL (130-400); RED BLOOD COUNT 3.06 M/uL (4.2-5.4); WHITE BLOOD COUNT 6.84 K/uL (4.8-10.8)
[2016-05-21 06:30] LABS: BUN/CREATININE RATIO 12.6 (10-20); CALCIUM 8.1 mg/dl (8.5-10.1); CREATININE 1.6 mg/dl (0.60-1.20); POTASSIUM 4.7 mmol/L (3.5-5.1)
[2016-05-21] MEDS ORDERED: BUPIVACAINE 0.5 % 5 MG/1 ML PF 10ML VIAL ONE (06:46)
[2016-05-21] MEDS: ALBUT/IPRATROP 3MG/0.5MG NEB 3 ML VIAL INH SCH ×4 (07:18→19:45)
[2016-05-21] MEDS: DIVALPROEX SODIUM 500 MG DELAY RELEASE TAB PO SCH ×2 (07:22→21:41)
[2016-05-21] MEDS: BusPIRone 15 MG TAB PO SCH ×2 (07:22→20:55)
[2016-05-21] MEDS: PRAMIPEXOLE DIHYDROCHLORIDE 0.25MG TAB PO SCH ×2 (07:22→20:52)
[2016-05-21] MEDS: QUETIAPINE FUMARATE 200 MG TAB PO SCH ×2 (07:23→20:56)
[2016-05-21] MEDS: BuPROPion SR 150 MG TABCR PO SCH ×2 (07:23→21:42)
--- NOTE | 2016-05-21 08:41 | DIAGNOSTIC IMAGING REPORT ---
ABDOMEN AND PELVIS CT WITHOUT CONTRAST CT DOSE: 376.54 mGy.cm HISTORY: Lower abdominal pain. left hip subtrochanteric fx. With 3D reconstruction please TECHNIQUE: Multiaxial CT images of the abdomen and pelvis were performed without contrast. COMPARISON STUDY: Abdomen and pelvis CT 02/27/2015. FINDINGS: Mild interstitial thickening and dependent changes at the lung bases. No pneumoperitoneum. No pneumatosis. There is a displaced left subtrochanteric hip fracture. This demonstrates up to 3 cm of anterior displacement. The fracture is immediately inferior to the left femoral neck screws. There is also a nondisplaced left femoral neck fracture which is transfixed with the screws. There is grade I anterolisthesis of L3 on L4 and L4-L5. Cholecystectomy. The unenhanced liver, spleen, kidneys, and adrenal glands are unremarkable. There is complete fatty replacement of the pancreas, unchanged. No retroperitoneal lymphadenopathy. Soft tissue edema surrounding the left proximal femur fracture. There may be an associated intramuscular hematoma within the left vastus lateralis muscle. This is partially imaged on this study. This measures approximately 4 cm. No evidence for a retroperitoneal hematoma. Hysterectomy. The bladder is decompressed by Gomez catheter. Suboptimal evaluation for bowel pathology due to the lack of intravenous and oral contrast. However, there is no definite bowel wall thickening or obstruction. Colonic diverticulosis. Stable small herniated identified within the lower anterior pelvic wall to the right of midline. This contains fluid and soft tissue density. This remains unchanged. IMPRESSION: 1. Redemonstration of the displaced subtrochanteric fracture of the left proximal femur. There is a partially imaged 4 cm intramuscular hematoma within the left vastus lateralis. 2. There are 3 cannulated screws transfixing the left femoral neck fracture. 3. No definite bowel wall thickening or obstruction on this noncontrast study. 4. No change in the small ventral hernia within the pelvis. 5. Patchy densities at the lung bases favor subsegmental atelectasis. A pneumonia could also have a similar appearance. 6. Additional findings as described above. Electronically signed by: Carmelo Snyder M.D. 05/21/2016 8:39 AM Dictated Date/Time: 05/21/2016 8:27 AM
[2016-05-21] MEDS: LORAZEPAM INJ 0.5 MG in SYRINGE 0.75 ML IV PRN (09:00)
--- NOTE | 2016-05-21 10:42 | Clinical Documentation Query ---
CLINICAL DOCUMENTATION QUERY 70 year old female who presents to the Emergency Room with complaints of severe left hip pain w/o fall. In April of this year underwent cannulated screwing of the Garden I femoral neck fracture of same hip. In your clinical opinion is this patient being managed for: ( ) Failure of fixation screws to left hip in setting of osteoporotic bone. ( ) Osteoporotic fracture of subtrochanteric region of proximal femur unrelated to previous screw cannulization. ( x ) Other explanation of clinical findings (Please Explain) ( ) Unable to determine (Please Define) ( ) Need to Discuss ( ) Not Agree The medical record reflects the following clinical findings, treatment, and risk factors. Clinical Indicators: Subtrochanteric proximal femur fracture with previous fixation of same hip Treatment: planned surgical hip replacement Risk Factors: Age, sex, Please clarify and document your clinical opinion in the progress notes and discharge summary. Terms such as "probable", "suspected", "likely", "questionable", "possible", or "still to be ruled out" are acceptable. IF IN AGREEMENT, YOU MUST DOCUMENT ABOVE DIAGNOSTIC STATEMENT IN DAILY PROGRESS NOTES AND DISCHARGE SUMMARY. This document is not part of the patient's record. Thank You, Panfilo Mendieta, RN [phone]
--- NOTE | 2016-05-21 10:43 | Clinical Documentation Query ---
CLINICAL DOCUMENTATION QUERY 70 year old female who presents to the Emergency Room with complaints of severe left hip pain w/o fall. In April of this year underwent cannulated screwing of the Garden I femoral neck fracture of same hip. In your clinical opinion is this patient being managed for: ( X ) Left femur fracture, possibly secondary to failure of previous fixation screws to left femoral neck in the setting of osteoporosis ( ) Osteoporotic fracture of subtrochanteric region of proximal femur unrelated to previous screw cannulization. ( ) Other explanation of clinical findings (Please Explain) ( ) Unable to determine (Please Define) ( ) Need to Discuss ( ) Not Agree The medical record reflects the following clinical findings, treatment, and risk factors. Clinical Indicators: Subtrochanteric proximal femur fracture with previous fixation of same hip Treatment: planned surgical hip replacement Risk Factors: Age, sex, Please clarify and document your clinical opinion in the progress notes and discharge summary. Terms such as "probable", "suspected", "likely", "questionable", "possible", or "still to be ruled out" are acceptable. IF IN AGREEMENT, YOU MUST DOCUMENT ABOVE DIAGNOSTIC STATEMENT IN DAILY PROGRESS NOTES AND DISCHARGE SUMMARY. This document is not part of the patient's record. Thank You, Panfilo Mendieta, LUIS ENRIQUE [phone]
[2016-05-21] MEDS ORDERED: MIDAZOLAM HCL 1 MG/ML 2ML VIAL ONE (12:21)
[2016-05-21] MEDS ORDERED: FENTANYL CITRATE INJ 50 MCG/1 ML 2 ML VIAL ONE ×2 (12:21→16:08)
[2016-05-21] MEDS ORDERED: ONDANSETRON INJ 2 MG/ML 2 ML VIAL IV PRN ×2 (12:45→16:15)
[2016-05-21] MEDS ORDERED: PHENYLEPHRINE 100MCG/ML 5ML SYR IV PRN (12:45)
[2016-05-21] MEDS ORDERED: HYDROmorphone INJ 2 MG/ML SYR/VIAL IV PRN (12:45)
[2016-05-21] MEDS ORDERED: LABETALOL HCL IV 5 MG/ML 20ML IV PRN (12:45)
[2016-05-21] MEDS ORDERED: ATROPINE SULFATE 0.1 MG/ML 5ML SYR IV PRN (12:45)
[2016-05-21] MEDS: SODIUM CHLORIDE 0.9% 1000ML 1,000 ML IV SCH ×2 (13:27→18:06)
[2016-05-21] MEDS ORDERED: ROPIVACAINE 5MG/ML 30 ML 150 MG, BUPIVACAINE/EPINEPHR 0.5% MPF 30 ML, KETOROLAC TROMETH... INFIL SCH ×7 (14:00)
[2016-05-21] MEDS ORDERED: ROCURONIUM BROMIDE 10 MG/ML 5 ML VIAL ONE ×2 (14:21→14:48)
[2016-05-21] MEDS ORDERED: PROPOFOL IV EMULSION 10 MG/ML 20 ML VIAL IV ONE (14:21)
[2016-05-21] MEDS ORDERED: PHENYLEPHRINE 100MCG/ML 5ML SYR ONE ×3 (14:21→14:49)
[2016-05-21] MEDS ORDERED: DEXAMETHASONE SOD INJ 4 MG/ML VIAL ONE (14:21)
[2016-05-21] MEDS ORDERED: ONDANSETRON INJ 2 MG/ML 2 ML VIAL ONE ×2 (14:21→15:42)
[2016-05-21] MEDS ORDERED: KETAMINE HCL INJ 50 MG/ML 10 ML VIAL ONE (14:33)
[2016-05-21] MEDS ORDERED: GLYCOPYRROLATE INJ 0.2 MG/ML VIAL ONE (15:13)
[2016-05-21] MEDS ORDERED: NEOSTIGMINE METHYLSULFATE 5 MG/5 ML SYR ONE (15:13)
[2016-05-21 16:12] LABS: HEMATOCRIT 27.8 % (37-47)
[2016-05-21] MEDS ORDERED: ZOLPIDEM TARTRATE 5 MG TAB PO PRN (16:15)
[2016-05-21] MEDS ORDERED: SOD PHOSPHATE/SOD BIPHOSPHATE ENEMA 132 ML BTL PR PRN (16:15)
[2016-05-21] MEDS ORDERED: BISACODYL 10 MG SUPP PR PRN (16:15)
[2016-05-21] MEDS ORDERED: ALUMINUM/MAGNESIUM/SIMETH (MAALOX MAX) 30 ML UDC PO PRN (16:15)
[2016-05-21] MEDS ORDERED: DiphenhydrAMINE HCL 50 MG/ML VIAL IV PRN (16:15)
[2016-05-21] MEDS ORDERED: MAGNESIUM HYDROXIDE SUSP 30 ML UDC PO PRN (16:15)
[2016-05-21] MEDS ORDERED: BACITRACIN 50000 UNIT VIAL IR ONE (16:22)
--- NOTE | 2016-05-21 16:22 | [facility] Post Operative Brief Note ---
Immediate Operative Summary Operative Date May 21, 2016. Pre-Operative Diagnosis Left hip fracture Post-Operative Diagnosis Same as preop Procedure(s) Performed ORIF femur fx left Surgeon Dr. Ortega Associate Programmer Analyst Surgeon(s) Heri Carbajal PA-C Estimated Blood Loss 1000cc Findings displaced fracture through cannulated screw entry holes Disposition Recovery Room / PACU
--- NOTE | 2016-05-21 16:27 | DIAGNOSTIC IMAGING REPORT ---
INTRAOPERATIVE LEFT HIP 4 VIEWS CLINICAL HISTORY: Left hip fracture COMPARISON STUDY: 05/20/2016 FLUOROSCOPY TIME: 93 seconds. FINDINGS: 4 fluoroscopic spot images are provided for interpretation. There are 2 cannulated screws in the femoral neck. The subtrochanteric fracture has been fixated with a lateral metallic plate which extends from the proximal to mid femoral shaft over the greater trochanter. There is a single greater trochanteric screw. There are multiple cerclage wires. IMPRESSION: Internally fixated subtrochanteric fracture. Electronically signed by: Nitin Samayoa M.D. 05/21/2016 4:26 PM Dictated Date/Time: 05/21/2016 4:23 PM
--- NOTE | 2016-05-21 16:50 | OPERATIVE REPORT ---
DATE OF OPERATION: 05/21/2016 PREOPERATIVE DIAGNOSIS: Subtrochanteric fracture through screw entry holes, left femur. POSTOPERATIVE DIAGNOSIS: Same. PROCEDURES: Removal of previously placed screws, open reduction and internal fixation of subtrochanteric femur fracture and refixation of femoral neck fracture with cannulated screws. SURGEON: Dr. Ortega. POPPED [employer]N OVEN ATTENDANT: Heri Carbajal PA-C. ANESTHESIA: General. COMPLICATIONS: None. DESCRIPTION OF PROCEDURE: Following induction of adequate general anesthesia, the patient was placed in right lateral decubitus position and an extended Rupinder-Langenbeck incision was made over the lateral aspect of the left femur. Meticulous hemostasis was addressed through the case; however, significant blood loss occurred irregardless of the large nature of the procedure. The fracture was initially reduced using a bone reduction forceps to a GTR plate. Image intensification was utilized throughout the case. The plate was affixed to the distal fragment using 4 cortical bone screws. These were all placed onto the vastus lateralis. The proximal fixation was carried out using 3 cables, 2 through the GTR plate and 1 free. An additional screw was placed through the hole made to accommodate the GTR plate handle, which had been removed. Following this, 2 additional 7.3 cancellous bone screws were placed, traversing the previous femoral neck fracture, fixing the incompletely healed femoral neck fracture once again. The wound was thoroughly irrigated with pulsatile irrigation. The split in the vastus lateralis was closed using a running #1 Vicryl suture. Thorough irrigation was carried out first. The fascia was closed using #1 Vicryl [id number] sutures, subcutaneous tissue was closed using 0 Dexon, skin was closed with bella. Sterile dressing of Adaptic, 4x4s, ABDs and foam tape was applied. Hemoglobin was drawn toward the end of the procedure, the results of which are not available at the time of this dictation. The patient was transported to the recovery room in stable and good condition. She tolerated the procedure well. I attest to the content of the Intraoperative Record and any orders documented therein. Any exceptio ns are noted below.
--- NOTE | 2016-05-21 16:50 | Progress Note ---
Subjective Date of Service: May 21, 2016. Subjective Pt evaluation today including: chart review Pt has been in OR all afternoon. I did not see pt, but did review chart. Problem List Medical Problems: (1) Hip fracture, left Status: Acute (2) Metabolic encephalopathy Status: Acute (3) Pneumonia Status: Acute (4) Tibia fracture Status: Acute Objective Vital Signs Date Time Temp Pulse Resp B/P Pulse Ox O2 Delivery O2 Flow Rate FiO2 05/21/16 11:24 74 16 96 Room Air 05/21/16 09:05 95/62 05/21/16 07:15 37.3 78 16 88/51 94 Room Air 05/21/16 07:05 Room Air 05/21/16 00:00 Room Air 05/20/16 22:58 36.9 74 14 91/59 96 Room Air 05/20/16 19:59 91 18 92 Room Air Laboratory Results Last 24 Hours Test 05/20/16 21:55 05/21/16 04:51 05/21/16 16:00 Urine Color YELLOW Urine Appearance CLEAR Urine pH 6.0 Urine Specific [place] 1.016 Urine Protein NEG Urine Glucose (UA) NEG Urine Ketones NEG Urine Occult Blood 1+ Urine Nitrite NEG Urine Bilirubin NEG Urine Urobilinogen NEG Urine Leukocyte Esterase SMALL Urine WBC (Auto) 1-5 /hpf Urine RBC (Auto) 5-10 /hpf Urine Hyaline Casts (Auto) 1-5 /lpf Urine Epithelial Cells (Auto) 20-30 /lpf Urine Bacteria (Auto) NEG White Blood Count 6.84 K/uL Red Blood Count 3.06 M/uL Hemoglobin 9.5 g/dL 8.8 g/dL Hematocrit 30.5 % 27.8 % Mean Corpuscular Volume 99.7 fL Mean Corpuscular Hemoglobin 31.0 pg Mean Corpuscular Hemoglobin Concent 31.1 g/dl RDW Standard Deviation 53.3 fL RDW Coefficient of Variation 14.8 % Platelet Count 412 K/uL Mean Platelet Volume 9.5 fL Sodium Level 142 mmol/L Potassium Level 4.7 mmol/L Chloride Level 112 mmol/L Carbon Dioxide Level 18 mmol/L Anion Gap 12.0 mmol/L Blood Urea Nitrogen 20 mg/dl Creatinine 1.60 mg/dl Est Creatinine Clear Calc Drug Dose 26.9 ml/min Estimated GFR () 37.7 Estimated GFR (Non- 32.5 BUN/Creatinine Ratio 12.6 Random Glucose 76 mg/dl Calcium Level 8.1 mg/dl Assessment and Plan 70 y/o female with a history of CKD stage III, anemia of chronic disease, CHF, depression/anxiety, and hypothyroidism who presented to the ED on 05/20 with left hip and swelling. X-rays show acute displaced subtrochanteric fracture of proximal left femur and shows recent screw fixation of left femoral neck fracture. Afebrile, VSS. -Pain management, DVT prophylaxis, and PT/OT as per primary team -CXR shows interstitial thickening which is likely chronic, no acute disease -EKG 69 bpm, NSR with no ischemic changes. -Pt is acceptable risk for surgery -Slight wheezing on exam, ordered Duonebs QIDR and q2h prn SOB/wheezing CKD stage III--baseline creatinine around 1.4-1.5 -Slightly impaired renal function with creatinine of 1.7, BUN of 22, likely secondary to dehydration -Continue NSS at 75 cc/hr -Monitor with daily PRP Anemia of chronic disease--stable -Baseline Hgb around 9, Hgb upon arrival 10.5 -Continue to monitor Depression/anxiety, mood disorder -Continue buspirone 15 mg PO BID, Seroquel 400 mg PO BID, Wellbutrin 150 mg PO BID, Depakote 500 mg PO BID, and Xanax 0.25 mg PO qhs Hypothyroidism -Continue Synthroid 175 mcg PO qd GERD -Continue omeprazole 40 mg PO qd Thank you for this consultation. We will continue to follow.
--- NOTE | 2016-05-21 17:39 | Anesthesiology Progress Note ---
Anesthesia Post Op Note Date & Time May 21, 2016 at 17:39 Vital Signs Pain Intensity: 0 Vital Signs Past 12 Hours Date Time Temp Pulse Resp B/P Pulse Ox O2 Delivery O2 Flow Rate FiO2 05/21/16 17:07 36.7 71 16 100/60 99 Nasal Cannula 2 05/21/16 16:58 102/58 05/21/16 16:55 20 05/21/16 16:55 70 20 05/21/16 16:53 105/59 05/21/16 16:50 18 05/21/16 16:50 72 18 05/21/16 16:48 96/73 05/21/16 16:45 19 05/21/16 16:45 77 19 05/21/16 16:43 98/61 05/21/16 16:40 20 05/21/16 16:40 85 20 110/75 05/21/16 16:40 36.4 71 18 110/75 99 Nasal Cannula 10 Mask 05/21/16 11:24 74 16 96 Room Air 05/21/16 09:05 95/62 05/21/16 07:15 37.3 78 16 88/51 94 Room Air 05/21/16 07:05 Room Air Notes Mental Status: alert / awake / arousable, participated in evaluation Pt Amnestic to Procedure: Yes Nausea / Vomiting: adequately controlled Pain: adequately controlled Airway Patency, RR, SpO2: stable & adequate BP & HR: stable & adequate Hydration State: stable & adequate Anesthetic Complications: no major complications apparent
[2016-05-21] MEDS: FERROUS GLUCONATE 324 MG TAB PO SCH (18:06)
[2016-05-21] MEDS: CLINDAMYCIN IV 600 MG in DEXTROSE 5% ADD-VANTAGE 50ML 50 ML IV SCH (18:06)
[2016-05-21] MEDS: ASPIRIN 81 MG ECTAB PO SCH (20:52)
[2016-05-21] MEDS: DOCUSATE SODIUM 100 MG CAP PO SCH (20:53)
[2016-05-21] MEDS: ALPRAZOLAM 0.25 MG TAB PO SCH (22:58)
[2016-05-22] VITALS (19 sets, daily range): BP systolic 69–100; BP diastolic 39–68; PULSE 82–109; TEMP 36.5–37.3; O2SAT 94–100
[2016-05-22] MEDS: CLINDAMYCIN IV 600 MG in DEXTROSE 5% ADD-VANTAGE 50ML 50 ML IV SCH (00:58)
[2016-05-22] MEDS: SODIUM CHLORIDE 0.9% 1000ML 1,000 ML IV SCH (04:59)
--- NOTE | 2016-05-22 05:06 | Clinical Documentation Query ---
CLINICAL DOCUMENTATION QUERY Operative record makes no reference to laterality (i.e. left hip). Please clarify which femur was surgically addressed. Thank You, Panfilo Mendieta RN [phone]
[2016-05-22] MEDS: LEVOTHYROXINE 175 MCG TAB PO SCH (05:33)
--- NOTE | 2016-05-22 07:36 | Orthopedic Progress Note ---
Orthopedic Progress Note Date of Service May 22, 2016. Subjective Post OP Day: 1 Reports: feeling well Objective calves soft nontender, N/V intact, dressing C/D/I (Thigh soft), toes mobile Date Time Temp Pulse Resp B/P Pulse Ox O2 Delivery O2 Flow Rate FiO2 05/22/16 07:15 37.3 90 16 96/66 100 Nasal Cannula 2.0 05/22/16 03:16 37.2 91 16 95/61 100 Nasal Cannula 2.0 05/21/16 23:57 Nasal Cannula 2.0 05/21/16 23:08 36.3 78 16 90/50 99 Nasal Cannula 2.0 05/21/16 20:46 36.3 74 16 94/63 94 Room Air 05/21/16 19:38 36.3 76 20 88/56 100 Nasal Cannula 2.0 05/21/16 18:50 71 18 100 Nasal Cannula 2.0 05/21/16 18:49 36.7 70 16 90/49 100 Nasal Cannula 2.0 05/21/16 18:10 71 20 112/77 Nasal Cannula 2.0 05/21/16 18:00 100 Nasal Cannula 2.0 05/21/16 17:45 79 Nasal Cannula 2.0 05/21/16 17:07 36.7 71 16 100/60 99 Nasal Cannula 2 05/21/16 16:58 102/58 05/21/16 16:55 20 05/21/16 16:55 70 20 05/21/16 16:53 105/59 05/21/16 16:50 18 05/21/16 16:50 72 18 05/21/16 16:48 96/73 05/21/16 16:45 19 05/21/16 16:45 77 19 05/21/16 16:43 98/61 05/21/16 16:40 20 05/21/16 16:40 85 20 110/75 05/21/16 16:40 36.4 71 18 110/75 99 Nasal Cannula 10 Mask 05/21/16 11:24 74 16 96 Room Air 05/21/16 09:05 95/62 Laboratory Results 24 Hours: Test 05/21/16 16:00 05/22/16 07:24 Hematocrit 27.8 % Hemoglobin 8.8 g/dL Additional Notes: H/H pending Assessment & Plan Assessment: 70 yo female stable POD #1 s/p ORIF left femur subtroch fx with previous femoral neck fx, acute blood loss anemia, H/H pending Plan: 1. Med management- pt likely will need transfusion 2. DVT prophylaxis- ASA, TEDs, SCDs 3. PT/OT- NWB left LE 4. D/C planning- pt will need rehab/SNF
[2016-05-22] MEDS: ALBUT/IPRATROP 3MG/0.5MG NEB 3 ML VIAL INH SCH (07:48)
[2016-05-22 08:12] LABS: HEMATOCRIT 23.3 % (37-47); MEAN CELL VOLUME 98.7 fL (80-100); MEAN CORPUSCULAR HEMOGLOBIN 30.9 pg (25-34); MEAN CORPUSCULAR HGB CONC 31.3 g/dl (32-36); MEAN PLATELET VOLUME 9.1 fL (7.4-10.4); PLATELET COUNT 314 K/uL (130-400); RED BLOOD COUNT 2.36 M/uL (4.2-5.4); WHITE BLOOD COUNT 9.05 K/uL (4.8-10.8)
[2016-05-22 08:30] LABS: BUN/CREATININE RATIO 10.5 (10-20); CALCIUM 7.6 mg/dl (8.5-10.1); CREATININE 1.5 mg/dl (0.60-1.20); POTASSIUM 4.5 mmol/L (3.5-5.1)
[2016-05-22] MEDS ORDERED: IPRATROPIUM BROMIDE/ALBUTEROL respimat INH INH PRN (08:30)
--- NOTE | 2016-05-22 08:34 | Anesthesiology Progress Note ---
Anesthesia Post Op Note Date & Time May 22, 2016 at 08:33 Vital Signs Pain Intensity: 2.0 Vital Signs Past 12 Hours Date Time Temp Pulse Resp B/P Pulse Ox O2 Delivery O2 Flow Rate FiO2 05/22/16 08:25 Nasal Cannula 2.0 05/22/16 07:49 98 12 98 Nasal Cannula 2.0 05/22/16 07:15 37.3 90 16 96/66 100 Nasal Cannula 2.0 05/22/16 03:16 37.2 91 16 95/61 100 Nasal Cannula 2.0 05/21/16 23:57 Nasal Cannula 2.0 05/21/16 23:08 36.3 78 16 90/50 99 Nasal Cannula 2.0 05/21/16 20:46 36.3 74 16 94/63 94 Room Air Notes Mental Status: alert / awake / arousable, participated in evaluation Pt Amnestic to Procedure: Yes Nausea / Vomiting: adequately controlled Pain: adequately controlled Airway Patency, RR, SpO2: stable & adequate BP & HR: stable & adequate Hydration State: stable & adequate Anesthetic Complications: no major complications apparent
--- NOTE | 2016-05-22 09:08 | DIAGNOSTIC IMAGING REPORT ---
LEFT FEMUR 2 VIEWS ROUTINE CLINICAL HISTORY: Postop internal fixation left femoral fracture COMPARISON: 05/20/2016 DISCUSSION: There is been internal fixation of the patient's subtrochanteric left hip fracture. Also evident is a femoral neck fracture. 2 cannulated screws traverse the femoral neck. There is a lateral metallic plate with a call like extensions extending over the greater trochanter. Most proximal cerclage wires are visualized. Also evident are postsurgical changes of a long stem total left knee arthroplasty. There are overlying skin bella. There is air in the soft tissues consistent with recent surgery. IMPRESSION: Internally fixated subtrochanteric hip fracture. Electronically signed by: Nitin Samayoa M.D. 05/22/2016 9:07 AM Dictated Date/Time: 05/22/2016 9:05 AM
[2016-05-22] MEDS: FERROUS GLUCONATE 324 MG TAB PO SCH ×3 (09:17→18:02)
[2016-05-22] MEDS: BusPIRone 15 MG TAB PO SCH ×2 (09:17→20:53)
[2016-05-22] MEDS: DOCUSATE SODIUM 100 MG CAP PO SCH ×2 (09:17→20:53)
[2016-05-22] MEDS: ASPIRIN 81 MG ECTAB PO SCH ×2 (09:17→20:53)
[2016-05-22] MEDS: MULTIVITAMIN TAB PO SCH (09:17)
[2016-05-22] MEDS: DIVALPROEX SODIUM 500 MG DELAY RELEASE TAB PO SCH ×2 (09:17→20:53)
[2016-05-22] MEDS: QUETIAPINE FUMARATE 200 MG TAB PO SCH ×2 (09:17→20:53)
[2016-05-22] MEDS: BuPROPion SR 150 MG TABCR PO SCH ×2 (09:17→20:53)
[2016-05-22] MEDS: OXYCODONE HCL IR 5 MG TAB (IMMEDIATE RELEASE) PO PRN ×2 (09:17→13:22)
[2016-05-22] MEDS: PRAMIPEXOLE DIHYDROCHLORIDE 0.25MG TAB PO SCH ×2 (09:17→20:53)
[2016-05-22] MEDS: IPRATROPIUM BROMIDE/ALBUTEROL respimat INH INH SCH ×4 (09:19→20:52)
--- NOTE | 2016-05-22 09:37 | Hospitalist Progress Note ---
Hospitalist Progress Note Date of Service May 22, 2016. (Kelly Romero ., VERONICA) 05/22/16 agree with pa note (Junito Chong MD) Subjective Pt evaluation today including: conversation w/ patient, physical exam, chart review, lab review, review of studies, review of inpatient medication list PO Intake: Tolerating PO diet Voiding: ontiveros catheter in place Patient reports feeling well. She states that her pain is manageable. She is tolerating her PO diet well. The patient reports passing gas and having a bowel movement yesterday. Ontiveros catheter is still in place but is supposed to be removed today, draining clear urine. The patient denies fevers, chills, sweats, chest pain, palpitations, claudication, cough, wheezing, shortness of breath, nausea, vomiting, abdominal pain, dysuria, hematuria, urinary retention , paralysis, weakness, numbness and tingling. Additional Comments: See HPI for pertinent positives and negatives. All other systems reviewed and negative. (Kelly Romero ., VERONICA) Pt evaluation today including: conversation w/ patient, physical exam, chart review, review of studies Constitutional: No fever ENT: No hearing loss Respiratory: No cough Cardiovascular: No chest pain Abdomen: No pain Female : No dysuria Psychiatric: No depression symptoms Heme: No abnormal bleeding/bruising (Junito Chong MD) Objective Vital Signs Date Time Temp Pulse Resp B/P Pulse Ox O2 Delivery O2 Flow Rate FiO2 05/22/16 09:20 36.7 91 16 90/52 05/22/16 08:25 Nasal Cannula 2.0 05/22/16 07:49 98 12 98 Nasal Cannula 2.0 05/22/16 07:15 37.3 90 16 96/66 100 Nasal Cannula 2.0 05/22/16 03:16 37.2 91 16 95/61 100 Nasal Cannula 2.0 05/21/16 23:57 Nasal Cannula 2.0 05/21/16 23:08 36.3 78 16 90/50 99 Nasal Cannula 2.0 05/21/16 20:46 36.3 74 16 94/63 94 Room Air 05/21/16 19:38 36.3 76 20 88/56 100 Nasal Cannula 2.0 05/21/16 18:50 71 18 100 Nasal Cannula 2.0 05/21/16 18:49 36.7 70 16 90/49 100 Nasal Cannula 2.0 05/21/16 18:10 71 20 112/77 Nasal Cannula 2.0 05/21/16 18:00 100 Nasal Cannula 2.0 05/21/16 17:45 79 Nasal Cannula 2.0 05/21/16 17:07 36.7 71 16 100/60 99 Nasal Cannula 2 05/21/16 16:58 102/58 05/21/16 16:55 20 05/21/16 16:55 70 20 05/21/16 16:53 105/59 05/21/16 16:50 18 05/21/16 16:50 72 18 05/21/16 16:48 96/73 05/21/16 16:45 19 05/21/16 16:45 77 19 05/21/16 16:43 98/61 05/21/16 16:40 20 05/21/16 16:40 85 20 110/75 05/21/16 16:40 36.4 71 18 110/75 99 Nasal Cannula 10 Mask 05/21/16 11:24 74 16 96 Room Air (Kelly Romero ., PA-C) Physical Exam General Appearance: WD/WN, no apparent distress Eyes: normal inspection, PERRL, EOMI ENT: normal ENT inspection, hearing grossly normal, pharynx normal Neck: supple, no JVD, trachea midline Respiratory/Chest: normal breath sounds, no respiratory distress, + wheezing ( bases, improved) Cardiovascular: regular rate, rhythm, no gallop, + systolic murmur Abdomen: normal bowel sounds, non tender, soft Extremities: no pedal edema, normal capillary refill, + pertinent finding ( dressing on left hip C/D/I, left hip TTP. No swelling, cap refill normal) Neurologic/Psychiatric: alert, normal mood/affect, oriented x 3 Skin: normal color, warm/dry, no rash (Kelly Romero ., PA-C) General Appearance: WD/WN, no apparent distress Eyes: normal inspection ENT: hearing grossly normal Neck: supple Respiratory/Chest: chest non-tender Cardiovascular: regular rate, rhythm Abdomen: normal bowel sounds Extremities: normal range of motion Neurologic/Psychiatric: alert (Junito Chong MD) Laboratory Results Last 24 Hours Test 05/21/16 16:00 05/22/16 08:05 Hemoglobin 8.8 g/dL 7.3 g/dL Hematocrit 27.8 % 23.3 % White Blood Count 9.05 K/uL Red Blood Count 2.36 M/uL Mean Corpuscular Volume 98.7 fL Mean Corpuscular Hemoglobin 30.9 pg Mean Corpuscular Hemoglobin Concent 31.3 g/dl RDW Standard Deviation 53.4 fL RDW Coefficient of Variation 15.1 % Platelet Count 314 K/uL Mean Platelet Volume 9.1 fL Sodium Level 142 mmol/L Potassium Level 4.5 mmol/L Chloride Level 113 mmol/L Carbon Dioxide Level 16 mmol/L Anion Gap 13.0 mmol/L Blood Urea Nitrogen 16 mg/dl Creatinine 1.50 mg/dl Est Creatinine Clear Calc Drug Dose 28.7 ml/min Estimated GFR () 40.8 Estimated GFR (Non- 35.2 BUN/Creatinine Ratio 10.5 Random Glucose 95 mg/dl Calcium Level 7.6 mg/dl (Kelly Romero, VERONICA) Diagnostic Results Reviewed the following studies and agree with interpretation as follows: Patient Name: EDA ISLAS Unit Number: [id number] Dictated: 05/22/16904 Transcribed: 05/22/16904 ARG Printed Date/Time: [~ rep prt dt]/[~ rep prt tm] [~ rep ct labl] - [~ rep ct ivnm] [facility] [place] [address] Dictated: 05/22/16904 Transcribed: 05/22/16904 ARG Printed Date/Time: [~ rep prt dt]/[~ rep prt tm] [~ rep ct labl] - [~ rep ct ivnm] Patient: EDA ISLAS Address1: [address] [place] [address] Rec: [id number] Address2: Acct ID: [id number] [facility] Zip: [place] [address] Date: 1945 Sex: F Room/Bed: E3011 Ref Phy: Brian Jennings M.D. SC: Claudia Att Phy: Gal Ortega M.D. Report #: [id number] Traci Phy: Gal Ortega M.D. Test: FMR Admit Phy: Gal Ortega M.D. Brand Leader: YESENIA Interpreting Phy: Nitin Samayoa M.D. Diagnosis: COLSED SUBTROCHANTERIC FRACTURE OF LEFT FERMUR Ordering Phy: Carbajal Shawn PAC Service Date: 05/22/16 Admit Date: 05/20/1700/25/17 MNE: [id number] CONF: DICTATED BY: Nitin Samayoa M.D.]] CC: Heri Carbajal P.A. Mextorf, Thomas M.D. Roeshot, Douglas, M.D. Endcc: [~ rep ct add3]] LEFT FEMUR 2 VIEWS ROUTINE CLINICAL HISTORY: Postop internal fixation left femoral fracture COMPARISON: 05/20/2016 DISCUSSION: There is been internal fixation of the patient's subtrochanteric left hip fracture. Also evident is a femoral neck fracture. 2 cannulated screws traverse the femoral neck. There is a lateral metallic plate with a call like extensions extending over the greater trochanter. Most proximal cerclage wires are visualized. Also evident are postsurgical changes of a long stem total left knee arthroplasty. There are overlying skin bella. There is air in the soft tissues consistent with recent surgery. IMPRESSION: Internally fixated subtrochanteric hip fracture. Electronically signed by: Nitin Samayoa M.D. 05/22/2016 9:07 AM Dictated Date/Time: 05/22/2016 9:05 AM The status of this report is Signed. Draft = Not yet reviewed or approved by Radiologist. Signed = Reviewed and approved by Radiologist. <AttendingPhy>Gal Ortega M.D.</AttendingPhy> <FamilyPhy>Brian Jennings M.D.</FamilyPhy> <PrimaryPhy>Gal Ortega M.D.</PrimaryPhy> <UnitNumber> [id number]</UnitNumber> <VisitNumber>[id number]</VisitNumber> <PatientName> EDA ISLAS</PatientName> <DateOfBirth>1945</DateOfBirth> <Location>C.3[facility]</ Location> <ServiceDate>05/20/16</ServiceDate> <MNE>ESINDI</MNE> <OrderingPhy> Solomon,, Heri PAC</OrderingPhy> <OrderingPhyMNE>f rep ord dr godfrey</OrderingPhyMNE > <DictatingPhyMNE>f rep dict dr godfrey</DictatingPhyMNE> <CCListMNE>f rep ct mne</ CCListMNE> <AdmittingPhyMNE>f pt admit dr godfrey</AdmittingPhyMNE> <AttendingPhyMNE >f pt attend dr godfrey</AttendingPhyMNE> <ConsultingPhyMNE>f pt consult dr godfrey</ConsultingPhyMNE> <FamilyPhyMNE>f pt fam dr godfrey</FamilyPhyMNE> <OtherPhyMNE>f pt other dr godfrey</OtherPhyMNE> < PrimaryPhyMNE>f pt prim care dr godfrey</PrimaryPhyMNE> <ReferringPhyMNE>f pt referring dr godfrey</ReferringPhyMNE> (Kelly Romero ., VERONICA) Assessment and Plan 70 y/o female with a history of CKD stage III, anemia of chronic disease, CHF, depression/anxiety, and hypothyroidism who presented to the ED on 05/20 with left hip and swelling. X-rays show acute displaced subtrochanteric fracture of proximal left femur and shows recent screw fixation of left femoral neck fracture. Afebrile, VSS. Left femur fracture, possibly secondary to failure of previous fixation screws to left femoral neck in the setting of osteoporosis -Pain management, DVT prophylaxis, and PT/OT as per primary team -CXR shows interstitial thickening which is likely chronic, no acute disease -EKG 69 bpm, NSR with no ischemic changes. -Pt is acceptable risk for surgery -Continue Duonebs QIDR and q2h prn SOB/wheezing CKD stage III--stable. Baseline creatinine around 1.4-1.5 -Slightly impaired renal function upon arrivalwith creatinine of 1.7, BUN of 22 , likely secondary to dehydration -Creatinine 1.5 on 05/22, BUN WNL at 16 -Continue NSS at 75 cc/hr due to hypotension (last BP 96/66) -Monitor with daily PRP Anemia of chronic disease--acute blood loss anemia secondary to surgery -Baseline Hgb around 9, Hgb upon arrival 10.5 -Hgb 7.3 on 05/22, primary team has ordered to transfuse 2 units of blood -Check serial H&H q6h x 4 to closely monitor Depression/anxiety, mood disorder -Continue buspirone 15 mg PO BID, Seroquel 400 mg PO BID, Wellbutrin 150 mg PO BID, Depakote 500 mg PO BID, and Xanax 0.25 mg PO qhs Hypothyroidism -Continue Synthroid 175 mcg PO qd GERD -Continue omeprazole 40 mg PO qd Dispo -Patient wants to go to [facility] for rehab after discharge, referral has been placed, awaiting determination. Awaiting PT evaluation. Thank you for this consultation. We will continue to follow. (Kelly Romero ., VERONICA) 70 y/o female with a history of CKD stage III, anemia of chronic disease, CHF, depression/anxiety, and hypothyroidism who presented to the ED on 05/20 with left hip and swelling. X-rays show acute displaced subtrochanteric fracture of proximal left femur and shows recent screw fixation of left femoral neck fracture. Afebrile, VSS. Left femur fracture, possibly secondary to failure of previous fixation screws to left femoral neck in the setting of osteoporosis cont Pain management, DVT prophylaxis, and PT/OT as per primary team CXR shows interstitial thickening which is likely chronic, no acute disease EKG 69 bpm, NSR with no ischemic changes. Continue Duonebs QIDR and q2h prn SOB/wheezing CKD stage III--stable. Baseline creatinine around 1.4-1.5 Slightly impaired renal function upon arrivalwith creatinine of 1.7, BUN of 22, likely secondary to dehydration Creatinine 1.5 on 05/22, BUN WNL at 16 Continue NSS at 75 cc/hr due to hypotension (last BP 96/66) Anemia of chronic disease--acute blood loss anemia secondary to surgery Baseline Hgb around 9, Hgb upon arrival 10.5 Hgb 7.3 on 05/22, primary team has ordered to transfuse 2 units of blood Check serial H&H q6h x 4 to closely monitor Depression/anxiety, mood disorder Continue buspirone 15 mg PO BID, Seroquel 400 mg PO BID, Wellbutrin 150 mg PO BID, Depakote 500 mg PO BID, and Xanax 0.25 mg PO qhs Hypothyroidism Continue Synthroid 175 mcg PO qd GERD Continue omeprazole 40 mg PO qd Dispo Patient wants to go to [facility] for rehab after discharge, referral has been placed, awaiting determination. Awaiting PT evaluation. FULL Code (Junito Chong MD)
[2016-05-22 18:22] LABS: HEMATOCRIT 30.8 % (37-47)
[2016-05-22] MEDS: ALPRAZOLAM 0.25 MG TAB PO SCH (20:53)
[2016-05-22 22:08] LABS: HEMATOCRIT 28.8 % (37-47)
[2016-05-23] MEDS: SODIUM CHLORIDE 0.9% 1000ML 1,000 ML IV SCH ×3 (00:05→18:43)
[2016-05-23] MEDS: OXYCODONE HCL IR 5 MG TAB (IMMEDIATE RELEASE) PO PRN ×2 (02:24→09:21)
[2016-05-23 04:27] LABS: HEMATOCRIT 28.5 % (37-47); HEMATOCRIT 29.7 % (37-47); MEAN CELL VOLUME 91.1 fL (80-100); MEAN CORPUSCULAR HEMOGLOBIN 31.3 pg (25-34); MEAN CORPUSCULAR HGB CONC 34.4 g/dl (32-36); MEAN PLATELET VOLUME 9.4 fL (7.4-10.4); PLATELET COUNT 243 K/uL (130-400); RED BLOOD COUNT 3.13 M/uL (4.2-5.4); WHITE BLOOD COUNT 11.52 K/uL (4.8-10.8)
[2016-05-23 04:46] LABS: BUN/CREATININE RATIO 12.2 (10-20); CALCIUM 7.5 mg/dl (8.5-10.1); CREATININE 1.4 mg/dl (0.60-1.20)
[2016-05-23] MEDS: LEVOTHYROXINE 175 MCG TAB PO SCH (05:46)
[2016-05-23 07:45] VITALS: BP 85/55; PULSE 60; PULSE 92; TEMP 36.4; O2SAT 99
[2016-05-23] MEDS: IPRATROPIUM BROMIDE/ALBUTEROL respimat INH INH SCH ×4 (09:13→21:08)
[2016-05-23] MEDS: DOCUSATE SODIUM 100 MG CAP PO SCH ×2 (09:15→21:09)
[2016-05-23] MEDS: FERROUS GLUCONATE 324 MG TAB PO SCH ×3 (09:15→17:14)
[2016-05-23] MEDS: ASPIRIN 81 MG ECTAB PO SCH ×2 (09:15→21:09)
[2016-05-23] MEDS: DIVALPROEX SODIUM 500 MG DELAY RELEASE TAB PO SCH ×2 (09:15→21:09)
[2016-05-23] MEDS: MULTIVITAMIN TAB PO SCH (09:15)
[2016-05-23] MEDS: PRAMIPEXOLE DIHYDROCHLORIDE 0.25MG TAB PO SCH ×2 (09:15→21:09)
[2016-05-23] MEDS: BusPIRone 15 MG TAB PO SCH ×2 (09:15→21:09)
[2016-05-23] MEDS: BuPROPion SR 150 MG TABCR PO SCH ×2 (09:16→21:08)
[2016-05-23] MEDS: QUETIAPINE FUMARATE 200 MG TAB PO SCH ×2 (09:16→21:09)
[2016-05-23 11:09] VITALS: BP 92/56; PULSE 93; TEMP 36.6; O2SAT 96
[2016-05-23 11:27] LABS: HEMATOCRIT 30.8 % (37-47)
--- NOTE | 2016-05-23 13:04 | Orthopedic Progress Note ---
Orthopedic Progress Note Date of Service May 23, 2016. Subjective Post OP Day: 3 Reports: feeling well, pain controlled w PO medications, Denies: SOB, calf pain , chest pain, light headedness, nausea / vomiting Objective calves soft nontender, N/V intact, hip located, capillary refill less than 2 sec., dressing C/D/I, A&O x3, toes mobile Date Time Temp Pulse Resp B/P Pulse Ox O2 Delivery O2 Flow Rate FiO2 05/23/16 11:09 36.6 93 16 92/56 96 Room Air 05/23/16 09:33 Room Air 05/23/16 07:45 36.4 92 16 85/55 99 Room Air 05/23/16 00:00 Room Air 05/22/16 23:31 36.5 109 16 90/60 94 Room Air 05/22/16 16:13 36.6 96 16 90/63 98 2.0 05/22/16 16:02 91/60 05/22/16 16:00 88/61 05/22/16 15:57 36.8 104 16 69/39 97 2.0 05/22/16 15:30 Nasal Cannula 2.0 05/22/16 15:00 36.7 90 14 91/60 99 2.0 05/22/16 14:29 36.6 97 17 89/58 99 2.0 05/22/16 14:00 36.7 96 18 81/57 100 2.0 05/22/16 13:45 37.2 97 18 88/58 96 2.0 05/22/16 13:30 36.8 105 18 90/58 Laboratory Results 24 Hours: Test 05/22/16 17:59 05/22/16 22:00 05/23/16 04:06 05/23/16 11:17 Hematocrit 30.8 % 28.8 % 28.5 % 30.8 % Hemoglobin 10.4 g/dL 9.6 g/dL 9.8 g/dL 10.1 g/dL Assessment & Plan Assessment: 70 yo female stable POD #3 s/p ORIF left femur subtroch fx with previous femoral neck fx, acute blood loss anemia, H/H improved to 10.1 Plan: 1. Med management- tranfusion yesterday, improved to 10.1 2. DVT prophylaxis- ASA, TEDs, SCDs 3. PT/OT- NWB left LE 4. D/C planning- pt will need rehab/SNF Inhouse Planning Pain Management: Oxy IR DVT Prophylaxis: TEDs, SCDs, ASA Discharge Planning Discharge Planning: custodial facility
--- NOTE | 2016-05-23 14:01 | Progress Note ---
Subjective Subjective Date of Service: May 23, 2016. Pt evaluation today including: conversation w/ patient, physical exam, chart review, review of studies, review of inpatient medication list Problem List Medical Problems: (1) Hip fracture, left Status: Acute (2) Metabolic encephalopathy Status: Acute (3) Pneumonia Status: Acute (4) Tibia fracture Status: Acute Review of Systems Constitutional: No fever ENT: No hearing loss Respiratory: No cough Cardiac: No chest pain Abdomen: No pain Female : No dysuria Neurologic: No memory loss Psychiatric: No depression symptoms Endo: No fatigue Physical Exam Vital Signs Vital Signs Past 24 Hours: Date Time Temp Pulse Resp B/P Pulse Ox O2 Delivery O2 Flow Rate FiO2 05/23/16 11:09 36.6 93 16 92/56 96 Room Air 05/23/16 09:33 Room Air 05/23/16 07:45 36.4 92 16 85/55 99 Room Air 05/23/16 00:00 Room Air 05/22/16 23:31 36.5 109 16 90/60 94 Room Air 05/22/16 16:13 36.6 96 16 90/63 98 2.0 05/22/16 16:02 91/60 05/22/16 16:00 88/61 05/22/16 15:57 36.8 104 16 69/39 97 2.0 05/22/16 15:30 Nasal Cannula 2.0 05/22/16 15:00 36.7 90 14 91/60 99 2.0 05/22/16 14:29 36.6 97 17 89/58 99 2.0 05/22/16 14:00 36.7 96 18 81/57 100 2.0 Physical Exam: General Appearance: WD/WN, no apparent distress Eyes: bilateral eyes normal inspection ENT: hearing grossly normal, pharynx normal Neck: supple, no JVD Respiratory/Chest: chest non-tender, no respiratory distress Cardiovascular: no edema, no JVD Abdomen: normal bowel sounds, soft Extremities: non-tender, no pedal edema Neurologic/Psychiatric: no motor/sensory deficits Skin: warm/dry Medications Medications: Current Inpatient Medications Medications (Trade) Dose Ordered Sig/Khadra Route Start Time Stop Time Status Last Admin Dose Admin Acetaminophen (Tylenol Tab) 650 mg Q6H PRN PO 05/20/16 11:15 06/19/16 11:14 Al Hydroxide/Mg Hydroxide (Maalox Susp) 30 ml Q6H PRN PO 05/20/16 11:15 06/19/16 11:14 Magnesium Hydroxide 30 ml 30 ml Q6H PRN PO 05/20/16 11:15 06/19/16 11:14 Sodium Chloride (Nss 1000ml) 1,000 ml @ 75 mls/hr [id number] IV 05/20/16 11:09 06/19/16 11:08 05/23/16 05:46 75 MLS/HR Alprazolam (Xanax Tab) 0.25 mg HS PO 05/20/16 21:00 06/19/16 20:59 05/22/16 20:53 0.25 MG Bupropion HCl (Wellbutrin-Sr Tab) 150 mg BID PO 05/20/16 21:00 06/19/16 20:59 05/23/16 09:16 150 MG Buspirone HCl (BusPAR TAB) 15 mg BID PO 05/20/16 21:00 06/19/16 20:59 05/23/16 09:15 15 MG Divalproex Sodium (Depakote Delay Rel Tab) 500 mg BID PO 05/20/16 21:00 06/19/16 20:59 05/23/16 09:15 500 MG Levothyroxine Sodium (Synthroid Tab) 175 mcg DAILYBB PO 05/21/16 06:00 06/20/16 05:59 05/23/16 05:46 175 MCG Pramipexole Dihydrochloride (miraPEX TAB) 0.25 mg BID PO 05/20/16 21:00 06/19/16 20:59 05/23/16 09:15 0.25 MG Rizatriptan Benzoate (Maxalt Tab) 10 mg DAILY PRN PO 05/20/16 11:15 06/19/16 11:14 Miscellaneous Information (Order Awaiting Action) 1 ea QS N/A 05/20/16 16:00 06/19/16 15:59 Oxycodone HCl (Roxicodone Immediate Rel Tab) FOR PAIN, 5-10MG 5MG FOR P... Q4HWA PRN PO 05/20/16 11:45 06/03/16 11:44 05/23/16 09:21 10 MG Hydromorphone HCl 0.5 mg 0.5 mg Q3HWA PRN IV 05/20/16 12:00 06/03/16 11:59 05/21/16 23:17 0.5 MG Lorazepam/Syringe (Ativan Inj/ Syringe) 1 ml @ 0.5 mls/min TID PRN IV 05/20/16 12:00 06/19/16 11:59 05/21/16 09:00 0.5 MLS/MIN Quetiapine Fumarate (seroQUEL TAB) 400 mg BID PO 05/20/16 21:00 06/19/16 20:59 05/23/16 09:16 400 MG Magnesium Hydroxide (Milk Of Magnesia Susp) 30 ml Q6H PRN PO 05/21/16 16:15 06/20/16 16:14 Bisacodyl (Dulcolax Supp) 10 mg DAILY PRN WI 05/21/16 16:15 06/20/16 16:14 Sodium Biphosphate/ Sodium Phosphate (Fleet Enema) 132 ml DAILY PRN WI 05/21/16 16:15 06/20/16 16:14 Docusate Sodium (coLACE CAP) 100 mg BID PO 05/21/16 21:00 06/20/16 20:59 05/23/16 09:15 100 MG Diphenhydramine HCl (Benadryl Inj) 25 mg Q8H PRN IV 05/21/16 16:15 06/20/16 16:14 05/22/16 09:19 25 MG Al Hydrox/Mg Hydrox/Simethicone (Maalox Max Susp) 15 ml Q4H PRN PO 05/21/16 16:15 06/20/16 16:14 Zolpidem Tartrate (Ambien Tab) 5 mg HSZ PRN PO 05/21/16 16:15 06/20/16 16:14 Multivitamins (Multivitamin Tab) 1 tab QAM PO 05/22/16 09:00 06/21/16 08:59 05/23/16 09:15 1 TAB Ondansetron HCl (Zofran Inj) 4 mg Q6H PRN IV 05/21/16 16:15 06/20/16 16:14 Ferrous Gluconate (Ferrous Gluconate Tab) 324 mg TIDM PO 05/21/16 17:45 06/20/16 17:44 05/23/16 12:41 324 MG Aspirin (Ecotrin Tab) 81 mg BID PO 05/21/16 21:00 06/20/16 20:59 05/23/16 09:15 81 MG Albuterol/ Ipratropium (Combivent Respimat Inh) 1 puffs QID INH 05/22/16 09:00 06/21/16 08:59 05/23/16 12:42 1 PUFFS Albuterol/ Ipratropium (Combivent Respimat Inh) 1 puffs Q2H PRN INH 05/22/16 08:30 06/21/16 08:29 Diphenhydramine HCl (Benadryl Cap) 25 mg Q8 PRN PO 05/22/16 22:00 06/21/16 21:59 Laboratory Data Labs: Last 24 Hours Test 05/22/16 17:59 05/22/16 22:00 05/23/16 04:06 05/23/16 11:17 Hemoglobin 10.4 g/dL 9.6 g/dL 9.8 g/dL 10.1 g/dL Hematocrit 30.8 % 28.8 % 28.5 % 30.8 % White Blood Count 11.52 K/uL Red Blood Count 3.13 M/uL Mean Corpuscular Volume 91.1 fL Mean Corpuscular Hemoglobin 31.3 pg Mean Corpuscular Hemoglobin Concent 34.4 g/dl RDW Standard Deviation 61.7 fL RDW Coefficient of Variation 18.6 % Platelet Count 243 K/uL Mean Platelet Volume 9.4 fL Sodium Level 142 mmol/L Potassium Level 4.0 mmol/L Chloride Level 114 mmol/L Carbon Dioxide Level 17 mmol/L Anion Gap 11.0 mmol/L Blood Urea Nitrogen 17 mg/dl Creatinine 1.40 mg/dl Est Creatinine Clear Calc Drug Dose 30.7 ml/min Estimated GFR () 44.3 Estimated GFR (Non- 38.2 BUN/Creatinine Ratio 12.2 Random Glucose 97 mg/dl Calcium Level 7.5 mg/dl Assessment and Plan 70 y/o female with a history of CKD stage III, anemia of chronic disease, CHF, depression/anxiety, and hypothyroidism who presented to the ED on 05/20 with left hip and swelling. X-rays show acute displaced subtrochanteric fracture of proximal left femur and shows recent screw fixation of left femoral neck fracture. Afebrile, VSS. Left femur fracture, possibly secondary to failure of previous fixation screws to left femoral neck in the setting of osteoporosis cont Pain management, DVT prophylaxis, and PT/OT as per primary team CXR shows interstitial thickening which is likely chronic, no acute disease EKG 69 bpm, NSR with no ischemic changes. Continue Duonebs QIDR and q2h prn SOB/wheezing CKD stage III--stable. Baseline creatinine around 1.4-1.5 Slightly impaired renal function upon arrival with creatinine of 1.7, BUN of 22 , likely secondary to dehydration Creatinine 1.4 on 05/23 Anemia of chronic disease--acute blood loss anemia secondary to surgery Baseline Hgb around 9, Hgb upon arrival 10.5 Hgb 7.3 on 05/22, hgb 10.1 todat after transfusion 2 units of blood Check serial H&H Depression/anxiety, mood disorder Continue buspirone 15 mg PO BID, Seroquel 400 mg PO BID, Wellbutrin 150 mg PO BID, Depakote 500 mg PO BID, and Xanax 0.25 mg PO qhs Hypothyroidism Continue Synthroid 175 mcg PO qd GERD Continue omeprazole 40 mg PO qd Dispo Patient wants to go to [facility] for rehab after discharge, referral has been placed FULL Code
[2016-05-23 15:16] VITALS: BP 100/68; PULSE 106; TEMP 36.4; O2SAT 98
[2016-05-23 15:54] VITALS: PULSE 88
[2016-05-23] MEDS: ALPRAZOLAM 0.25 MG TAB PO SCH (21:13)
[2016-05-23 22:47] VITALS: BP 91/55; PULSE 85; TEMP 36.6; O2SAT 94
[2016-05-24] MEDS: LEVOTHYROXINE 175 MCG TAB PO SCH (05:28)
[2016-05-24 05:37] LABS: HEMATOCRIT 27.1 % (37-47); MEAN CELL VOLUME 91.9 fL (80-100); MEAN CORPUSCULAR HEMOGLOBIN 30.2 pg (25-34); MEAN CORPUSCULAR HGB CONC 32.8 g/dl (32-36); MEAN PLATELET VOLUME 9.5 fL (7.4-10.4); PLATELET COUNT 241 K/uL (130-400); RED BLOOD COUNT 2.95 M/uL (4.2-5.4); WHITE BLOOD COUNT 8.85 K/uL (4.8-10.8)
[2016-05-24 06:03] LABS: BUN/CREATININE RATIO 12.4 (10-20); CALCIUM 7.6 mg/dl (8.5-10.1); CREATININE 1.2 mg/dl (0.60-1.20); POTASSIUM 3.9 mmol/L (3.5-5.1)
[2016-05-24 07:14] VITALS: BP 89/58; PULSE 82; TEMP 36.6; O2SAT 99
[2016-05-24] MEDS: SODIUM CHLORIDE 0.9% 1000ML 1,000 ML IV SCH ×2 (07:33→21:26)
[2016-05-24 08:05] VITALS: BP 96/63; PULSE 93
--- NOTE | 2016-05-24 08:30 | Orthopedic Progress Note ---
Orthopedic Progress Note Date of Service May 24, 2016. Subjective Post OP Day: 4 Reports: feeling well, pain controlled w PO medications, Denies: calf pain, chest pain, light headedness, nausea / vomiting Objective calves soft nontender, N/V intact, hip located, capillary refill less than 2 sec., dressing C/D/I, A&O x3, toes mobile Date Time Temp Pulse Resp B/P Pulse Ox O2 Delivery O2 Flow Rate FiO2 05/24/16 08:05 93 18 96/63 05/24/16 07:53 Room Air 05/24/16 07:14 36.6 82 16 89/58 99 Room Air 05/23/16 22:47 36.6 85 16 91/55 94 Room Air 05/23/16 19:30 Room Air 05/23/16 15:54 88 05/23/16 15:35 Room Air 05/23/16 15:16 36.4 106 16 100/68 98 Room Air 05/23/16 11:09 36.6 93 16 92/56 96 Room Air 05/23/16 09:33 Room Air Laboratory Results 24 Hours: Test 05/23/16 11:17 05/24/16 05:10 Hematocrit 30.8 % 27.1 % Hemoglobin 10.1 g/dL 8.9 g/dL Assessment & Plan Assessment: 70 yo female stable POD #4 s/p ORIF left femur subtroch fx with previous femoral neck fx, acute blood loss anemia, H/H dropped to 8.9- currently asymptomatic Plan: 1. Med management- tranfusion wednesday, improved to 10.1, wednesday down to 8.9 asymptomatic currently, will hold on transfusion unless Medicine feels necessary 2. DVT prophylaxis- ASA, TEDs, SCDs 3. PT/OT- NWB left LE 4. D/C planning- pt will need rehab/SNF-awaiting approval from [facility] on Wednesday Inhouse Planning Pain Management: Oxy IR DVT Prophylaxis: TEDs, SCDs, ASA Discharge Planning Discharge Planning: correction facility
[2016-05-24] MEDS: FERROUS GLUCONATE 324 MG TAB PO SCH ×3 (08:59→17:56)
[2016-05-24] MEDS: IPRATROPIUM BROMIDE/ALBUTEROL respimat INH INH SCH ×4 (08:59→20:34)
[2016-05-24] MEDS: DOCUSATE SODIUM 100 MG CAP PO SCH ×2 (09:01→20:33)
[2016-05-24] MEDS: BusPIRone 15 MG TAB PO SCH ×2 (09:01→20:33)
[2016-05-24] MEDS: ASPIRIN 81 MG ECTAB PO SCH ×2 (09:01→20:33)
[2016-05-24] MEDS: DIVALPROEX SODIUM 500 MG DELAY RELEASE TAB PO SCH ×2 (09:01→20:33)
[2016-05-24] MEDS: PRAMIPEXOLE DIHYDROCHLORIDE 0.25MG TAB PO SCH ×2 (09:02→20:33)
[2016-05-24] MEDS: BuPROPion SR 150 MG TABCR PO SCH ×2 (09:02→20:33)
[2016-05-24] MEDS: MULTIVITAMIN TAB PO SCH (09:02)
[2016-05-24] MEDS: QUETIAPINE FUMARATE 200 MG TAB PO SCH ×2 (09:02→20:33)
--- NOTE | 2016-05-24 12:17 | Progress Note ---
Subjective Subjective Date of Service: May 24, 2016. Pt evaluation today including: conversation w/ patient, physical exam, chart review, lab review, review of studies, review of inpatient medication list Problem List Medical Problems: (1) Hip fracture, left Status: Acute (2) Metabolic encephalopathy Status: Acute (3) Pneumonia Status: Acute (4) Tibia fracture Status: Acute Review of Systems Constitutional: No fever ENT: No hearing loss Cardiac: No chest pain Abdomen: No pain Female : No dysuria Neurologic: No memory loss Psychiatric: No depression symptoms Physical Exam Vital Signs Vital Signs Past 24 Hours: Date Time Temp Pulse Resp B/P Pulse Ox O2 Delivery O2 Flow Rate FiO2 05/24/16 08:05 93 18 96/63 05/24/16 07:53 Room Air 05/24/16 07:14 36.6 82 16 89/58 99 Room Air 05/23/16 22:47 36.6 85 16 91/55 94 Room Air 05/23/16 19:30 Room Air 05/23/16 15:54 88 05/23/16 15:35 Room Air 05/23/16 15:16 36.4 106 16 100/68 98 Room Air Physical Exam: General Appearance: WD/WN, no apparent distress Eyes: bilateral eyes normal inspection ENT: hearing grossly normal, pharynx normal Neck: supple, no JVD Respiratory/Chest: chest non-tender, no respiratory distress Cardiovascular: no gallop, no JVD Abdomen: soft, no organomegaly Extremities: non-tender, normal inspection Neurologic/Psychiatric: no motor/sensory deficits, normal mood/affect Skin: normal color, no rash Medications Medications: Reported Home Medications Medications Dose Route/Sig Max Daily Dose Days Date Category Stool Softener (Docusate Sodium) 100 Mg Tab 1 Cap PO HS PRN 05/20/16 Reported Seroquel (Quetiapine Fumarate) 200 Mg Tab 400 Mg PO BID 05/20/16 Reported Prilosec (Omeprazole) 40 Mg Cap 40 Mg PO DAILY 05/20/16 Reported Aspirin EC Low Dose (Aspirin) 81 Mg Ectab 81 Mg PO BID 30 05/04/16 Rx Tylenol (Acetaminophen) 500 Mg Tab 1,000 Mg PO Q8 PRN 11/03/15 Reported Depakote (Divalproex Sodium) 500 Mg Tab 1 Tab PO BID 07/11/15 Reported Maxalt (Rizatriptan Benzoate) 10 Mg Tab 10 Mg PO DAILY PRN 02/18/15 Reported Synthroid (Levothyroxine Sodium) 175 Mcg Tab 175 Mcg PO QAM 02/18/15 Reported Probiotic (Probiotic Product) 1 Tab Tab 1 Tab PO QAM 02/18/15 Reported Buspar (Buspirone Hcl) 15 Mg Tab 15 Mg PO BID 04/27/12 Reported Xanax (Alprazolam) 0.25 Mg Tab 0.25 Mg PO HS 10/13/11 Reported Mirapex (Pramipexole Dihydrochloride) 0.125 Mg Tab 0.25 Mg PO BID 10/13/11 Reported Wellbutrin Sr (Bupropion Hcl) 150 Mg Tab 150 Mg PO BID 10/13/11 Reported Laboratory Data Labs: Last 24 Hours Test 05/24/16 05:10 White Blood Count 8.85 K/uL Red Blood Count 2.95 M/uL Hemoglobin 8.9 g/dL Hematocrit 27.1 % Mean Corpuscular Volume 91.9 fL Mean Corpuscular Hemoglobin 30.2 pg Mean Corpuscular Hemoglobin Concent 32.8 g/dl RDW Standard Deviation 60.6 fL RDW Coefficient of Variation 18.0 % Platelet Count 241 K/uL Mean Platelet Volume 9.5 fL Sodium Level 143 mmol/L Potassium Level 3.9 mmol/L Chloride Level 114 mmol/L Carbon Dioxide Level 18 mmol/L Anion Gap 11.0 mmol/L Blood Urea Nitrogen 15 mg/dl Creatinine 1.20 mg/dl Est Creatinine Clear Calc Drug Dose 35.8 ml/min Estimated GFR () 53.4 Estimated GFR (Non- 46.1 BUN/Creatinine Ratio 12.4 Random Glucose 78 mg/dl Calcium Level 7.6 mg/dl Assessment and Plan 70 y/o female with a history of CKD stage III, anemia of chronic disease, CHF, depression/anxiety, and hypothyroidism who presented to the ED on 05/20 with left hip and swelling. X-rays show acute displaced subtrochanteric fracture of proximal left femur and shows recent screw fixation of left femoral neck fracture. Afebrile, VSS. Left femur fracture, possibly secondary to failure of previous fixation screws to left femoral neck in the setting of osteoporosis cont Pain management, DVT prophylaxis, and PT/OT as per primary team CXR shows interstitial thickening which is likely chronic, no acute disease EKG 69 bpm, NSR with no ischemic changes. Continue Duonebs QIDR and q2h prn SOB/wheezing CKD stage III--stable. Baseline creatinine around 1.4-1.5 Slightly impaired renal function upon arrival with creatinine of 1.7, BUN of 22 , likely secondary to dehydration Creatinine 1.2 on 05/24 from 1.4 on 05/23 Anemia of chronic disease--acute blood loss anemia secondary to surgery Baseline Hgb around 9, Hgb upon arrival 10.5 Hgb 7.3 on 05/22, hgb 10.1 05/23 after transfusion 2 units of blood, today 8.9 Check serial H&H Depression/anxiety, mood disorder Continue buspirone 15 mg PO BID, Seroquel 400 mg PO BID, Wellbutrin 150 mg PO BID, Depakote 500 mg PO BID, and Xanax 0.25 mg PO qhs Hypothyroidism Continue Synthroid 175 mcg PO qd GERD Continue omeprazole 40 mg PO qd Dispo Patient wants to go to [facility], hopefully tomorrow FULL Code
[2016-05-24] MEDS: OXYCODONE HCL IR 5 MG TAB (IMMEDIATE RELEASE) PO PRN ×2 (13:47→18:47)
[2016-05-24 14:52] VITALS: BP 98/66; PULSE 95; TEMP 36.5; O2SAT 100
[2016-05-24] MEDS: ALPRAZOLAM 0.25 MG TAB PO SCH (20:33)
[2016-05-24 23:20] VITALS: BP 80/43; PULSE 95; TEMP 36.5; O2SAT 93
[2016-05-25] VITALS (8 sets, daily range): BP systolic 89–161; BP diastolic 53–71; PULSE 81–114; TEMP 36.5–37.1; O2SAT 94–98
[2016-05-25] MEDS: LEVOTHYROXINE 175 MCG TAB PO SCH (05:19)
[2016-05-25 06:07] LABS: HEMATOCRIT 27.1 % (37-47); MEAN CELL VOLUME 93.1 fL (80-100); MEAN CORPUSCULAR HEMOGLOBIN 30.6 pg (25-34); MEAN CORPUSCULAR HGB CONC 32.8 g/dl (32-36); MEAN PLATELET VOLUME 9.6 fL (7.4-10.4); PLATELET COUNT 277 K/uL (130-400); RED BLOOD COUNT 2.91 M/uL (4.2-5.4)
[2016-05-25 06:16] LABS: CALCIUM 7.7 mg/dl (8.5-10.1); CREATININE 1.3 mg/dl (0.60-1.20); POTASSIUM 4.1 mmol/L (3.5-5.1)
[2016-05-25] MEDS: IPRATROPIUM BROMIDE/ALBUTEROL respimat INH INH SCH ×2 (07:44→13:08)
[2016-05-25] MEDS: OXYCODONE HCL IR 5 MG TAB (IMMEDIATE RELEASE) PO PRN ×2 (07:44→15:47)
[2016-05-25] MEDS: PRAMIPEXOLE DIHYDROCHLORIDE 0.25MG TAB PO SCH (08:35)
[2016-05-25] MEDS: DIVALPROEX SODIUM 500 MG DELAY RELEASE TAB PO SCH (08:35)
[2016-05-25] MEDS: ASPIRIN 81 MG ECTAB PO SCH (08:35)
[2016-05-25] MEDS: BusPIRone 15 MG TAB PO SCH (08:35)
[2016-05-25] MEDS: FERROUS GLUCONATE 324 MG TAB PO SCH ×2 (08:35→13:08)
[2016-05-25] MEDS: DOCUSATE SODIUM 100 MG CAP PO SCH (08:35)
[2016-05-25] MEDS: QUETIAPINE FUMARATE 200 MG TAB PO SCH (08:36)
[2016-05-25] MEDS: MULTIVITAMIN TAB PO SCH (08:36)
[2016-05-25] MEDS: BuPROPion SR 150 MG TABCR PO SCH (08:36)
[2016-05-25] MEDS: SODIUM CHLORIDE 0.9% 1000ML 1,000 ML IV SCH (09:41)
[2016-05-25] MEDS ORDERED: ASPEC81 PO (10:08)
[2016-05-25] MEDS ORDERED: RXC5 PO (10:08)
--- NOTE | 2016-05-25 10:17 | Discharge Instructions ---
Discharge Instructions Admission Reason for Admission: Colsed Subtrochanteric Fracture Of Left Fermur Discharge Discharge Diagnosis / Problem: Closed Proximal Femur Fx Discharge Goals Goal(s): Decrease discomfort, Improve function Activity Recommendations Activity Level: Assistance Required Therapies: Physical Therapy (gait training), Occupational Therapy (ADL's and transfers) Weightbearing Status: Left non-weightbearing . Additional Information Patient informed of condition: Yes Advance Directives: No DNR: No Level of Care: Skilled Communicable Disease: No Prognosis: Stable Gomez Catheter: No Instructions / Follow-Up Instructions / Follow-Up [facility] DISCHARGE INSTRUCTIONS: HIP FRACTURE SELF CARE INSTRUCTIONS: A. You are to ambulate with a walker or crutches for approximately 6 weeks. B. You are Nonweightbearing on your operative lower extremity for at least 6 weeks. C. Wear low heeled shoes with non-slip soles D. Be sure that your floors are free of things that could trip you throw rugs, electrical cords, and small objects. Avoid wet and waxed floors, especially with crutches/walker/cane. E. Try to walk several times a day with rest periods between. F. You may shower 48 hours after surgery and get the incision area wet, but DO NOT soak or submerge incision area in water. (No baths, swimming pools, hot tubs ) G. You may or may not have a large, band-aid like dressing over your incision ( Aquacel). This will remain on your incision for 7 days, and then can be removed. You CAN shower with this on. If you have a regular gauze dressing, change it daily. Once the incision remains dry, you may leave it to the open air. If incision is leaking through the dressing, please call the office . H. Do NOT apply soap or any ointment/lotions directly over incision. I. You may use ice as needed to operative site. SPECIAL CARE INSTRUCTIONS: VERY IMPORTANT TO READ AND REVIEW A. You may be at risk for phlebitis or blood clots. a. Wear surgical stockings (JUANJOSE hose) for 2 weeks after surgery to improve circulation and reduce swelling. b. Take ASPIRIN 81 po twice daily for 4 weeks or as directed. This is your blood thinner. c. If you are on Coumadin- you will have daily/weekly blood work to monitor your levels. This will be done by either your family physician/ finishing frame runner (if you are on Coumadin chronically) versus your orthopedic surgeon. Expect a phone call the day of or the day after your blood work is drawn to adjust your dose accordingly. B. There are a few signs you need to watch for after you are home. Call [facility] at [phone] if you experience any of the following: a. If you have a temperature of 101 degrees or higher. b. Sudden increase in pain in your hip not relieved by rest or pain medication. c. Any fluid or drainage from the incision; redness of the incision. d. Shortness of breath or chest pain. B. Please call [facility] at [phone] if you have any questions or concerns about your operation or recovery. C. Call your physician if: a. Temperature is greater than 101 degrees (F). b. Pain is not relieved by prescribed pain medications. c. Increase drainage or redness from incision. d. Unanswered questions or concerns. D. Pain Medication: a. You will be prescribed pain medication upon discharge that should last till your first post-operative appointment. b. If you experience nausea and/or skin rash, discontinue this medication and contact our office for an alternative medication. c. Caution- narcotic pain medication can cause constipation. FOLLOW UP VISIT: Please call [facility] at [phone] to schedule a follow up appointment 10-14 days from the date of your surgery date. Current Hospital Diet Patient's current hospital diet: Regular Diet Discharge Diet Recommended Diet: Regular Diet Procedures Procedures Performed: ORIF femur fx left Pending Studies Studies pending at discharge: no Physician Orders On Transfer Dressing Changes: Daily prn Vital Signs: routine Medical Emergencies . Who to Call and When: Medical Emergencies: If at any time you feel your situation is an emergency, please call 911 immediately. . Non-Emergent Contact Non-Emergency issues call your: Surgeon Call Non-Emergent contact if: temperature is above 101.5, your pain is not controlled, your pain is worsening, wound has increased drainage, wound has increased redness . . "Provider Documentation" section prepared by Edward Bullock. Core Measure Problem Core Measures: None
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
--- NOTE | 2016-05-25 11:24 | Orthopedic Progress Note ---
Orthopedic Progress Note Date of Service May 25, 2016. Subjective Post OP Day: 5 Reports: feeling well, light headedness (states mild LH when getting OOB), Denies: SOB, calf pain, chest pain, nausea / vomiting Additional Notes: Pt seems mildly confused but pleasant. Nursing states she was given 2 OxyIR just recently. Having some mild LH when getting OOB. Objective calves soft nontender, N/V intact, incision C/D/I, toes mobile Date Time Temp Pulse Resp B/P Pulse Ox O2 Delivery O2 Flow Rate FiO2 05/25/16 09:38 87 90/53 05/25/16 07:50 Room Air 05/25/16 06:48 37.1 81 16 92/57 94 Room Air 05/25/16 04:10 36.5 88 18 94/60 95 Room Air 05/24/16 23:40 Room Air 05/24/16 23:20 36.5 95 18 80/43 93 Room Air 05/24/16 15:10 Nasal Cannula 05/24/16 14:52 36.5 95 16 98/66 100 Room Air Laboratory Results 24 Hours: Test 05/25/16 05:20 Hematocrit 27.1 % Hemoglobin 8.9 g/dL Assessment & Plan Assessment: 70 yo female stable POD #5 s/p ORIF left femur subtroch fx with previous femoral neck fx Acute Blood Loss Anemia Plan: 1. Med management- tranfusion wednesday, improved to 10.1, Remains at 8.9 this AM ; Dr Dunne ordering orthostatics today. 2. DVT prophylaxis- ASA, TEDs, SCDs 3. PT/OT- NWB left LE 4. D/C planning- [facility] vs [facility] [place]? Plan for dc today if orthostatics are reasonable. Inhouse Planning Pain Management: Dilaudid, Oxy IR DVT Prophylaxis: TEDs, SCDs, ASA Discharge Planning [facility]charge Planning[facility] jail facility Pain Management: Oxy IR DVT Prophylaxis: ASA
--- NOTE | 2016-06-03 15:19 | DISCHARGE SUMMARY ---
CHIEF COMPLAINT: Left femur fracture. Please see complete history and physical examination. HOSPITAL COURSE: The patient underwent ORIF of her left proximal femur fracture without complication. She tolerated the procedure well and was discharged to recovery room in stable condition. Her postop course was relatively uneventful. Her postoperative pain was reasonably well controlled with a combination of spinal anesthesia, IV, and oral pain medications. She was started on aspirin for DVT prophylaxis. She also utilized JUANJOSE stockings and SCDs for additional prophylaxis. She was transfused 2 units of packed red cells for low H\T\H of 7.3 and 23.3 and responded appropriately and was 10.4 and 30.8 at a later evaluation. Her surgical dressing was maintained for approximately 2 days and then discontinued. Her incision was benign. She tolerated postop physical therapy reasonably well where she was ambulating and nonweightbearing. A medical consult was asked for to assist in her postoperative medical management. She did not have any significant postoperative medical issues. She was transferred to [facility] on postoperative day 5. She will continue her physical therapy there. She will continue her aspirin for DVT prophylaxis and follow up in our office in approximately 10-14 days for initial postop evaluation.
== END 2016-05-25 16:27 | DRG 481 ==
LOC: ENRESERVTM → ENRESERVDT → EDBD 08:42 → C.EDC 08:44 → C.3E 11:23
PROC: 0QP704Z Removal of Internal Fixation Device from Left Upper Femur, Open Approach (ICD-10-PCS; principal; 2016-05-21 07:30)
PROC: 0QS704Z Reposition Left Upper Femur with Internal Fixation Device, Open Approach (ICD-10-PCS; principal; 2016-05-21 07:30)
DX: T84.125A Displacement of internal fixation device of left femur, initial encounter (principal); M80.052A Age-related osteoporosis with current pathological fracture, left femur, initial encounter for fracture; D62 Acute posthemorrhagic anemia; E87.2 Acidosis; E03.9 Hypothyroidism, unspecified; K21.9 Gastro-esophageal reflux disease without esophagitis; D63.8 Anemia in other chronic diseases classified elsewhere; I50.9 Heart failure, unspecified; N18.3 Chronic kidney disease, stage 3 (moderate); F32.9 Major depressive disorder, single episode, unspecified; Z87.891 Personal history of nicotine dependence; E86.0 Dehydration; Y92.009 Unspecified place in unspecified non-institutional (private) residence as the place of occurrence of the external cause; Y79.2 Prosthetic and other implants, materials and accessory orthopedic devices associated with adverse incidents; Z98.890 Other specified postprocedural states

== ENCOUNTER 2017-04-03 12:04 | Emergency (ER) | payer OTHER ==
[~2017-04-03] VITALS: Ht 154.9 cm; Wt 38.1 kg
[~2017-04-03 12:04] MED LIST changes: -CLC100 PO; +DOCU100T7 PO; -OMEP40CA PO; +OMEP40CA41 PO; -QUET-205 PO; +SRQ/200 PO; -STLS PO; -TRAM-10 PO
[2017-04-03 12:10] VITALS: O2SAT 95
--- NOTE | 2017-04-03 12:59 | EMERGENCY ROOM VISIT NOTE ---
History Report prepared by Dre: Armando Devi Under the Supervision of: Dr. Panchito Pang M.D. First contact with patient: 12:47 Chief Complaint: CONFUSION Stated Complaint: CONFUSION Nursing Triage Summary: Pt brought ALS from a personal alf in [place]. Pt has had increased confusion x 2 days, has been leaning towards the right, has been having difficulty ambulating, unable to feed her self, staff noticed slurred speech, per EMS pt has slight L facial droop, equal hand grasps bilaterally and no arm drift. Pt is oriented to person only which is her usual. History of Present Illness The patient is a 71 year old female who presents to the Emergency Room with increased confusion for the past two days. This history is limited secondary to the patient's confusion and is provided by the long term notes. At baseline, the patient is only oriented to person. They brought her to the hospital to be evaluated further secondary to two days of increased confusion. She has been leaning to her right side with slurred speech as well. She is unable to ambulate or feed herself. Source of History: long term notes History Limited By: AMS Onset: two days ago Position: other (Global) Symptom Intensity: moderate Quality: other (Confusion) Timing: worsening Note: She has been leaning to her right with slurred speech. She is unable to ambulate. Review of Systems ROS is limited secondary to the patient's confusion. Past Medical & Surgical Medical Problems: (1) Acute renal insufficiency (2) Anxiety disorder, unspecified (3) CHF (congestive heart failure) (4) Closed subtrochanteric fracture of left femur (5) GERD (gastroesophageal reflux disease) (6) HTN (hypertension) (7) Hypertension (8) Hypothyroidism, unspecified (9) Left knee pain (10) Pneumonia (11) Presence of artificial knee joint, bilateral (12) Right middle lobe pneumonia Family History Breast cancer Dementia Ovarian cancer Social History Smoking Status: Never Smoker Alcohol Use: none Drug Use: none Marital Status: Housing Status: lives with family Occupation Status: retired Current/Historical Medications Scheduled Alprazolam (Xanax), 0.25 MG PO HS Aspirin (Aspirin Chewable), 81 MG PO DAILY Bupropion Hcl (Wellbutrin Sr), 150 MG PO BID Buspirone Hcl (Buspar), 15 MG PO BID Divalproex Sodium (Depakote), 1 TAB PO BID Furosemide (Lasix), 20 MG PO QAM Levofloxacin (Levaquin), 500 MG PO DAILY Levothyroxine Sodium (Synthroid), 175 MCG PO QAM Multivitamin (Multivitamin), 1 TAB PO DAILY Omeprazole (Prilosec), 40 MG PO DAILY Potassium Chloride (Micro-K Ext Rel), 10 MEQ PO DAILY Pramipexole (Mirapex), 0.25 MG PO BID Probiotic Product (Probiotic), 1 TAB PO QAM Quetiapine Fumarate (Seroquel), 400 MG PO BID Senna (Senokot), 1 TAB PO QAM Scheduled PRN Acetaminophen (Tylenol), 1,000 MG PO Q8 PRN for Pain Docusate Sodium (Stool Softener), 1 CAP PO HS PRN for Constipation Rizatriptan Benzoate (Maxalt), 10 MG PO DAILY PRN for UD Tramadol (Ultram), 50 MG PO Q8H PRN for Pain Allergies Coded Allergies: Pantoprazole (Verified Allergy, Intermediate, RASH, 04/03/17) Piperacillin (Verified Allergy, Intermediate, RASH, 04/03/17) Tazobactam (Verified Allergy, Intermediate, RASH, 04/03/17) Morphine (Verified Adverse Reaction, Severe, bp plummeted,CONFUSION, ) Physical Exam Vital Signs Date Time Temp Pulse Resp B/P (MAP) Pulse Ox O2 Delivery O2 Flow Rate FiO2 04/03/17 15:50 88 18 134/67 98 04/03/17 15:02 98 16 103/71 98 Room Air 04/03/17 14:34 94 20 97 04/03/17 14:30 90 20 106/73 95 04/03/17 14:09 93 18 99/70 95 04/03/17 13:42 90 18 97/76 96 04/03/17 13:34 96 15 04/03/17 13:04 90 24 96 04/03/17 12:34 93 20 94 04/03/17 12:25 96 20 92/65 Room Air 04/03/17 12:16 96 04/03/17 12:15 94 20 92/65 Room Air 04/03/17 12:13 92/65 04/03/17 12:10 95 Room Air Physical Exam GENERAL: Patient is a healthy-appearing well-nourished pleasantly confused female. HEAD: Normocephalic atraumatic EYES: Ocular movements intact pupils equal and react to light OROPHARYNX mucous membranes are moist no exudates present no erythema or edema present NECK: Supple no nuchal rigidity CHEST: Good equal expansion LUNGS: Clear and equal to auscultation CARDIAC: Normal S1 and S2 ABDOMEN: Soft nontender no guarding BACK: No CVA tenderness EXTREMITIES: No pain upon palpation normal muscle strength in all groups no clubbing cyanosis or edema NEURO: Patient is following commands and answering questions appropriately. Alert and oriented x3 Cranial Nerves 2-12 grossly intact Medical Decision & Procedures ER Provider Diagnostic Interpretation: Radiology results as stated below per my review and radiologist interpretation: CT OF THE HEAD WITHOUT CONTRAST CLINICAL HISTORY: Stroke. Confusion. COMPARISON STUDY: MRI of the brain February 27, [address] July 15, 2015. CT DOSE: 537.48 mGy.cm TECHNIQUE: Helical axial images of the head were obtained without IV contrast. Automated exposure control was utilized for the study. A dose lowering technique was utilized adhering to the principles of ALARA. FINDINGS: No acute intracranial hemorrhage, midline shift or mass effect is present. Ventricular system is stable. Basilar cisterns are patent. There are no extra axial collections. White matter hypodensity suggests small vessel disease. There are no findings to suggest acute dural sinus thrombosis or acute territorial infarct. There are no significant calvarial abnormalities. Visualized portions of the sinuses and mastoid air cells are clear. IMPRESSION: No acute intracranial findings. Electronically signed by: Jomar Helm M.D. 04/03/2017 2:26 PM Dictated Date/Time: 04/03/2017 2:22 PM CHEST ONE VIEW PORTABLE CLINICAL HISTORY: Stroke. COMPARISON STUDY: Chest radiograph September or 2016. FINDINGS: Lung volumes are normal. There are cholecystectomy clips. No pneumothorax or pleural effusion is present. Mild left midlung and right lower lung opacities are present. There is no evidence of pulmonary edema. There is no lobar consolidation. IMPRESSION: Mild left midlung and right lower lung opacities which could reflect a mild infectious process or atelectasis. Radiographic follow up to ensure resolution is recommended. Electronically signed by: Jomar Helm M.D. 04/03/2017 1:53 PM Dictated Date/Time: 04/03/2017 1:52 PM Laboratory Results 04/03/17 13:25 Red Blood Count 3.74, Mean Corpuscular Volume 94.1, Mean Corpuscular Hemoglobin 30.7, Mean Corpuscular Hemoglobin Concent 32.7, Mean Platelet Volume 10.1, Neutrophils (%) (Auto) 71.7, Lymphocytes (%) (Auto) 12.4, Monocytes (%) (Auto) 13.4, Eosinophils (%) (Auto) 2.1, Basophils (%) (Auto) 0.1, Neutrophils # (Auto ) 6.82, Lymphocytes # (Auto) 1.18, Monocytes # (Auto) 1.28, Eosinophils # (Auto ) 0.20, Basophils # (Auto) 0.01 04/03/17 13:25 Test 04/03/17 13:25 04/03/17 13:31 04/03/17 14:36 White Blood Count 9.52 K/uL (4.8-10.8) Red Blood Count 3.74 M/uL (4.2-5.4) Hemoglobin 11.5 g/dL (12.0-16.0) Hematocrit 35.2 % (37-47) Mean Corpuscular Volume 94.1 fL (80-100) Mean Corpuscular Hemoglobin 30.7 pg (25-34) Mean Corpuscular Hemoglobin Concent 32.7 g/dl (32-36) Platelet Count 243 K/uL (130-400) Mean Platelet Volume 10.1 fL (7.4-10.4) Neutrophils (%) (Auto) 71.7 % Lymphocytes (%) (Auto) 12.4 % Monocytes (%) (Auto) 13.4 % Eosinophils (%) (Auto) 2.1 % Basophils (%) (Auto) 0.1 % Neutrophils # (Auto) 6.82 K/uL (1.4-6.5) Lymphocytes # (Auto) 1.18 K/uL (1.2-3.4) Monocytes # (Auto) 1.28 K/uL (0.11-0.59) Eosinophils # (Auto) 0.20 K/uL (0-0.5) Basophils # (Auto) 0.01 K/uL (0-0.2) RDW Standard Deviation 43.3 fL (36.4-46.3) RDW Coefficient of Variation 12.6 % (11.5-14.5) Immature Granulocyte % (Auto) 0.3 % Immature Granulocyte # (Auto) 0.03 K/uL (0.00-0.02) Prothrombin Time 11.7 SECONDS (9.0-12.0) Prothromb Time International Ratio 1.1 (0.9-1.1) Activated Partial Thromboplast Time 44.8 SECONDS (21.0-31.0) Partial Thromboplastin Ratio 1.7 Urine Color YELLOW Urine Appearance CLEAR (CLEAR) Urine pH 5.5 (4.5-7.5) Urine Specific Startex 1.020 (1.000-1.030) Urine Protein NEG (NEG) Urine Glucose (UA) NEG (NEG) Urine Ketones NEG (NEG) Urine Occult Blood NEG (NEG) Urine Nitrite NEG (NEG) Urine Bilirubin NEG (NEG) Urine Urobilinogen NEG (NEG) Urine Leukocyte Esterase NEG (NEG) Est Creatinine Clear Calc Drug Dose 18.2 ml/min Estimated GFR () 34.1 Estimated GFR (Non- 29.4 BUN/Creatinine Ratio 16.5 (10-20) Calcium Level 8.6 mg/dl (8.5-10.1) Magnesium Level 2.2 mg/dl (1.8-2.4) Total Creatine Kinase 286 U/L (26-192) Creatine Kinase MB 2.5 ng/ml (0.5-3.6) Creatine Kinase MB Ratio 0.9 (0-3.0) Troponin I < 0.015 ng/ml (0-0.045) Bedside Hemoglobin 11.9 g/dl (12.0-16.0) Bedside Hematocrit 35 % (37-47) Bedside Sodium 137 mEq/L (135-144) Bedside Potassium 3.9 mEq/L (3.3-5.0) Bedside Chloride 101 mEq/L (101-112) Bedside Total CO2 23 mEq/l (24-31) Anion Gap 17.0 mmol/L (16-25) Bedside Blood Urea Nitrogen 29 mg/dl (7-18) Bedside Creatinine 1.8 mg/dl (0.6-1.3) Bedside Glucose (other) 87 mg/dl (70-99) Bedside Ionized Calcium (Yolie) 1.12 mmol/l (1.12-1.32) Influenza Type A (RT-PCR) Neg for Influ A (NEG) Influenza Type A Antigen Neg for Influ A (NEG) Influenza Type B Antigen Neg for Influ B (NEG) Influenza Type B (RT-PCR) Neg for Influ B (NEG) Labs reviewed by ED physician. Medications Administered Medications (Trade) Dose Ordered Sig/Khadra Route Start Time Stop Time Status Last Admin Dose Admin Dextrose (Dextrose 50% 50ML Syringe) 50 ml NOW STAT IV 04/03/17 13:33 04/03/17 13:34 DC 04/03/17 13:38 50 ML Levofloxacin (Levaquin Tab) 500 mg NOW STAT PO 04/03/17 14:10 04/03/17 14:11 DC 04/03/17 14:58 500 MG Sodium Chloride 500 ml @ 999 mls/hr Q31M STAT IV 04/03/17 14:55 04/03/17 15:25 DC 04/03/17 15:02 999 MLS/HR ECG Indication: altered mental status Rate (beats per minute): 93 Rhythm: normal sinus Findings: no acute ischemic change, no ectopy, other (old anterior infarct) ED Course 1247: Past medical records reviewed. The patient was evaluated in room C5. A complete history and physical examination was performed. 1333: Ordered Dextrose 50 ml IV 1410: Ordered Levofloxacin 500 mg PO 1455: Ordered Sodium Chloride 500 ml @ 999 mls/hr IV 1457: I spoke with the patient's daughter at this time. She agrees to send the patient back to her assisted living facility. The patient is ready for discharge. Medical Decision Differential diagnosis: Etiologies such as metabolic, infection, hypoglycemia, electrolyte abnormalities , cardiac sources, intracerebral event, toxicologic, neurologic, as well as others were entertained. This is a 71-year-old female who presents emergency department with no complaints. I will note that the patient is normotensive and not tachycardic and is not hypoxic. There is concern that the patient has had some altered mental status. She is slightly dehydrated and therefore was given normal saline bolus. Sugar was found to be low also the patient was given food as well as dextrose. She does appear to have slight pneumonia on chest x-ray. Based on the fact that the patient does not have an elevation in her white blood count cell count I feel that she can be safely discharged back to the long term. I did discuss my findings with the patient's family who are also in agreement with treatment plan. Medication Reconcilliation Current Medication List: was personally reviewed by me Blood Pressure Screening Patient's blood pressure: Low blood pressure Impression Primary Impression: Confusion Additional Impression: Pneumonia Scribe Attestation The scribe's documentation has been prepared under my direction and personally reviewed by me in its entirety. I confirm that the note above accurately reflects all work, treatment, procedures, and medical decision making performed by me. Departure Information Dispostion Home / Self-Care Prescriptions Levofloxacin (Levaquin) 500 Mg Tab 500 MG PO DAILY for 7 Days, #7 TAB Prov: Panchito Pang MD 04/03/17 Referrals Brian Jennings M.D. (PCP) Forms HOME CARE DOCUMENTATION FORM, IMPORTANT VISIT INFORMATION, WORK / SCHOOL INSTRUCTIONS Patient Instructions My [facility], Pneumonia (Bacterial) - [facility] Additional Instructions Follow up Dr Jennings's office You have been examined and treated today on an emergency basis only. This is not a substitute for, or an effort to provide, complete comprehensive medical care. It is impossible to recognize and treat all injuries or illnesses in a single emergency department visit. It is therefore important that you follow up closely with Dr Jennings. Call as soon as possible for an appointment. Thank you for your time and consideration. I look forward to speaking with you again soon. Please don't hesitate to call us if you have any questions. Problem Qualifiers Additional Impression: Pneumonia Pneumonia type: due to unspecified organism Laterality: unspecified laterality Lung location: unspecified part of lung Qualified Codes: J18.9 - Pneumonia, unspecified organism
[2017-04-03] MEDS ORDERED: DEXTROSE 50% 50 ML SYR IV STA (13:33)
[2017-04-03 13:47] LABS: BASO % 0.1 %; BASO ABS # 0.01 K/uL (0-0.2); COMPLETE YES; EOS % 2.1 %; HEMATOCRIT 35.2 % (37-47); IG% 0.3 %; LYMPH % 12.4 %; LYMPH ABS # 1.18 K/uL (1.2-3.4); MEAN CELL VOLUME 94.1 fL (80-100); MEAN CORPUSCULAR HEMOGLOBIN 30.7 pg (25-34); MEAN CORPUSCULAR HGB CONC 32.7 g/dl (32-36); MEAN PLATELET VOLUME 10.1 fL (7.4-10.4); MONO % 13.4 %; NEUT % 71.7 %; PLATELET COUNT 243 K/uL (130-400); RED BLOOD COUNT 3.74 M/uL (4.2-5.4); WHITE BLOOD COUNT 9.52 K/uL (4.8-10.8)
[2017-04-03 13:53] LABS: MANUAL MICROSCOPIC REQUIRED? NO; URINE APPEARANCE CLEAR (CLEAR); URINE BILIRUBIN NEG (NEG); URINE COLOR YELLOW; URINE NITRITE NEG (NEG); URINE PH 5.5 (4.5-7.5); UROBILINOGEN NEG (NEG)
[2017-04-03 13:54] LABS: INR 1.1 (0.9-1.1); PARTIAL THROMBOPLASTIN RATIO 1.7; PROTHROMBIN TIME (PATIENT) 11.7 SECONDS (9.0-12.0)
--- NOTE | 2017-04-03 13:55 | DIAGNOSTIC IMAGING REPORT ---
CHEST ONE VIEW PORTABLE CLINICAL HISTORY: Stroke. COMPARISON STUDY: Chest radiograph September or 2016. FINDINGS: Lung volumes are normal. There are cholecystectomy clips. No pneumothorax or pleural effusion is present. Mild left midlung and right lower lung opacities are present. There is no evidence of pulmonary edema. There is no lobar consolidation. IMPRESSION: Mild left midlung and right lower lung opacities which could reflect a mild infectious process or atelectasis. Radiographic follow up to ensure resolution is recommended. Electronically signed by: Jomar Helm M.D. 04/03/2017 1:53 PM Dictated Date/Time: 04/03/2017 1:52 PM
[2017-04-03 13:56] LABS: REVIEW REQ? NO
[2017-04-03] MEDS ORDERED: ASPCH81X PO (13:57)
[2017-04-03] MEDS ORDERED: FURO-85 PO (13:59)
[2017-04-03 14:00] LABS: ZZUR CULT IF INDIC CLEAN CATCH NO
[2017-04-03] MEDS ORDERED: MULT-506 PO (14:00)
[2017-04-03] MEDS ORDERED: POTA10CA28 PO (14:02)
[2017-04-03 14:03] LABS: BLOOD UREA NITROGEN 28 mg/dl (7-18); BUN/CREATININE RATIO 16.5 (10-20); CALCIUM 8.6 mg/dl (8.5-10.1); CARBON DIOXIDE 24 mmol/L (21-32); CHLORIDE 102 mmol/L (98-107); CREATININE 1.73 mg/dl (0.60-1.20); GLUCOSE 80 mg/dl (70-99); MAGNESIUM 2.2 mg/dl (1.8-2.4); POTASSIUM 3.8 mmol/L (3.5-5.1); SODIUM 133 mmol/L (136-145)
[2017-04-03] MEDS ORDERED: SENN-61 PO (14:04)
[2017-04-03] MEDS ORDERED: TRAM-10 PO (14:05)
[2017-04-03 14:08] LABS: ISTAT CREATININE 1.8 mg/dl (0.6-1.3); ISTAT HEMOGLOBIN 11.9 g/dl (12.0-16.0); ISTAT IONIZED CALCIUM 1.12 mmol/l (1.12-1.32)
[2017-04-03 14:08] LABS: CKMB/CK RATIO 0.9 (0-3.0)
[2017-04-03] MEDS ORDERED: LEVOFLOXACIN 500 MG TAB PO STA (14:10)
--- NOTE | 2017-04-03 14:27 | DIAGNOSTIC IMAGING REPORT ---
CT OF THE HEAD WITHOUT CONTRAST CLINICAL HISTORY: Stroke. Confusion. COMPARISON STUDY: MRI of the brain February 27, [address] July 15, 2015. CT DOSE: 537.48 mGy.cm TECHNIQUE: Helical axial images of the head were obtained without IV contrast. Automated exposure control was utilized for the study. A dose lowering technique was utilized adhering to the principles of ALARA. FINDINGS: No acute intracranial hemorrhage, midline shift or mass effect is present. Ventricular system is stable. Basilar cisterns are patent. There are no extra axial collections. White matter hypodensity suggests small vessel disease. There are no findings to suggest acute dural sinus thrombosis or acute territorial infarct. There are no significant calvarial abnormalities. Visualized portions of the sinuses and mastoid air cells are clear. IMPRESSION: No acute intracranial findings. Electronically signed by: Jomar Helm M.D. 04/03/2017 2:26 PM Dictated Date/Time: 04/03/2017 2:22 PM
[2017-04-03] MEDS ORDERED: LEVO-366 PO (14:37)
[2017-04-03] MEDS ORDERED: SODIUM CHLORIDE 0.9% 500ML 500 ML IV STA (14:55)
[2017-04-03 15:41] LABS: INFLUENZA A PCR Neg for Influ A (NEG); INFLUENZA B PCR Neg for Influ B (NEG)
[2017-04-03 15:50] VITALS: BP 134/67; PULSE 88; O2SAT 98
== END 2017-04-03 16:01 | disposition home or self-care (01) ==
LOC: EDBD 12:04 → C.EDC 12:05
DX: R41.0 Disorientation, unspecified (principal); J18.9 Pneumonia, unspecified organism; F41.9 Anxiety disorder, unspecified; I11.0 Hypertensive heart disease with heart failure; I50.9 Heart failure, unspecified; K21.9 Gastro-esophageal reflux disease without esophagitis; E03.9 Hypothyroidism, unspecified; Z96.653 Presence of artificial knee joint, bilateral; Z79.82 Long term (current) use of aspirin

== ENCOUNTER 2018-10-15 00:52 | Inpatient (IN) ==
[2018-10-15] MEDS ORDERED: ACETAMINOPHEN 325 MG TAB PO STA (01:16)
[2018-10-15] MEDS ORDERED: SODIUM CHLORIDE 0.9% 500 ML IV ONE ×3 (01:16→02:56)
[2018-10-15 01:52] LABS: Basophils # (auto) 0.02 K/uL (0-0.2); Basophils % (auto) 0.2 %; Eosinophils # (auto) 0.13 K/uL (0-0.5); Eosinophils % (auto) 1.1 %; Hematocrit (blood only) 39.8 % (37-47); Hemoglobin 13.1 g/dL (12.0-16.0); Immature Granulocytes # (auto) 0.04 K/uL (0.00-0.02); Immature Granulocytes % (auto) 0.3 %; Lymphocytes # (auto) 1.14 K/uL (1.2-3.4); Lymphocytes % (auto) 9.3 %; Mean Corpuscular Hgb Conc 32.9 g/dL (32-36); Mean Corpuscular Volume 88.8 fL (80-100); Mean Platelet Volume 11.2 fL (7.4-10.4); Monocytes # (auto) 1.14 K/uL (0.11-0.59); Monocytes % (auto) 9.3 %; Neutrophils # (auto) 9.73 K/uL (1.4-6.5); Neutrophils % (auto) 79.8 %; Platelet Count 227 K/uL (130-400); RDW Coefficient of Variation 13.4 % (11.5-14.5); RDW Standard Deviation 43.7 fL (36.4-46.3); Red Blood Count 4.48 M/uL (4.2-5.4)
[2018-10-15 02:02] LABS: Appearance Urine Cloudy (Clear); Bilirubin Urine Negative (Negative); Blood Urine 2+ (Negative); Color Urine Yellow; Glucose Urine UA Negative (Negative); Ketones Urine Trace (Negative); Leukocyte Esterase Urine 3+ (Negative); Nitrite Urine Negative (Negative); Protein Urine Negative (Negative); Specific Gravity Urine 1.016 (1.000-1.030); Urobilinogen Urine Negative (Negative); WBC Urine Automated >30 /hpf (0-5)
[2018-10-15 02:14] LABS: Bacteria Urine Automated 1+ (Negative)
[2018-10-15 02:15] LABS: Alanine Aminotransferase 15 U/L (12-78); Albumin Level 3.5 gm/dl (3.4-5.0); Aspartate Aminotransferase 14 U/L (15-37); BUN Creatinine Ratio 13.6 (10-20); Blood Urea Nitrogen 25 mg/dl (7-18); Calcium 8.8 mg/dl (8.5-10.1); Carbon Dioxide 24 mmol/L (21-32); Chloride 107 mmol/L (98-107); Est GFR (African American) 31.8; Est GFR (Non-African American) 27.4; Glucose 102 mg/dl (70-99); Potassium 4.3 mmol/L (3.5-5.1); Sodium 138 mmol/L (136-145)
[2018-10-15 02:16] LABS: INR 1.2 (0.9-1.1); Partial Thromboplastin Ratio 1.7
[2018-10-15 02:18] LABS: Albumin Globulin Ratio 0.9 (0.9-2); Alkaline Phosphatase 114 U/L (45-117); Bilirubin,Total 0.4 mg/dl (0.2-1); Total Protein 7.5 gm/dl (6.4-8.2)
[2018-10-15] MEDS ORDERED: DAPTOmycin 500 MG in SYRINGE 0 ML IV STA (02:46)
[2018-10-15] MEDS ORDERED: CEFEPIME 1,000 MG in SYRINGE 0 ML IV STA (03:08)
--- NOTE | 2018-10-15 03:14 | History & Physical Report ---
Date of Service October 15, 2018 Assessment & Plan (1) UTI (urinary tract infection): 73 y/o F hx CKD III, bipolar, hypothyroidism, GERD, moderate , orthostatic hypotension, dementia. The pt presents from her assisted living facility where she was reportedly weak and confused and may have suffered a fall. She is a poor historian and not able to provide additional details preceding transport. On arrival to the ER she was febrile and hypoxic, although she did not complain of SOB. Her daughter states that she has recently complained of dyspnea and was placed on an inhaler. It is suspected that she may have lung disease. Initial labs were notable for mild leukocytosis and a normal lactic. The pt's blood pressure has been low with a systolic pressure in the 80s. However, this may be normal for her per her daughter and she does take midodrine TID. 1) UTI - placed on Cefepime pending culture results. She had also received a dose of Dapto in the ER. 2) Hypoxia - does not c/o SOB - this may be chronic. She is placed on an 02 protocol and will be kept on her inhaler. We do not have any current evidence of a respiratory infection. A CT chest should be considered if her respiratory status worsens and she may need DC with 02. 3) CKD III - renal function stable, IVF provided. 4) Bipolar - cont Depakote, Buspar, bupropion, quetiapine 5) Hypothyroidism - cont Synthroid Full code - Heparin prophylaxis Total tiime for this admit including review of labs, meds, imaging, records - discussion with pt, daughter and ER attending - 40 min Present on Admission?: Yes History of Present Illness Chief Complaint: Fever Primary Care Provider: Brian Jennings 73 y/o F hx CKD III, bipolar, hypothyroidism, GERD, moderate , orthostatic hypotension, dementia. The pt presents from her assisted living facility where she was reportedly weak and confused and may have suffered a fall. She is a poor historian and not able to provide additional details preceding transport. On arrival to the ER she was febrile and hypoxic, although she did not complain of SOB. Her daughter states that she has recently complained of dyspnea and was placed on an inhaler. It is suspected that she may have lung disease. Initial labs were notable for mild leukocytosis and a normal lactic. The pt's blood pressure has been low with a systolic pressure in the 80s. However, this may be normal for her per her daughter and she does take midodrine TID. PMH: 1) Hypothyroidism 2) Orthostatic hypotension - requires Midodrine 3) CKD III - baseline creat 1.8 4) Moderate aortic stenosis 5) Depression/anxiety 6) Dementia 7) Lower extremity edema Surgical: 1) BL TKA 2) L femoral fracture Social: Significant smoking history, quit 10 years ago. Does not drink. Resides in assisted living. Family: Noncontributory Allergies Allergy/AdvReac Type Severity Reaction Status Date / Time pantoprazole Allergy Intermediate RASH Verified 10/15/18 01:58 piperacillin Allergy Intermediate RASH Verified 10/15/18 01:58 tazobactam Allergy Intermediate RASH Verified 10/15/18 01:58 morphine AdvReac Severe bp Verified 10/15/18 01:58 plummeted,CONFUSION Home Medications Home Medications Medication Instructions Recorded Confirmed Type Albuterol Nebulizer 1 vial INHALATION Q6H PRN 09/03/18 10/15/18 History acetaminophen 650 mg PO Q6H PRN 09/03/18 10/15/18 History alprazolam 0.25 mg PO HS 09/03/18 10/15/18 History aspirin 81 mg PO DAILY 09/03/18 10/15/18 History bacillus coagulans-inulin 1 cap PO DAILY 09/03/18 10/15/18 History [Probiotic Formula (inulin)] bupropion HCl 150 mg PO BID 09/03/18 10/15/18 History buspirone 15 mg PO BID 09/03/18 10/15/18 History cholecalciferol (vitamin D3) 2,000 unit PO DAILY 09/03/18 10/15/18 History [Vitamin D3] divalproex 500 mg PO BID 09/03/18 10/15/18 History docusate sodium [DOK] 100 mg PO BID 09/03/18 10/15/18 History furosemide [Lasix] 20 mg PO DAILY 09/03/18 10/15/18 History levothyroxine 150 mcg PO DAILY 09/03/18 10/15/18 History midodrine 10 mg PO TID 09/03/18 10/15/18 History multivitamin 1 tab PO DAILY 09/03/18 10/15/18 History omeprazole 40 mg PO DAILY 09/03/18 10/15/18 History potassium chloride 10 meq PO DAILY 09/03/18 10/15/18 History pramipexole 0.25 mg PO BID 09/03/18 10/15/18 History quetiapine 200 mg PO BID 09/03/18 10/15/18 History sennosides-docusate sodium 1 tab PO DAILY 09/03/18 10/15/18 History [Senna-Time S] tramadol 50 mg PO Q6H PRN 09/03/18 10/15/18 History ondansetron HCl [Zofran] 4 mg PO Q8H PRN 10/15/18 10/15/18 History Past Med/Surg History Social History marital status: / Current Living Situation: Personal Care Facility current occupational status: retired Feels Safe at Home: Yes Smoking Status: Former smoker Review of Systems Review of Systems: I cannot obtain a reliable history from the pt as she denies all symptoms. Physical Exam Physical Exam: General: Very thin, elderly F, AAO x 1.5, no distress ENT: No erythema or exudates, no thrush Eyes: RAY, EOMI Head and neck: Normocephalic, atraumatic, No JVD, neck is supple. Chest/heart: Nontender, S1,2, RRR, + 3/6 systolic murmur, no gallops Lungs: CTAB, no wheezing or crackles Abdomen: Nontender, nondistended, BS+ Neuro: AAO x 3, speech is clear, no unilateral weakness or loss of sensation, coordination intact Musculoskeletal: No joint inflammation, muscle tenderness, FROM Skin: No acute rashes or ulcers Extremities: No clubbing, cyanosis, edema Results & Data Vital Signs (Past 12 Hours) Vital Signs Temp Pulse Resp BP Pulse Ox 10/15/18 02:45 86 25 H 82/53 L 93 10/15/18 02:36 88 25 H 88/55 L 94 10/15/18 02:30 85 26 H 71/48 L 92 10/15/18 02:16 88 21 72/53 L 91 10/15/18 02:11 90 33 H 89/56 L 93 10/15/18 02:01 88 33 H 76/52 L 95 10/15/18 02:00 90 33 H 95 10/15/18 01:45 102 H 24 90 10/15/18 01:30 98 H 31 H 111/71 95 10/15/18 01:15 99 H 29 H 93 10/15/18 01:06 80 L 10/15/18 01:05 100.6 F H 105 H 12 130/73 80 L PG Care Time/CCT Total # of Minutes Spent Total Time Spent with Patient: Total time spent is greater than 50% in coordination of care (as documented) at patient's floor/unit and/or counseling patient:
[2018-10-15] MEDS ORDERED: ONDANSETRON INJ 2 MG/ML 2 ML VIAL IV PRN (04:58)
[2018-10-15] MEDS ORDERED: ALBUTEROL 0.083% NEBU SOLN 3 ML VIAL INH PRN (04:58)
[2018-10-15] MEDS ORDERED: MAGNESIUM HYDROXIDE SUSP 30 ML UDC PO PRN (04:58)
[2018-10-15] MEDS ORDERED: TRAMADOL HCL 50 MG TABLET PO PRN (04:58)
[2018-10-15] MEDS ORDERED: POLYETHYLENE (MIRALAX) 17 GM PACK PO PRN (04:58)
[2018-10-15] MEDS ORDERED: ZOLPIDEM TARTRATE 5 MG TAB PO PRN (04:58)
[2018-10-15] MEDS ORDERED: ACETAMINOPHEN 325 MG TAB PO PRN (04:58)
[2018-10-15] MEDS ORDERED: ALUMINUM/MAGNESIUM SUSP 30 ML UDC PO PRN (04:58)
[2018-10-15] MEDS ORDERED: NON-FORMULARY MEDICATION (Acetaminophen 650 MG) PO PRN (04:58)
[2018-10-15] MEDS: SODIUM CHLORIDE 0.9% 1000ML 1,000 ML IV SCH ×2 (05:05→14:38)
--- NOTE | 2018-10-15 07:58 | XRay Report ---
XR chest 1V portable CLINICAL HISTORY: Sepsis COMPARISON STUDY: Chest radiograph April 03, 2017. FINDINGS: Patient is rotated. Incidental note is made of cholecystectomy clips. There is no pneumotho rax or pleural effusion. There is no consolidation or evidence for pulmonary edema. Cardiomediastinal silhouette is stable. IMPRESSION: No acute cardiopulmonary findings. Electronically signed by: Jomar Helm M.D. 10/15/2018 7:56 AM
[2018-10-15] MEDS: BUSPIRONE HCL 7.5 MG TAB PO SCH ×2 (08:21→20:16)
[2018-10-15] MEDS: DOCUSATE SODIUM/SENNA 50/8.6MG TAB PO SCH (08:21)
[2018-10-15] MEDS: DIVALPROEX DELAY RELEASE 500 MG TAB PO SCH ×2 (08:21→20:17)
[2018-10-15] MEDS: DOCUSATE SODIUM 100 MG CAP PO SCH ×2 (08:21→20:17)
[2018-10-15] MEDS: BuPROPion SR 150 MG TABCR PO SCH ×2 (08:21→20:19)
[2018-10-15] MEDS: HEPARIN SOD 5,000 UNIT/0.5 ML VIAL SQ SCH ×2 (08:21→20:16)
[2018-10-15] MEDS: ASPIRIN 81 MG ECTAB PO SCH (08:22)
[2018-10-15] MEDS: MIDODRINE HCL 10 MG TAB PO SCH ×3 (08:22→20:18)
[2018-10-15] MEDS: QUETIAPINE FUMARATE 200 MG TAB PO SCH ×2 (08:22→20:19)
[2018-10-15] MEDS: PRAMIPEXOLE DIHYDROCHLO 0.25 MG TAB PO SCH ×2 (08:22→20:18)
[2018-10-15] MEDS: LEVOTHYROXINE SODIUM 150 MCG TABLET PO SCH (08:22)
[2018-10-15] MEDS: OMEPRAZOLE 20 MG CAPCR PO SCH (08:23)
[2018-10-15 08:46] LABS: HCO3 ABG 19 mmol/L (19-24); PCO2 ABG 30 mmHg (35-46); PO2 ABG 59 mm/Hg (80-95); pH ABG 7.43 (7.35-7.45)
[2018-10-15 08:50] LABS: Allen Test Pos (Pos)
--- NOTE | 2018-10-15 14:01 | CT Scan Report ---
CT OF THE CHEST WITHOUT IV CONTRAST CLINICAL HISTORY: Hypoxia. Sepsis. COMPARISON STUDY: Chest radiograph April 03, 2017 and October 15, 2018. CT DOSE: 248.12 mGy.cm TECHNIQUE: Axial images of the chest were obtained without IV contrast. Images were reviewed in the axial, sagittal, and coronal planes. IV contrast was not administered for this examination. Automat ed exposure control was utilized for the study. A dose lowering technique was utilized adhering to t he principles of ALARA. FINDINGS: Exam is mildly compromised by motion artifact although is diagnostic. No enlarged thoracic lymph nodes are present. Size of the heart is normal. There is no pericardial effusion. Note is made of a trace left pleural effusion. Moderate left lower lobe consolidation is noted. No central obstru cting mass is noted. There are scattered airspace opacities throughout the remainder of the lungs. Th ere is no pneumothorax. There is no cavitation. Old sternal and rib fractures are noted. There may be fatty atrophy of the pancreas, partially imaged on this exam. IMPRESSION: 1. Moderate left lower lobe consolidation suggestive of pneumonia. Additional scattered airspace opac ities throughout the lungs also favor an infectious etiology. No central obstructing mass. A follow-u p chest CT in 3 months to ensure resolution is recommended. 2. Trace left pleural effusion. Electronically signed by: Jomar Helm M.D. 10/15/2018 1:59 PM
[2018-10-15] MEDS ORDERED: VANCOMYCIN CONSULT ACTIVE PRN (14:10)
[2018-10-15] MEDS ORDERED: methylPREDNISolone 125 MG/2 ML VIAL IV STA (14:40)
[2018-10-15] MEDS ORDERED: VANCOMYCIN HCL 1,000 MG in SODIUM CHLORIDE 0.9% 250 ML IV STA (14:44)
--- NOTE | 2018-10-15 14:44 | History & Physical Bridge Note ---
Date of Service October 15, 2018 History & Physical Bridge Note I have examined the patient, reviewed the History & Physical and in the interval since the performance of the History & Physical I have noted the following changes of clinical significance: Patient with worsening hypoxia through the day, minimal cough, denies chest pain. Blood pressures have been quite low, however her daughter who is a nurse reports that the blood pressure in the 80s is fairly normal for her. An ABG was consistent with hypoxemia and hyperventilation A chest CT was ordered which showed a moderate-sized left lower lobe infiltrate along with some other patchy bilateral infiltrates consistent with pneumonia Her MRSA swab was positive. Lactate remains negative Procalcitonin was mildly elevated at 0.54, WBC count remained elevated, creatinine improved from 1.8-1.4 and repeat labs this afternoon. Vitals reviewed Patient appears thin but in no acute respiratory distress. She is fatigued but does wake up and answer questions. She is pleasantly confused. She does know she is at [facility] and knows her name, but does not know the year or month. Nurse reports that she had one episode of urinary incontinence today but that the only urination that she has had all day despite receiving copious IV fluids Anicteric sclerae, oropharynx appears mildly dry CV: Tachycardic, regular rhythm, 3/6 systolic murmur at the right upper sternal border Lungs with bilateral crackles in the left lower and middle lung torres as well as right lower lung field Abdomen positive bowel sounds, soft, nontender nondistended, golf ball sized ventral hernia to the right and superior of the umbilicus that was difficult to fully reduce but was nontender Extremities no edema, not mottled, 1+ dorsalis pedis pulses 73-year-old female with a history of moderate to severe dementia, hypothyroidism, orthostasis, CKD stage III, moderate aortic stenosis, depression/anxiety, here with sepsis along with pneumonia and UTI. Considering her low blood pressures, would consider her to have severe sepsis, however her lactate is normal. Cortisol random level is normal, however patient is a long history of smoking and may have some component of a COPD exacerbation contributing to her hypoxia -We will add on vancomycin to cover for MRSA as well as doxycycline to cover for atypical organisms in the lungs, continue cefepime for gram-negative coverage for pneumonia considering that she lives in a nursing facility -Continue IV fluids -Add on [id number] duo nebs and IV steroids Continue to follow DNR/DNI as discussed with the patient's daughter who is her healthcare decision- maker. The patient was actually enrolled in hospice fairly recently as an outpatient for her diagnosis of failure to thrive she has lost 30 pounds in the last several months. The daughter does state that she is okay with the patient receiving antibiotics and vasopressors if needed with transfer to the ICU. -
[2018-10-15] MEDS: DOXYCYCLINE HYCLATE 100 MG in DEXTROSE 5% 100 ML IV SCH ×2 (14:47→20:19)
[2018-10-15 15:13] LABS: Basophils # (auto) 0.02 K/uL (0-0.2); Basophils % (auto) 0.2 %; Eosinophils # (auto) 0.04 K/uL (0-0.5); Eosinophils % (auto) 0.3 %; Hematocrit (blood only) 36.6 % (37-47); Hemoglobin 11.8 g/dL (12.0-16.0); Immature Granulocytes # (auto) 0.03 K/uL (0.00-0.02); Immature Granulocytes % (auto) 0.2 %; Lymphocytes # (auto) 1.32 K/uL (1.2-3.4); Lymphocytes % (auto) 10.5 %; Mean Corpuscular Hgb Conc 32.2 g/dL (32-36); Mean Corpuscular Volume 89.9 fL (80-100); Mean Platelet Volume 10.7 fL (7.4-10.4); Monocytes # (auto) 1.09 K/uL (0.11-0.59); Monocytes % (auto) 8.6 %; Neutrophils # (auto) 10.12 K/uL (1.4-6.5); Neutrophils % (auto) 80.2 %; Platelet Count 174 K/uL (130-400); RDW Coefficient of Variation 13.6 % (11.5-14.5); RDW Standard Deviation 44.4 fL (36.4-46.3); Red Blood Count 4.07 M/uL (4.2-5.4); White Blood Count 12.62 K/uL (4.8-10.8)
[2018-10-15] MEDS: ALBUT/IPRATROP 3MG/0.5MG NEB 3 ML VIAL NEB SCH ×2 (15:28→19:17)
[2018-10-15 15:30] LABS: BUN Creatinine Ratio 14.7 (10-20); Calcium 7.9 mg/dl (8.5-10.1); Creatinine Clr Calc Pharmacy 24.8 ml/min; Est GFR (African American) 40.9; Est GFR (Non-African American) 35.3
[2018-10-15] MEDS ORDERED: methylPREDNISolone 125 MG in SYRINGE 0 ML IV ONE (17:45)
[2018-10-15] MEDS: CEFEPIME 1,000 MG in SYRINGE 0 ML IV SCH (20:17)
[2018-10-15] MEDS: methylPREDNISolone 60 MG in SYRINGE 0 ML IV SCH (20:19)
[2018-10-15] MEDS: ALPRAZolam 0.25 MG TABLET PO SCH (20:21)
[2018-10-15] MEDS ORDERED: ALPRAZolam 0.25 MG TABLET PO SCH (21:00)
[2018-10-16] MEDS: SODIUM CHLORIDE 0.9% 1000ML 1,000 ML IV SCH ×2 (00:49→15:29)
[2018-10-16] MEDS: LEVOTHYROXINE SODIUM 150 MCG TABLET PO SCH (06:26)
[2018-10-16 06:40] LABS: Basophils # (auto) 0.01 K/uL (0-0.2); Basophils % (auto) 0.1 %; Hematocrit (blood only) 38.8 % (37-47); Hemoglobin 12.5 g/dL (12.0-16.0); Immature Granulocytes # (auto) 0.03 K/uL (0.00-0.02); Immature Granulocytes % (auto) 0.3 %; Lymphocytes # (auto) 0.51 K/uL (1.2-3.4); Lymphocytes % (auto) 5.1 %; Mean Corpuscular Hgb Conc 32.2 g/dL (32-36); Mean Corpuscular Volume 90.4 fL (80-100); Mean Platelet Volume 11.5 fL (7.4-10.4); Monocytes # (auto) 0.34 K/uL (0.11-0.59); Monocytes % (auto) 3.4 %; Neutrophils # (auto) 9.03 K/uL (1.4-6.5); Neutrophils % (auto) 91.1 %; Platelet Count 185 K/uL (130-400); RDW Coefficient of Variation 13.5 % (11.5-14.5); RDW Standard Deviation 44.4 fL (36.4-46.3); Red Blood Count 4.29 M/uL (4.2-5.4); White Blood Count 9.92 K/uL (4.8-10.8)
--- NOTE | 2018-10-16 06:42 | Emergency Department Note ---
Entered by Nora Christianson acting as a scribe for History of Present Illness General Chief complaint: Fall Time Seen by Provider: 10/15/18 01:02 Source: patient and other (nursing staff) Limitations: altered mental status History of Present Illness Onset (ago): minute(s) (prior to arrival) Location: head Pain Consistency: + other (episode) Maximum Pain Intensity: 3 Quality: + other (fall) Associated symptoms: + headaches and + other (dizziness) The patient is a 73 year old female who presents to the ED with complaints of an episode of a fall occurring prior to arrival. Per nursing staff, the patient lives at [facility] and has confusion at baseline. They report that all day today she was having dizzy spells and told staff at [facility] about them. They state that this evening she was getting into bed with her walker and fell backwards. They report that staff and the patient deny the patient hitting her head in the fall. The patient states that she was dizzy right before she fell. The patient complains of a headache. The patient has a fever. HPI and ROS are limited secondary to mental status. Home Medications Home Medications Medication Instructions Recorded Confirmed Type Albuterol Nebulizer 1 vial INHALATION Q6H PRN 09/03/18 10/15/18 History acetaminophen 650 mg PO Q6H PRN 09/03/18 10/15/18 History alprazolam 0.25 mg PO HS 09/03/18 10/15/18 History aspirin 81 mg PO DAILY 09/03/18 10/15/18 History bacillus coagulans-inulin 1 cap PO DAILY 09/03/18 10/15/18 History [Probiotic Formula (inulin)] bupropion HCl 150 mg PO BID 09/03/18 10/15/18 History buspirone 15 mg PO BID 09/03/18 10/15/18 History cholecalciferol (vitamin D3) 2,000 unit PO DAILY 09/03/18 10/15/18 History [Vitamin D3] divalproex 500 mg PO BID 09/03/18 10/15/18 History docusate sodium [DOK] 100 mg PO BID 09/03/18 10/15/18 History furosemide [Lasix] 20 mg PO DAILY 09/03/18 10/15/18 History levothyroxine 150 mcg PO DAILY 09/03/18 10/15/18 History midodrine 10 mg PO TID 09/03/18 10/15/18 History multivitamin 1 tab PO DAILY 09/03/18 10/15/18 History omeprazole 40 mg PO DAILY 09/03/18 10/15/18 History potassium chloride 10 meq PO DAILY 09/03/18 10/15/18 History pramipexole 0.25 mg PO BID 09/03/18 10/15/18 History quetiapine 200 mg PO BID 09/03/18 10/15/18 History sennosides-docusate sodium 1 tab PO DAILY 09/03/18 10/15/18 History [Senna-Time S] tramadol 50 mg PO Q6H PRN 09/03/18 10/15/18 History ondansetron HCl [Zofran] 4 mg PO Q8H PRN 10/15/18 10/15/18 History Allergies Allergy/AdvReac Type Severity Reaction Status Date / Time pantoprazole Allergy Intermediate RASH Verified 10/15/18 01:58 piperacillin Allergy Intermediate RASH Verified 10/15/18 01:58 tazobactam Allergy Intermediate RASH Verified 10/15/18 01:58 morphine AdvReac Intermediate bp Verified 10/15/18 07:10 plummeted,CONFUSION Past Med/Surg History Social History Preferred Language: Divehi Communication Ability: Effective Band Splicer Required: No Beliefs That Will Affect Care: None marital status: / Current Living Situation: Personal Care Facility current occupational status: retired Other Information That Helps Us Care for You: No Feels Safe at Home: Yes Safety Concerns: Feels Safe At This Time Smoking Status: Former smoker Tobacco Cessation Education Requested by Patient: No Hx Alcohol Use: No Hx Substance Use: No Review of Systems HPI and ROS are limited secondary to mental status. Physical Exam Vital Signs Vital Signs - 24 hr 10/15/18 01:05 10/15/18 01:06 10/15/18 01:15 Temperature 38.1 C H Temperature Source Rectal Rectal Temperature - Source 2 Sepsis Recent Fever Within 48 Hours Yes Sepsis New/Unexplained Change in Mental Status No Sepsis Action Taken by Nursing No Action Required Pulse Rate 105 H 99 H Pulse Rate from SpO2 Sensor 97 H Respiratory Rate 12 29 H Respiratory Effort / Characteristics Non-Labored Spontaneous Respiratory Depth Normal Blood Pressure 130/73 Blood Pressure Mean 92 Pulse Oximetry 80 L 80 L 93 Oxygen Delivery Method Room Air Nasal Cannula Nasal Cannula Oxygen Flow Rate 0 4 10/15/18 01:25 10/15/18 01:30 10/15/18 01:45 Temperature Temperature Source Rectal Temperature - Source 2 Sepsis Recent Fever Within 48 Hours Sepsis New/Unexplained Change in Mental Status Sepsis Action Taken by Nursing Pulse Rate 98 H 102 H Pulse Rate from SpO2 Sensor 98 H 102 H Respiratory Rate 31 H 24 Respiratory Effort / Characteristics Respiratory Depth Blood Pressure 111/71 Blood Pressure Mean 84 Pulse Oximetry 95 90 Oxygen Delivery Method Nasal Cannula Nasal Cannula Nasal Cannula Oxygen Flow Rate 4 4 4 10/15/18 02:00 10/15/18 02:01 10/15/18 02:11 Temperature Temperature Source Rectal Temperature - Source 2 Sepsis Recent Fever Within 48 Hours Sepsis New/Unexplained Change in Mental Status Sepsis Action Taken by Nursing Pulse Rate 90 88 90 Pulse Rate from SpO2 Sensor 89 88 90 Respiratory Rate 33 H 33 H 33 H Respiratory Effort / Characteristics Respiratory Depth Blood Pressure 76/52 L 89/56 L Blood Pressure Mean 60 67 Pulse Oximetry 95 95 93 Oxygen Delivery Method Nasal Cannula Nasal Cannula Nasal Cannula Oxygen Flow Rate 4 4 4 10/15/18 02:16 10/15/18 02:30 10/15/18 02:36 Temperature Temperature Source Rectal Temperature - Source 2 Sepsis Recent Fever Within 48 Hours Sepsis New/Unexplained Change in Mental Status Sepsis Action Taken by Nursing Pulse Rate 88 85 88 Pulse Rate from SpO2 Sensor 86 85 Respiratory Rate 21 26 H 25 H Respiratory Effort / Characteristics Respiratory Depth Blood Pressure 72/53 L 71/48 L 88/55 L Blood Pressure Mean 59 55 66 Pulse Oximetry 91 92 94 Oxygen Delivery Method Nasal Cannula Nasal Cannula Nasal Cannula Oxygen Flow Rate 4 4 4 10/15/18 02:45 10/15/18 03:00 10/15/18 03:15 Temperature Temperature Source Rectal Temperature - Source 2 37.6 C H Sepsis Recent Fever Within 48 Hours Sepsis New/Unexplained Change in Mental Status Sepsis Action Taken by Nursing Pulse Rate 86 85 86 Pulse Rate from SpO2 Sensor 83 86 Respiratory Rate 25 H 19 28 H Respiratory Effort / Characteristics Respiratory Depth Blood Pressure 82/53 L 81/52 L 89/53 L Blood Pressure Mean 62 61 65 Pulse Oximetry 93 91 93 Oxygen Delivery Method Nasal Cannula Nasal Cannula Nasal Cannula Oxygen Flow Rate 4 4 4 10/15/18 03:30 Temperature Temperature Source Rectal Temperature - Source 2 Sepsis Recent Fever Within 48 Hours Sepsis New/Unexplained Change in Mental Status Sepsis Action Taken by Nursing Pulse Rate 84 Pulse Rate from SpO2 Sensor 88 Respiratory Rate 26 H Respiratory Effort / Characteristics Respiratory Depth Blood Pressure 93/56 L Blood Pressure Mean 68 Pulse Oximetry 90 Oxygen Delivery Method Nasal Cannula Oxygen Flow Rate 4 HEENT: Head - normocephalic and atraumatic Pupils are equal, round, and reactive to light. Extraocular eye muscles are intact, and sclera are anicteric. Nose - moist nasal mucosa without discharge. Mouth - moist buccal mucosa. Oropharynx is nonerythematous and there is no tonsillar exudate or edema noted. Neck: Supple; no JVD, nuchal rigidity, cervical lymphadenopathy. Heart: Tachycardic rate and regular rhythm. There is a normal S1 and S2 with no murmurs, clicks, or gallops appreciated. Lungs: Clear to auscultation bilaterally with no wheezes, rales, or rhonchi. Abdomen: Soft, completely nontender, nondistended, with good bowel sounds. There are no palpable pulsatile masses or hepatosplenomegaly. There is no guarding, rigidity, or rebound noted. Extremities: No evidence of cyanosis, clubbing, or edema. There are easily palpa ble peripheral pulses. Skin: hot and dry with good turgor and no rashes. Course 0112: Past medical records reviewed. The patient was evaluated in room B4B. A complete history and physical exam was performed. An IV lock was initiated and labs were drawn as above. A twelve-lead EKG was obtained. 0116: Ordered Tylenol 650 mg PO, NSS 500 mls @ 999 mls/hr IV. 0220: The patient's blood pressure remained low. I ordered NSS 500 mls @ 999 mls/hr IV. 0246: Ordered Cubicin 500 mg IV. The patient seems to have a urinary tract infection. In reviewing her medications and past medical history, it seems that she has chronic low blood pressure. 0248: I reevaluated the patient as nursing staff called and said her blood pressure was dropping. I updated her on her test results and the treatment plan. She verbally agrees and understands. 0256: Ordered NSS 500 mls @ 999 mls/hr IV. 0259: I discussed the patient's case with Dr. Calderon Hospitalist. He will evaluate the patient for further management. 0308: Ordered Maxipime 1000 mg IV. Consultations Consultation #1: I discussed the patient's case with Dr. Calderon Hospitalist. He will evaluate the patient for further management. Time: 02:59 Administered Medications Acetaminophen (Tylenol) 650 mg PO Q4H PRN PRN Reason: Pain or Fever Stop: 11/14/18 04:57 Last Admin: 10/15/18 11:46 Dose: 650 mg Documented by: [id number] Albuterol (Duoneb) 3 ml NEB QIDR NEERU Stop: 11/14/18 14:44 Last Admin: 10/15/18 19:17 Dose: 3 ml Documented by: [id number] Admin: 10/15/18 15:28 Dose: 3 ml Documented by: [id number] Alprazolam (Xanax) 0.25 mg PO HS NEERU Stop: 11/14/18 20:59 Last Admin: 10/15/18 20:21 Dose: 0.25 mg Documented by: [id number] Aspirin (Ecotrin Ectab) 81 mg PO DAILY NEERU Stop: 11/14/18 08:59 Last Admin: 10/15/18 08:22 Dose: 81 mg Documented by: [id number] Bupropion HCl (Wellbutrin-Sr) 150 mg PO BID [facility] Stop: 11/14/18 08:59 Last Admin: 10/15/18 20:19 Dose: 150 mg Documented by: [id number] Admin: 10/15/18 08:21 Dose: 150 mg Documented by: [id number] Buspirone HCl (Buspar) 15 mg PO BID NEERU Stop: 11/14/18 08:59 Last Admin: 10/15/18 20:16 Dose: 15 mg Documented by: [id number] Admin: 10/15/18 08:21 Dose: 15 mg Documented by: [id number] Divalproex Sodium (Depakote Delay Release) 500 mg PO BID [facility] Stop: 11/14/18 08:59 Last Admin: 10/15/18 20:17 Dose: 500 mg Documented by: [id number] Admin: 10/15/18 08:21 Dose: 500 mg Documented by: [id number] Docusate Sodium (Colace) 100 mg PO BID NEERU Stop: 11/14/18 08:59 Last Admin: 10/15/18 20:17 Dose: 100 mg Documented by: [id number] Admin: 10/15/18 08:21 Dose: 100 mg Documented by: [id number] Heparin Sodium (Porcine) (Heparin Sodium (Porcine)) 5,000 units SQ Q12 NEERU Stop: 11/14/18 08:59 Last Admin: 10/15/18 20:16 Dose: 5,000 units Documented by: [id number] Cosigned by: [id number] Admin: 10/15/18 08:21 Dose: 5,000 units Documented by: [id number] Cosigned by: [id number] Cefepime HCl 1,000 mg/ Syringe 11.3 mls @ 5.5 mls/min IV Q24H NEERU; Protocol Stop: 10/25/18 20:59 Last Admin: 10/15/18 20:17 Dose: 5.5 mls/min Documented by: [id number] Sodium Chloride (Nss 1000ml) 1,000 mls @ 100 mls/hr IV .Q10H NEERU Stop: 11/14/18 04:57 Last Admin: 10/16/18 00:49 Dose: 100 mls/hr Documented by: [id number] Infusion: 10/16/18 00:49 Dose: 0 mls/hr Documented by: [id number] Admin: 10/15/18 14:38 Dose: 100 mls/hr Documented by: [id number] Infusion: 10/15/18 14:38 Dose: 100 mls/hr Documented by: [id number] Admin: 10/15/18 05:05 Dose: 100 mls/hr Documented by: [id number] Doxycycline Hyclate 100 mg/ (Dextrose) 110 mls @ 50 mls/hr IV Q12 NEERU Stop: 10/22/18 14:29 Last Infusion: 10/15/18 22:41 Dose: 0 mls/hr Documented by: [id number] Admin: 10/15/18 20:19 Dose: 50 mls/hr Documented by: [id number] Infusion: 10/15/18 16:59 Dose: 0 mls/hr Documented by: [id number] Admin: 10/15/18 14:47 Dose: 50 mls/hr Documented by: [id number] Methylprednisolone 60 mg/ (Syringe) 0.96 mls @ 1.5 mls/min IV Q12 NEERU Stop: 11/14/18 20:59 Last Admin: 10/15/18 20:19 Dose: 1.5 mls/min Documented by: [id number] Levothyroxine Sodium (Synthroid) 150 mcg PO DAILYBB [facility] Stop: 11/14/18 07:29 Last Admin: 10/16/18 06:26 Dose: 150 mcg Documented by: [id number] Admin: 10/15/18 08:22 Dose: 150 mcg Documented by: [id number] Midodrine (Proamatine) 10 mg PO TID NEERU Stop: 11/14/18 08:59 Last Admin: 10/15/18 20:18 Dose: 10 mg Documented by: [id number] Admin: 10/15/18 14:40 Dose: 10 mg Documented by: [id number] Admin: 10/15/18 08:22 Dose: 10 mg Documented by: [id number] Omeprazole (Prilosec) 40 mg PO DAILY [facility]ERU Stop: 11/14/18 08:59 Last Admin: 10/15/18 08:23 Dose: 40 mg Documented by: [id number] Pramipexole Dihydrochloride (Mirapex) 0.25 mg PO BID [facility]ERU Stop: 11/14/18 08:59 Last Admin: 10/15/18 20:18 Dose: 0.25 mg Documented by: [id number] Admin: 10/15/18 08:22 Dose: 0.25 mg Documented by: [id number] Quetiapine Fumarate (Seroquel) 200 mg PO BID [facility] Stop: 11/14/18 08:59 Last Admin: 10/15/18 20:19 Dose: 200 mg Documented by: [id number] Admin: 10/15/18 08:22 Dose: 200 mg Documented by: [id number] Senna/Docusate Sodium (Senokot S) 1 tab PO DAILY [facility]ERU Stop: 11/14/18 08:59 Last Admin: 10/15/18 08:21 Dose: 1 tab Documented by: [id number] Discontinued Medications Acetaminophen (Tylenol) 650 mg PO NOW STA Stop: 10/15/18 01:17 Last Admin: 10/15/18 01:37 Dose: 650 mg Documented by: [id number] Sodium Chloride (Nss) 500 mls @ 999 mls/hr IV .Q31M ONE Stop: 10/15/18 01:46 Last Infusion: 10/15/18 02:09 Dose: 0 mls/hr Documented by: [id number] Admin: 10/15/18 01:37 Dose: 999 mls/hr Documented by: [id number] Sodium Chloride (Nss) 500 mls @ 999 mls/hr IV .Q31M ONE Stop: 10/15/18 02:50 Last Infusion: 10/15/18 02:37 Dose: 0 mls/hr Documented by: [id number] Admin: 10/15/18 02:21 Dose: 999 mls/hr Documented by: [id number] Daptomycin 500 mg/ Syringe 10 mls @ 5 mls/min IV NOW STA; Protocol Stop: 10/15/18 02:47 Last Admin: 10/15/18 03:16 Dose: 5 mls/min Documented by: [id number] Sodium Chloride (Nss) 500 mls @ 999 mls/hr IV .Q31M ONE Stop: 10/15/18 03:26 Last Infusion: 10/15/18 03:52 Dose: 0 mls/hr Documented by: [id number] Admin: 10/15/18 03:13 Dose: 999 mls/hr Documented by: [id number] Cefepime HCl 1,000 mg/ Syringe 11.3 mls @ 5.5 mls/min IV NOW STA; Protocol Stop: 10/15/18 03:10 Last Admin: 10/15/18 03:47 Dose: 5.5 mls/min Documented by: [id number] Vancomycin HCl 1,000 mg/ (Sodium Chloride) 270 mls @ 125 mls/hr IV NOW STA; Protocol Stop: 10/15/18 16:53 Last Infusion: 10/15/18 19:50 Dose: 0 mls/hr Documented by: [id number] Admin: 10/15/18 17:22 Dose: 125 mls/hr Documented by: [id number] Methylprednisolone 125 mg/ (Syringe) 2 mls @ 1.5 mls/min IV NOW ONE Stop: 10/15/18 17:46 Last Admin: 10/15/18 17:43 Dose: Not Given Documented by: [id number] Methylprednisolone (Solumedrol) 125 mg IV NOW STA Stop: 10/15/18 14:41 Last Admin: 10/15/18 17:42 Dose: 125 mg Documented by: [id number] Medical Decision Making Differential Diagnosis Differential diagnoses include closed head injury, c-spine injury, dehydration, renal failure, sepsis, pneumonia, UTI. Medical Records Attestation: I reviewed the patient's medical records. Home Medications Current Medication List: was personally reviewed by me Laboratory Data Attestation: I reviewed the patient's lab results. Result diagrams: 10/15/18 15:03 10/15/18 15:03 Lab Results 10/15/18 10/15/18 10/15/18 Range/Units 01:15 01:31 01:31 WBC 12.20 H (4.8-10.8) K/uL RBC 4.48 (4.2-5.4) M/uL Hgb 13.1 (12.0-16.0) g/dL Hct 39.8 (37-47) % MCV 88.8 (80-100) fL MCH 29.2 (25-34) pg MCHC 32.9 (32-36) g/dL RDW Std Deviation 43.7 (36.4-46.3) fL RDW Coeff of Jenifer 13.4 (11.5-14.5) % Plt Count 227 (130-400) K/uL MPV 11.2 H (7.4-10.4) fL Immature Gran % (Auto) 0.3 % Neut % (Auto) 79.8 % Lymph % (Auto) 9.3 % [place] % (Auto) 9.3 % Eos % (Auto) 1.1 % Baso % (Auto) 0.2 % Immature Gran # (Auto) 0.04 H (0.00-0.02) K/uL Neut # (Auto) 9.73 H (1.4-6.5) K/uL Lymph # (Auto) 1.14 L (1.2-3.4) K/uL [place] # (Auto) 1.14 H (0.11-0.59) K/uL Eos # (Auto) 0.13 (0-0.5) K/uL Baso # (Auto) 0.02 (0-0.2) K/uL PT 12.0 (9.0-12.0) Seconds INR 1.2 H (0.9-1.1) APTT 45.0 H (21.0-31.0) Seconds PTT Ratio 1.7 Sodium (136-145) mmol/L Potassium (3.5-5.1) mmol/L Chloride (98-107) mmol/L Carbon Dioxide (21-32) mmol/L Anion Gap (3-11) BUN (7-18) mg/dl Creatinine (0.6-1.2) mg/dl Est Cr Clr Drug Dosing Est GFR ( Amer) Est GFR (Non-Af Amer) BUN/Creatinine Ratio (10-20) Glucose (70-99) mg/dl Lactate (0.4-2.0) mmol/L Calcium (8.5-10.1) mg/dl Total Bilirubin (0.2-1) mg/dl AST (15-37) U/L ALT (12-78) U/L Alkaline Phosphatase (45-117) U/L Total Protein (6.4-8.2) gm/dl Albumin (3.4-5.0) gm/dl Globulin (2.5-4.0) gm/dl Albumin/Globulin Ratio (0.9-2) Urine Color Yellow Urine Appearance Cloudy A (Clear) Urine pH 5.0 (4.5-7.5) Ur Specific [place] 1.016 (1.000-1.030) Urine Protein Negative (Negative) Urine Glucose (UA) Negative (Negative) Urine Ketones Trace H (Negative) Urine Blood 2+ H (Negative) Urine Nitrite Negative (Negative) Urine Bilirubin Negative (Negative) Urine Urobilinogen Negative (Negative) Ur Leukocyte Esterase 3+ H (Negative) Urine WBC (Auto) >30 H (0-5) /hpf Urine RBC (Auto) 5-10 H (0-4) /hpf U Hyaline Cast (Auto) 1-5 (0-5) /lpf U Epithel Cells (Auto) 10-20 H (0-5) /lpf Urine Bacteria (Auto) 1+ H (Negative) 10/15/18 10/15/18 Range/Units 01:31 01:50 WBC (4.8-10.8) K/uL RBC (4.2-5.4) M/uL Hgb (12.0-16.0) g/dL Hct (37-47) % MCV (80-100) fL MCH (25-34) pg MCHC (32-36) g/dL RDW Std Deviation (36.4-46.3) fL RDW Coeff of Jenifer (11.5-14.5) % Plt Count (130-400) K/uL MPV (7.4-10.4) fL Immature Gran % (Auto) % Neut % (Auto) % Lymph % (Auto) % [place] % (Auto) % Eos % (Auto) % Baso % (Auto) % Immature Gran # (Auto) (0.00-0.02) K/uL Neut # (Auto) (1.4-6.5) K/uL Lymph # (Auto) (1.2-3.4) K/uL [place] # (Auto) (0.11-0.59) K/uL Eos # (Auto) (0-0.5) K/uL Baso # (Auto) (0-0.2) K/uL PT (9.0-12.0) Seconds INR (0.9-1.1) APTT (21.0-31.0) Seconds PTT Ratio Sodium 138 (136-145) mmol/L Potassium 4.3 (3.5-5.1) mmol/L Chloride 107 (98-107) mmol/L Carbon Dioxide 24 (21-32) mmol/L Anion Gap 7.0 (3-11) BUN 25 H (7-18) mg/dl Creatinine 1.81 H (0.6-1.2) mg/dl Est Cr Clr Drug Dosing Not Reportable Est GFR ( Amer) 31.8 Est GFR (Non-Af Amer) 27.4 BUN/Creatinine Ratio 13.6 (10-20) Glucose 102 H (70-99) mg/dl Lactate 0.7 (0.4-2.0) mmol/L Calcium 8.8 (8.5-10.1) mg/dl Total Bilirubin 0.4 (0.2-1) mg/dl AST 14 L (15-37) U/L ALT 15 (12-78) U/L Alkaline Phosphatase 114 (45-117) U/L Total Protein 7.5 (6.4-8.2) gm/dl Albumin 3.5 (3.4-5.0) gm/dl Globulin 4.0 (2.5-4.0) gm/dl Albumin/Globulin Ratio 0.9 (0.9-2) Urine Color Urine Appearance (Clear) Urine pH (4.5-7.5) Ur Specific [place] (1.000-1.030) Urine Protein (Negative) Urine Glucose (UA) (Negative) Urine Ketones (Negative) Urine Blood (Negative) Urine Nitrite (Negative) Urine Bilirubin (Negative) Urine Urobilinogen (Negative) Ur Leukocyte Esterase (Negative) Urine WBC (Auto) (0-5) /hpf Urine RBC (Auto) (0-4) /hpf U Hyaline Cast (Auto) (0-5) /lpf U Epithel Cells (Auto) (0-5) /lpf Urine Bacteria (Auto) (Negative) Imaging Data Attestation: I personally reviewed and interpreted this imaging study as follows: My Impression: CHEST X-RAY: The results were interpreted by me. X-ray is rotated. No obvious pulmonary infiltrate or consolidation. ECG Data Attestation: I personally reviewed and interpreted this ECG as follows: Indication: other (dizziness) Rate (beats per minute): 94 Rhythm: normal sinus Findings: no PAC, no PVC, no ST depression, no ST elevation, no acute ischemic change and no ectopy Blood Pressure Blood Pressure Findings: Low blood pressure Blood Pressure Disposition: further management by hospitalist PB Escobar The patient is a 73 year old female who presents to the ED with complaints of an episode of a fall occurring prior to arrival. The patient was somewhat weak and was noted to have a fever. A septic protocol was performed. It seems that the patient may have a urinary tract infection. This would account for her weakness. The patient was hypotensive but is noted to have a history of chronic low blood pressure. During her episodes of hypotension, she continued to mentate normally. I was concerned for the possibility of sepsis because she had fever, leukocytosis, and UTI. The patient was started on broad-spectrum antibiotic coverage. I discussed the case with the [facility] Hospitalist and they will evaluate for further management. Impression & Plan Sepsis, UTI (urinary tract infection), Hypoxia Critical Care Time Critical Care Time: Yes Total Critical Care Time: 60 I have personally spent 60 minutes of critical care time in the direct management of this patient. This includes bedside care, interpretation of diagnostic studies, and testing, discussion with consultants, patient, and family members, and other required patient management activities. This 60 minutes is in excess of all separately billable procedures. Discharge Plan Visit Data *Final* Discharge Date/Time: 10/15/18 04:15 Chief Complaint: Fall ED Provider: Julia Kumar Discharge Problem: Sepsis, UTI (urinary tract infection), Hypoxia Patient Disposition: Admitted As Inpatient Discharge Instructions Interventions: ED Discharge Assessment Last Done: 10/15/18 04:15 Discharge Problem: Sepsis Qualifiers: Sepsis type: sepsis due to unspecified organism Qualified Code(s): A41.9 - Sepsis, unspecified organism UTI (urinary tract infection) Qualifiers: Urinary tract infection type: site unspecified Hematuria presence: with hematuria Qualified Code(s): N39.0 - Urinary tract infection, site not specified The scribe's documentation has been prepared under my direction and personally reviewed by me in its entirety. I confirm that the note above accurately reflects all work, treatment, procedures, and medical decision making performed by me.
[2018-10-16 06:51] LABS: INR 1.2 (0.9-1.1); Prothrombin Time 12.4 Seconds (9.0-12.0)
[2018-10-16 06:58] LABS: BUN Creatinine Ratio 17.4 (10-20); Creatinine Clr Calc Pharmacy 26.3 ml/min; Est GFR (African American) 43.8; Est GFR (Non-African American) 37.8; Magnesium 2.1 mg/dl (1.8-2.4); Potassium 4.1 mmol/L (3.5-5.1)
[2018-10-16] MEDS: ALBUT/IPRATROP 3MG/0.5MG NEB 3 ML VIAL NEB SCH ×4 (07:09→18:59)
[2018-10-16] MEDS: DIVALPROEX DELAY RELEASE 500 MG TAB PO SCH ×2 (09:00→20:57)
[2018-10-16] MEDS: ASPIRIN 81 MG ECTAB PO SCH (09:00)
[2018-10-16] MEDS: BUSPIRONE HCL 7.5 MG TAB PO SCH ×2 (09:00→21:00)
[2018-10-16] MEDS: DOCUSATE SODIUM 100 MG CAP PO SCH ×2 (09:00→20:59)
[2018-10-16] MEDS: OMEPRAZOLE 20 MG CAPCR PO SCH (09:01)
[2018-10-16] MEDS: DOCUSATE SODIUM/SENNA 50/8.6MG TAB PO SCH (09:01)
[2018-10-16] MEDS: PRAMIPEXOLE DIHYDROCHLO 0.25 MG TAB PO SCH ×2 (09:01→20:56)
[2018-10-16] MEDS: BuPROPion SR 150 MG TABCR PO SCH ×2 (09:02→20:58)
[2018-10-16] MEDS: QUETIAPINE FUMARATE 200 MG TAB PO SCH ×2 (09:02→20:58)
[2018-10-16] MEDS: methylPREDNISolone 60 MG in SYRINGE 0 ML IV SCH ×2 (09:02→20:56)
[2018-10-16] MEDS: HEPARIN SOD 5,000 UNIT/0.5 ML VIAL SQ SCH ×2 (09:02→20:58)
[2018-10-16] MEDS: DOXYCYCLINE HYCLATE 100 MG in DEXTROSE 5% 100 ML IV SCH ×2 (09:03→20:56)
--- NOTE | 2018-10-16 09:48 | Hospitalist Progress Note ---
Date of Service October 16, 2018 Assessment & Plan (1) Pneumonia: This patient is a 73-year-old female with a history of moderate to severe dementia, hypothyroidism, orthostasis, CKD stage III, moderate aortic stenosis, depression/anxiety/bipolar disorder, GERD, here with sepsis along with pneu monia, acute hypoxic respiratory failure, and UTI. Considering her low blood pressures, is with severe sepsis, however her lactate is normal on admission. Patient had worsening hypoxia through the day of admission, minimal cough, denies chest pain. Blood pressures remain quite low but are improved from admission systolic blood pressure in the 70s. Her daughter who is a nurse reports that the blood pressure in the 80s systolic is fairly normal for her. An ABG was consistent with hypoxemia and hyperventilation A chest CT was ordered which showed a moderate-sized left lower lobe infiltrate along with some other patchy bilateral infiltrates consistent with pneumonia Her MRSA swab was positive. Lactate remained negative Procalcitonin was mildly elevated at 0.54 and then further increased to 0.77 today With leukocytosis now resolved,Tachycardia resolved, and now afebrile Cortisol random level is normal, however patient has a long history of smoking and may have some component of a COPD exacerbation contributing to her hypoxia Hypoxia is improving today -Continue vancomycin to cover for MRSA as well as doxycycline to cover for atypical organisms in the lungs, and cefepime for gram-negative pneumonia-HCAP -Decrease IV fluids to 75 mL's per hour of normal saline -Continue [id number] duo nebs and IV steroids-taper down over time Continue to follow -Would follow chest imaging to resolution -Follow procalcitonin again in the morning and de-escalate antibiotics when it begins to decrease (2) Sepsis: With fever, tachycardia, leukocytosis, and pneumonia as above Much improved today after IV antibiotics and volume resuscitation Urine output has picked up -Continue Gomez catheter (3) UTI (urinary tract infection): UA abnormal-was initially placed on Cefepime pending culture results. She had also received a dose of Dapto in the ER. Urine culture today is no growth -Continue antibiotics as above for pneumonia only but does not have a urinary tract infection (4) Hypoxia: Acute hypoxic respiratory failure Secondary to pneumonia and likely some component of COPD exacerbation as above -Is being weaned from O2 today and improving, continue supplemental O2 to keep pulse ox greater than 90% -Continue treatment as above in pneumonia section (5) Acute renal failure: Creatinine was increased upon admission to 1.81 and is now improved back to baseline at 1.3 with IV fluids/volume resuscitation and was likely secondary to prerenal state from dehydration and sepsis -Avoid nephrotoxins -Renally dose medications -Continue to follow BMP -Holding home daily Lasix -Renally dose medications -Gomez catheter in place as was oliguric and had urinary incontinence and needed accurate I's and O's (6) GERD (gastroesophageal reflux disease): Continue omeprazole 40 mg daily (7) Hypothyroidism, unspecified: -Continue levothyroxine 150 mcg once daily -No TSH in this lab system -Check TSH (8) Hypotension: Long history of hypotension requiring midodrine. Daughter who is an RN reports baseline blood pressure is usually in the 80s systolic but was lower upon admission Random cortisol level was normal at 16 -Continue midodrine 10 mg p.o. 3 times daily --Giving IV Solu-Medrol for COPD exacerbation but this may also help with blood pressure -Follow blood pressures and remain on telemetry (9) CKD (chronic kidney disease) stage 3, GFR 30-59 ml/min: Renal function back to baseline -Follow renal function as above (10) Bipolar disorder: Continue Depakote, buspirone, bupropion, alprazolam, and Seroquel (11) Restless legs syndrome: Continue Requip (12) DVT prophylaxis: Heparin SQ Disposition-remain on PCU for sepsis and hypotension DNR/DNI as discussed with the patient's daughter who is her healthcare decision- maker. The patient was actually enrolled in hospice fairly recently as an outpatient for her diagnosis of failure to thrive she has lost 30 pounds in the last several months. The daughter does state that she is okay with the patient receiving antibiotics and vasopressors if needed with transfer to the ICU. Subjective Patient reports feeling much better today. Has minimal cough, feels less short of breath. Denies chest pain or abdominal pain. She is making more urine today. Telemetry with sinus rhythm with first-degree AV block, rates in the 60s. I discussed the case with her daughter who is a nurse at the bedside Review of Systems Review of Systems: All systems reviewed & are unremarkable except as noted in HPI & below Physical Exam Constitutional: + thin; no acute distress Eyes: PERRL, conjunctivae normal, anicteric sclerae ENMT: external ear and nose normal, oropharynx normal Neck: trachea midline, no thyromegaly Respiratory: normal respiratory effort (With nasal cannula in place); no labored breathing Auscultation: + diminished lung sounds (at the LLL) and + crackles (in the right middle and lower lung torres); no wheezes Cardiovascular: Rate/Rhythm: regular rate and regular rhythm Heart Sounds: + murmur (3/6 JIMMY at RUSB) Extremities: no edema Gastrointestinal (Abdomen): normal bowel sounds, soft, nontender, no hepatosplenomegaly Musculoskeletal: Extremities: extremities normal to inspection; no cyanosis a nd no clubbing Skin: no rashes, warm and dry Neurologic: moves all extremities and awake; no focal motor deficits Psychiatric: Orientation: alert, oriented to person, oriented to place and cooperative; + not oriented to time Motor Behavior: n tremor Results & Data Vital Signs (Past 12 Hours) Vital Signs Temp Pulse Resp BP Pulse Ox Pulse Ox 10/16/18 08:06 36.7 C 76 18 83/53 L 94 10/16/18 07:09 67 18 96 10/16/18 04:58 99 10/16/18 03:59 36.5 C 76 19 89/51 L 99 10/15/18 23:35 36.6 C 75 17 84/50 L 95 Laboratory Results 10/16/18 10/16/18 10/16/18 Range/Units 05:55 05:55 05:55 WBC (4.8-10.8) K/uL RBC (4.2-5.4) M/uL Hgb (12.0-16.0) g/dL Hct (37-47) % MCV (80-100) fL MCH (25-34) pg MCHC (32-36) g/dL RDW Std Deviation (36.4-46.3) fL RDW Coeff of Jenifer (11.5-14.5) % Plt Count (130-400) K/uL MPV (7.4-10.4) fL Immature Gran % (Auto) % Neut % (Auto) % Lymph % (Auto) % Vilas % (Auto) % Eos % (Auto) % Baso % (Auto) % Immature Gran # (Auto) (0.00-0.02) K/uL Neut # (Auto) (1.4-6.5) K/uL Lymph # (Auto) (1.2-3.4) K/uL Vilas # (Auto) (0.11-0.59) K/uL Eos # (Auto) (0-0.5) K/uL Baso # (Auto) (0-0.2) K/uL PT (9.0-12.0) Seconds INR (0.9-1.1) Sodium 140 (136-145) mmol/L Potassium 4.1 (3.5-5.1) mmol/L Chloride 111 H (98-107) mmol/L Carbon Dioxide 21 (21-32) mmol/L Anion Gap 8.0 (3-11) BUN 24 H (7-18) mg/dl Creatinine 1.39 H (0.6-1.2) mg/dl Est Cr Clr Drug Dosing 26.3 ml/min Est GFR ( Amer) 43.8 Est GFR (Non-Af Amer) 37.8 BUN/Creatinine Ratio 17.4 (10-20) Glucose 139 H (70-99) mg/dl Lactate (0.4-2.0) mmol/L Calcium 9.0 (8.5-10.1) mg/dl Magnesium 2.1 (1.8-2.4) mg/dl Procalcitonin 0.77 H (0-0.5) ng/ml Random Cortisol mcg/dl Random Vancomycin 9.8 mcg/ml 10/16/18 10/16/18 10/15/18 Range/Units 05:55 05:55 15:03 WBC 9.92 (4.8-10.8) K/uL RBC 4.29 (4.2-5.4) M/uL Hgb 12.5 (12.0-16.0) g/dL Hct 38.8 (37-47) % MCV 90.4 (80-100) fL MCH 29.1 (25-34) pg MCHC 32.2 (32-36) g/dL RDW Std Deviation 44.4 (36.4-46.3) fL RDW Coeff of Jenifer 13.5 (11.5-14.5) % Plt Count 185 (130-400) K/uL MPV 11.5 H (7.4-10.4) fL Immature Gran % (Auto) 0.3 % Neut % (Auto) 91.1 % Lymph % (Auto) 5.1 % Vilas % (Auto) 3.4 % Eos % (Auto) 0.0 % Baso % (Auto) 0.1 % Immature Gran # (Auto) 0.03 H (0.00-0.02) K/uL Neut # (Auto) 9.03 H (1.4-6.5) K/uL Lymph # (Auto) 0.51 L (1.2-3.4) K/uL Vilas # (Auto) 0.34 (0.11-0.59) K/uL Eos # (Auto) 0.00 (0-0.5) K/uL Baso # (Auto) 0.01 (0-0.2) K/uL PT 12.4 H (9.0-12.0) Seconds INR 1.2 H (0.9-1.1) Sodium (136-145) mmol/L Potassium (3.5-5.1) mmol/L Chloride (98-107) mmol/L Carbon Dioxide (21-32) mmol/L Anion Gap (3-11) BUN (7-18) mg/dl Creatinine (0.6-1.2) mg/dl Est Cr Clr Drug Dosing ml/min Est GFR ( Amer) Est GFR (Non-Af Amer) BUN/Creatinine Ratio (10-20) Glucose (70-99) mg/dl Lactate (0.4-2.0) mmol/L Calcium (8.5-10.1) mg/dl Magnesium (1.8-2.4) mg/dl Procalcitonin (0-0.5) ng/ml Random Cortisol 16.39 mcg/dl Random Vancomycin mcg/ml 10/15/18 10/15/18 10/15/18 Range/Units 15:03 15:03 15:03 WBC (4.8-10.8) K/uL RBC (4.2-5.4) M/uL Hgb (12.0-16.0) g/dL Hct (37-47) % MCV (80-100) fL MCH (25-34) pg MCHC (32-36) g/dL RDW Std Deviation (36.4-46.3) fL RDW Coeff of Jenifer (11.5-14.5) % Plt Count (130-400) K/uL MPV (7.4-10.4) fL Immature Gran % (Auto) % Neut % (Auto) % Lymph % (Auto) % Vilas % (Auto) % Eos % (Auto) % Baso % (Auto) % Immature Gran # (Auto) (0.00-0.02) K/uL Neut # (Auto) (1.4-6.5) K/uL Lymph # (Auto) (1.2-3.4) K/uL Vilas # (Auto) (0.11-0.59) K/uL Eos # (Auto) (0-0.5) K/uL Baso # (Auto) (0-0.2) K/uL PT (9.0-12.0) Seconds INR (0.9-1.1) Sodium 139 (136-145) mmol/L Potassium 4.0 (3.5-5.1) mmol/L Chloride 111 H (98-107) mmol/L Carbon Dioxide 22 (21-32) mmol/L Anion Gap 6.0 (3-11) BUN 22 H (7-18) mg/dl Creatinine 1.47 H D (0.6-1.2) mg/dl Est Cr Clr Drug Dosing 24.8 ml/min Est GFR ( Amer) 40.9 Est GFR (Non-Af Amer) 35.3 BUN/Creatinine Ratio 14.7 (10-20) Glucose 98 (70-99) mg/dl Lactate 0.8 (0.4-2.0) mmol/L Calcium 7.9 L (8.5-10.1) mg/dl Magnesium (1.8-2.4) mg/dl Procalcitonin 0.54 H (0-0.5) ng/ml Random Cortisol mcg/dl Random Vancomycin mcg/ml 10/15/18 Range/Units 15:03 WBC 12.62 H (4.8-10.8) K/uL RBC 4.07 L (4.2-5.4) M/uL Hgb 11.8 L (12.0-16.0) g/dL Hct 36.6 L (37-47) % MCV 89.9 (80-100) fL MCH 29.0 (25-34) pg MCHC 32.2 (32-36) g/dL RDW Std Deviation 44.4 (36.4-46.3) fL RDW Coeff of Jenifer 13.6 (11.5-14.5) % Plt Count 174 (130-400) K/uL MPV 10.7 H (7.4-10.4) fL Immature Gran % (Auto) 0.2 % Neut % (Auto) 80.2 % Lymph % (Auto) 10.5 % Vilas % (Auto) 8.6 % Eos % (Auto) 0.3 % Baso % (Auto) 0.2 % Immature Gran # (Auto) 0.03 H (0.00-0.02) K/uL Neut # (Auto) 10.12 H (1.4-6.5) K/uL Lymph # (Auto) 1.32 (1.2-3.4) K/uL Vilas # (Auto) 1.09 H (0.11-0.59) K/uL Eos # (Auto) 0.04 (0-0.5) K/uL Baso # (Auto) 0.02 (0-0.2) K/uL PT (9.0-12.0) Seconds INR (0.9-1.1) Sodium (136-145) mmol/L Potassium (3.5-5.1) mmol/L Chloride (98-107) mmol/L Carbon Dioxide (21-32) mmol/L Anion Gap (3-11) BUN (7-18) mg/dl Creatinine (0.6-1.2) mg/dl Est Cr Clr Drug Dosing ml/min Est GFR ( Amer) Est GFR (Non-Af Amer) BUN/Creatinine Ratio (10-20) Glucose (70-99) mg/dl Lactate (0.4-2.0) mmol/L Calcium (8.5-10.1) mg/dl Magnesium (1.8-2.4) mg/dl Procalcitonin (0-0.5) ng/ml Random Cortisol mcg/dl Random Vancomycin mcg/ml PG Care Time/CCT Total # of Minutes Spent Total Time Spent with Patient: Total time spent is greater than 50% in coordination of care (as documented) at patient's floor/unit and/or counseling patient: (1) Sepsis Sepsis type: sepsis due to unspecified organism Qualified Code(s): A41.9 - Sepsis, unspecified organism
[2018-10-16] MEDS: MIDODRINE HCL 10 MG TAB PO SCH ×3 (10:03→20:58)
[2018-10-16] MEDS: VANCOMYCIN HCL 750 MG in SODIUM CHLORIDE 0.9% 250 ML IV SCH ×2 (11:07→21:01)
--- NOTE | 2018-10-16 13:30 | Pharmacy Report ---
Pharmacy Abx Initial Consult - Date of Service October 16, 2018 - Pharmacy Dosing Scope Date of Consult: 10/15/18 Consultation requested by: Dr. Dunne Pharmacy is consulted to initiate Vancomycin IV dosing therapy, order appropriate labs and adjust drug dose/frequency. - Subjective The patient is a 73 year old F admitted on 10/15/18 03:34. - Objective Height: 5 ft Weight: 50.6 kg Vital Signs (Past 12hrs): Vital Signs Temp Pulse Pulse Resp BP Pulse Ox Pulse Ox 10/16/18 12:49 36.6 C 82 17 86/58 L 96 10/16/18 11:18 77 98 10/16/18 10:58 70 10/16/18 10:16 97 10/16/18 08:06 36.7 C 76 18 83/53 L 94 10/16/18 07:09 67 18 96 10/16/18 04:58 99 10/16/18 03:59 36.5 C 76 19 89/51 L 99 Lab Results (24hrs): Laboratory Tests (24 Hours) 10/16/18 10/16/18 10/16/18 05:55 05:55 05:55 WBC Neut # (Auto) Creatinine 1.39 H Est Cr Clr Drug Dosing 26.3 Procalcitonin 0.77 H Random Vancomycin 9.8 10/16/18 10/15/18 10/15/18 05:55 15:03 15:03 WBC 9.92 Neut # (Auto) 9.03 H Creatinine 1.47 H D Est Cr Clr Drug Dosing 24.8 Procalcitonin 0.54 H Random Vancomycin 10/15/18 15:03 WBC 12.62 H Neut # (Auto) 10.12 H Creatinine Est Cr Clr Drug Dosing Procalcitonin Random Vancomycin Micro Results: 10/15/18 01:44 Anaerobic Blood Culture - Final Blood - Risk Factors for Resistance * Resident in a senior care or extended-care facility - Assessment & Plan Assessment 73 year old F presenting to ED from assisted living facility where she was reportedly confused, weak and had a fever. Patient was complaining of dizzy spells and had a fall before arriving to the ED. Daughter states that patient had been complaining of SOB and was started on an inhaler. Nasal swab +MRSA. Blood cultures x2 and urine culture currently show no growth. Patient also receiving Cefepime 1000mg IV q24 and Doxy 100mg IV Q12. Plan Vancomycin for treatment of possible HAP Vancomycin IV * Estimated PK Parameters: Vd 0.7 L/kg, Josep 0.026 hr-1, t1/2 27 hr * Collected a random level this morning (10/16) and level was 9.8 mcg/mL. * t1/2 calculated based on random level is ~8 hours * Loading dose: 1000 mg (20 mg/kg) * Maintenance dose: 750 mg IV (15 mg/kg) every 12 hours * Goal trough level for PNA: 15 to 20 mcg/mL * Trough level ordered for 10/17/18 at 0830 Pharmacy will continue to follow and will adjust dose/frequency as necessary. Thank you.
[2018-10-16] MEDS: CEFEPIME 1,000 MG in SYRINGE 0 ML IV SCH (20:56)
[2018-10-16] MEDS: ALPRAZolam 0.25 MG TABLET PO SCH (20:56)
[2018-10-17] MEDS: SODIUM CHLORIDE 0.9% 1000ML 1,000 ML IV SCH (03:45)
[2018-10-17] MEDS: LEVOTHYROXINE SODIUM 150 MCG TABLET PO SCH (06:05)
[2018-10-17] MEDS: ALBUT/IPRATROP 3MG/0.5MG NEB 3 ML VIAL NEB SCH ×4 (07:17→19:22)
--- NOTE | 2018-10-17 08:03 | Hospitalist Progress Note ---
Date of Service October 17, 2018 Assessment & Plan (1) Pneumonia: This patient is a 73-year-old female with a history of moderate to severe dementia, hypothyroidism, orthostasis, CKD stage III, moderate aortic stenosis, depression/anxiety/bipolar disorder, GERD, here with sepsis along with pneu monia, acute hypoxic respiratory failure, and UTI. Considering her low blood pressures, is with severe sepsis, however her lactate is normal on admission. Patient had worsening hypoxia through the day of admission, minimal cough, denies chest pain. Patient was volume resuscitated which improved her blood pressure however she appears slightly volume overloaded and was diuresed x1 on 10/17 her daughter who is a nurse reports that the blood pressure in the 80s systolic is fairly normal for her. An ABG on admission was consistent with hypoxemia and hyperventilation A chest CT was ordered which showed a moderate-sized left lower lobe infiltrate along with some other patchy bilateral infiltrates consistent with pneumonia Her MRSA swab was positive. Lactate remained negative initial procalcitonin was elevated Cortisol random level is normal Hypoxia is improving remains on vancomycin to cover for MRSA as well as doxycycline to cover for atypical organisms in the lungs, and cefepime for gram-negative pneumonia-HCAP -treat suspected copd with nebs and IV steroids tapering when able (2) Sepsis: With fever, tachycardia, leukocytosis, and pneumonia as above Much improved after IV antibiotics and volume resuscitation (3) UTI (urinary tract infection): UA abnormal-was initially placed on Cefepime pending culture results. She had also received a dose of Dapto in the ER. Urine culture is no growth -Continue antibiotics as above for pneumonia only. Does not have a urinary tract infection (4) Hypoxia: Acute hypoxic respiratory failure Secondary to pneumonia and likely some component of COPD exacerbation as above -Is being weaned from O2 today and improving, continue supplemental O2 to keep pulse ox greater than 90% (5) Acute renal failure: Creatinine was increased upon admission to 1.81 and is now improved back to baseline at 1.3 with IV fluids/volume resuscitation and was likely secondary to prerenal state from dehydration and sepsis, therefore acute kidney injury res olved -Avoid nephrotoxins -Renally dose medications -Holding home daily Lasix (6) GERD (gastroesophageal reflux disease): remains on omeprazole 40 mg daily (7) Hypothyroidism, unspecified: -Continue levothyroxine 150 mcg once daily (8) Hypotension: Long history of hypotension requiring midodrine. Daughter who is an RN reports baseline blood pressure is usually in the 80s systolic but was lower upon admission Random cortisol level was normal at 16 remains on midodrine 10 mg p.o. 3 times daily --Giving IV Solu-Medrol for COPD exacerbation but this may also help with blood pressure (9) CKD (chronic kidney disease) stage 3, GFR 30-59 ml/min: Renal function back to baseline -Follow renal function as above (10) Bipolar disorder: Continue Depakote, buspirone, bupropion, alprazolam, and Seroquel (11) Restless legs syndrome: Continue Requip (12) DVT prophylaxis: Heparin SQ DNR/DNI as discussed with the patient's daughter who is her healthcare decision- maker. The patient was actually enrolled in hospice fairly recently as an outpatient for her diagnosis of failure to thrive she has lost 30 pounds in the last several months. The daughter does state that she is okay with the patient receiving antibiotics and vasopressors if needed with transfer to the ICU. Subjective Patient is pleasantly demented she has no active complaints she is doing oriented x2 he does have slight tachypnea remains on 3 L nasal cannula Review of Systems Review of Systems: ROS: Review of systems may be slightly limited due to patient's dementia she denies any positive complaints upon questioning well nourished well developed. No double vision blurry vision No problems with speech or swallowing No palpitations, chest pain or pressure No Wheezing or breathing issues No abdominal pain nausea vomiting diarrhea changes in appetite or weight No burning urine urine frequency or changes in color No focal joint pain or muscle pain No skin rashes or oral lesions No unusual bruising or bleeding No focused back pain or numbness or loss of strength No changes in memory or confusion Physical Exam Physical Exam: The patient appeared well nourished and normally developed. Vital signs as documented. Head exam is unremarkable. normocephalic, atraumatic Neck is with slight jugular venous distension, thyromegaly, or lymphademopathy Lungs are rales bilaterally from base to apex, no focal loss of the left base as would be suggested by her CT scan Cardiac exam reveals Rhythm is regular. Systolic ejection murmurs heard Abdominal exam reveals normal bowel sounds, no masses, no organomegaly Extremities are mildly edematous and both pedal pulses are present Neurologic exam is A&Ox2, no focal deficits, strength is equal bilateral but weak and bilaterally Psychologically seems neither anxious or depressed Skin is warm Dry Results & Data Vital Signs (Past 12 Hours) Vital Signs Temp Pulse Pulse Resp BP Pulse Ox 10/17/18 07:25 36.8 C 76 17 122/68 99 10/17/18 07:17 75 18 97 10/17/18 04:09 36.5 C 80 18 104/62 94 10/16/18 23:57 36.6 C 87 19 84/53 L 93 PG Care Time/CCT Total # of Minutes Spent Total Time Spent with Patient: Total time spent is greater than 50% in coordination of care (as documented) at patient's floor/unit and/or counseling patient: (1) Sepsis Sepsis type: sepsis due to unspecified organism Qualified Code(s): A41.9 - Sepsis, unspecified organism
[2018-10-17] MEDS: QUETIAPINE FUMARATE 200 MG TAB PO SCH ×2 (08:17→20:59)
[2018-10-17] MEDS: DIVALPROEX DELAY RELEASE 500 MG TAB PO SCH ×2 (08:17→20:58)
[2018-10-17] MEDS: MIDODRINE HCL 10 MG TAB PO SCH ×3 (08:17→21:00)
[2018-10-17] MEDS: DOCUSATE SODIUM 100 MG CAP PO SCH ×2 (08:17→20:58)
[2018-10-17] MEDS: BUSPIRONE HCL 7.5 MG TAB PO SCH ×2 (08:18→20:59)
[2018-10-17] MEDS: methylPREDNISolone 60 MG in SYRINGE 0 ML IV SCH ×2 (08:18→20:59)
[2018-10-17] MEDS: ASPIRIN 81 MG ECTAB PO SCH (08:18)
[2018-10-17] MEDS: BuPROPion SR 150 MG TABCR PO SCH ×2 (08:18→20:57)
[2018-10-17] MEDS: HEPARIN SOD 5,000 UNIT/0.5 ML VIAL SQ SCH ×2 (08:18→20:56)
[2018-10-17] MEDS: DOCUSATE SODIUM/SENNA 50/8.6MG TAB PO SCH (08:19)
[2018-10-17] MEDS: PRAMIPEXOLE DIHYDROCHLO 0.25 MG TAB PO SCH ×2 (08:19→21:00)
[2018-10-17] MEDS: OMEPRAZOLE 20 MG CAPCR PO SCH (08:20)
[2018-10-17] MEDS: DOXYCYCLINE HYCLATE 100 MG in DEXTROSE 5% 100 ML IV SCH ×2 (08:21→20:58)
[2018-10-17] MEDS ORDERED: VANCOMYCIN TROUGH ONE (08:30)
[2018-10-17 08:41] LABS: Basophils # (auto) 0.01 K/uL (0-0.2); Basophils % (auto) 0.1 %; Hematocrit (blood only) 35.9 % (37-47); Hemoglobin 11.6 g/dL (12.0-16.0); Immature Granulocytes # (auto) 0.03 K/uL (0.00-0.02); Immature Granulocytes % (auto) 0.4 %; Lymphocytes # (auto) 0.62 K/uL (1.2-3.4); Lymphocytes % (auto) 7.8 %; Mean Corpuscular Hgb Conc 32.3 g/dL (32-36); Mean Platelet Volume 11.1 fL (7.4-10.4); Monocytes # (auto) 0.51 K/uL (0.11-0.59); Monocytes % (auto) 6.4 %; Neutrophils # (auto) 6.81 K/uL (1.4-6.5); Neutrophils % (auto) 85.3 %; Platelet Count 215 K/uL (130-400); RDW Coefficient of Variation 13.5 % (11.5-14.5); RDW Standard Deviation 44.3 fL (36.4-46.3); Red Blood Count 3.99 M/uL (4.2-5.4); White Blood Count 7.98 K/uL (4.8-10.8)
[2018-10-17 09:11] LABS: BUN Creatinine Ratio 24.3 (10-20); Calcium 9.2 mg/dl (8.5-10.1); Creatinine Clr Calc Pharmacy 25.5 ml/min; Est GFR (African American) 42.3; Est GFR (Non-African American) 36.5; Potassium 4.1 mmol/L (3.5-5.1)
[2018-10-17] MEDS: VANCOMYCIN HCL 750 MG in SODIUM CHLORIDE 0.9% 250 ML IV SCH ×2 (10:29→23:31)
[2018-10-17] MEDS ORDERED: FUROSEMIDE 20 MG in SYRINGE 0 ML IV ONE (12:00)
--- NOTE | 2018-10-17 12:54 | Pharmacy Report ---
Pharmacy Abx Dose Short Note - Date of Service October 17, 2018 - Assessment & Plan Assessment * 73 year old F with severe sepsis (hypotension noted) 2nd PNA * Cultures * MRSA nasal swab positive * 10/15 blood cultures: NGTD x2 * 10/15 urine culture: NGTD * Renal * SCr was elevated on admission, now improved to baseline * eCrCL ~ 26 mL/min * Antibiotics for PNA * Cefepime day 3 (for GNR / HAP coverage) * Doxycycline day 3 (for atypical organism coverage) * Vancomycin day 3 (for MRSA coverage 2nd positive MRSA nasal swab) * Procalcitonin * Was elevated to 0.54 ng/mL on admission and increased to 0.77 ng/mL ~14 hours later - suggestive of sepsis with peak occurring as anticipated (6-24 hours) * Decreased to 0.65 ng/mL today - suggestive that current therapy is likely appropriate, although rate of decrease is slightly less than what would be expected based on procalcitonin t1/2 of ~20-24 hours * Procalcitonin is usually not elevated with atypical organism infection, making atypical PNA less likely Vancomycin * Goal vancomycin trough 15-20 mcg/mL * Trough of 19.9 mcg/mL is therapeutic * Initial aggressive dose of 15 mg/kg IV q12 was selected despite this being significantly more frequent dosing than population PK would suggest. This was an astute and appropriate dosing regimen as evidenced by therapeutic trough this AM. However, this trough was obtained prior to steady state, as evidenced by significant increase in level after only 2 doses of vancomycin. * Will therefore slightly lengthen interval in an attempt to maintain therapeutic vancomycin levels and prevent supratherapeutic levels * Due to severity of illness, will obtain an early repeat level to ensure this dose decrease will not produce a subtherapeutic level. This level too will be prior to steady state Vancomycin plan * Decrease vancomycin to 750 mg IV q16h * Trough 10/18 @ 1530 Recommendations * Continue to monitor procalcitonin daily * Consider discontinuation of doxycycline - atypical infection less likely Pharmacy will continue to follow and will adjust dose/frequency as necessary. Thank you.
[2018-10-17] MEDS: CEFEPIME 1,000 MG in SYRINGE 0 ML IV SCH (20:58)
[2018-10-17] MEDS: ALPRAZolam 0.25 MG TABLET PO SCH (21:03)
[2018-10-18] MEDS: LEVOTHYROXINE SODIUM 150 MCG TABLET PO SCH (06:39)
[2018-10-18] MEDS: ALBUT/IPRATROP 3MG/0.5MG NEB 3 ML VIAL NEB SCH ×3 (06:54→15:05)
[2018-10-18 07:20] LABS: Creatinine Clr Calc Pharmacy 26.5 ml/min; Est GFR (African American) 44.2; Est GFR (Non-African American) 38.1
[2018-10-18] MEDS: methylPREDNISolone 60 MG in SYRINGE 0 ML IV SCH (08:42)
[2018-10-18] MEDS: BuPROPion SR 150 MG TABCR PO SCH (08:42)
[2018-10-18] MEDS: MIDODRINE HCL 10 MG TAB PO SCH ×2 (08:43→15:30)
[2018-10-18] MEDS: DOCUSATE SODIUM 100 MG CAP PO SCH (08:43)
[2018-10-18] MEDS: PRAMIPEXOLE DIHYDROCHLO 0.25 MG TAB PO SCH (08:43)
[2018-10-18] MEDS: QUETIAPINE FUMARATE 200 MG TAB PO SCH (08:43)
[2018-10-18] MEDS: ASPIRIN 81 MG ECTAB PO SCH (08:43)
[2018-10-18] MEDS: DOCUSATE SODIUM/SENNA 50/8.6MG TAB PO SCH (08:43)
[2018-10-18] MEDS: HEPARIN SOD 5,000 UNIT/0.5 ML VIAL SQ SCH (08:43)
[2018-10-18] MEDS: BUSPIRONE HCL 7.5 MG TAB PO SCH (08:43)
[2018-10-18] MEDS: DIVALPROEX DELAY RELEASE 500 MG TAB PO SCH (08:44)
[2018-10-18] MEDS: OMEPRAZOLE 20 MG CAPCR PO SCH (08:44)
[2018-10-18] MEDS: DOXYCYCLINE HYCLATE 100 MG in DEXTROSE 5% 100 ML IV SCH (08:50)
--- NOTE | 2018-10-18 11:26 | Discharge Summary ---
Date of Service October 18, 2018 Admission HPI Per Admitting Provider 73 y/o F hx CKD III, bipolar, hypothyroidism, GERD, moderate , orthostatic hypotension, dementia. The pt presents from her assisted living facility where she was reportedly weak and confused and may have suffered a fall. She is a poor historian and not able to provide additional details preceding transport. On arrival to the ER she was febrile and hypoxic, although she did not complain of SOB. Her daughter states that she has recently complained of dyspnea and was placed on an inhaler. It is suspected that she may have lung disease. Initial labs were notable for mild leukocytosis and a normal lactic. The pt's blood pressure has been low with a systolic pressure in the 80s. However, this may be normal for her per her daughter and she does take midodrine TID. PMH: 1) Hypothyroidism 2) Orthostatic hypotension - requires Midodrine 3) CKD III - baseline creat 1.8 4) Moderate aortic stenosis 5) Depression/anxiety 6) Dementia 7) Lower extremity edema Surgical: 1) BL TKA 2) L femoral fracture Social: Significant smoking history, quit 10 years ago. Does not drink. Resides in assisted living. Family: Noncontributory Principal Diagnosis Severe sepsis LLL pneumonia acute kidney injury resolved, CKD 3 Dementia Discharge Exam The patient appeared well nourished and normally developed. Vital signs as documented. Head exam is unremarkable. normocephalic, atraumatic Neck is without jugular venous distension, thyromegaly, or lymphademopathy Lungs are clear with minor rales at bases Cardiac exam reveals Rhythm is regular. Abdominal exam reveals normal bowel sounds, no masses, no organomegaly Extremities are nonedematous and both pedal pulses are present Neurologic exam is A&Ox2, no focal deficits, strength is equal bilateral Psychologically seems neither anxious or depressed Skin is warm Dry without bruises or lesions Discharge Data Allergies Allergy/AdvReac Type Severity Reaction Status Date / Time pantoprazole Allergy Intermediate RASH Verified 10/15/18 01:58 piperacillin Allergy Intermediate RASH Verified 10/15/18 01:58 tazobactam Allergy Intermediate RASH Verified 10/15/18 01:58 morphine AdvReac Intermediate bp Verified 10/15/18 07:10 plummeted,CONFUSION Ordered Studies 10/15/18 13:20 CT chest wo con Urgent Hospital Course (1) Pneumonia: This patient is a 73-year-old female with a history of moderate to severe dementia, hypothyroidism, orthostasis, CKD stage III, moderate aortic stenosis, depression/anxiety/bipolar disorder, GERD, here with sepsis along with pneumonia, acute hypoxic respiratory failure, and UTI. Considering her low blood pressures, is with severe sepsis, however her lactate is normal on admission. A chest CT was ordered which showed a moderate-sized left lower lobe infiltrate along with some other patchy bilateral infiltrates consistent with pneumonia Her MRSA swab was positive. Lactate remained negative Treated with vancomycin to cover for MRSA as well as doxycycline to cover for atypical organisms in the lungs, and cefepime for gram-negative pneumonia-HCAP. Will transition to po doxycycline to complete 7 day course -treat suspected copd with nebs and IV steroids tapering to po at discharge, pt does require home oxygen and will be ordered for home use (2) Sepsis: With fever, tachycardia, leukocytosis, and pneumonia as above Resolved after IV antibiotics and volume resuscitation (3) UTI (urinary tract infection): UA abnormal-was initially placed on Cefepime pending culture results. She had also received a dose of Dapto in the ER. Urine culture is no growth -Continue antibiotics as above for pneumonia only. Does not have a urinary tract infection (4) Hypoxia: Acute hypoxic respiratory failure Secondary to pneumonia and likely some component of COPD exacerbation as above requires supplemental O2 to keep pulse ox greater than 90% (5) Acute renal failure: Creatinine was increased upon admission to 1.81 and is now improved back to baseline at 1.3 with IV fluids/volume resuscitation and was likely secondary to prerenal state from dehydration and sepsis, therefore acute kidney injury resolved (6) GERD (gastroesophageal reflux disease): remains on acid supression therapy (7) Hypothyroidism, unspecified: -Continue levothyroxine 150 mcg once daily (8) Hypotension: Long history of hypotension requiring midodrine. Daughter who is an RN reports baseline blood pressure is usually in the 80s systolic but was lower upon admission Random cortisol level was normal at 16 remains on midodrine 10 mg p.o. 3 times daily (9) CKD (chronic kidney disease) stage 3, GFR 30-59 ml/min: Renal function back to baseline -Follow renal function as above (10) Bipolar disorder: Continue Depakote, buspirone, bupropion, alprazolam, and Seroquel (11) Restless legs syndrome: Continue Requip (12) DVT prophylaxis: DNR/DNI as discussed with the patient's daughter who is her healthcare decision- maker. The patient was actually enrolled in hospice fairly recently as an outpatient for her diagnosis of failure to thrive she has lost 30 pounds in the last several months. Total Time Total Time Spent Total Time Spent (In Minutes): greater than 30 minutes were required to prepare discharge Discharge Plan Discharge Items Patient Disposition: Personal Custodial Reason For Visit: WEAKNESS, UTI Discharge Diagnosis: pneumonia low oxygen level kidney strain - resolved Discharge Goals: Decrease discomfort and Diagnostic testing Activity: As commented below Activity Comment: pt may do as much as she is comfortable doing Non-emergency contact: Primary Care Provider Call non-emergency contact if: you have any medication questions Follow-up/Referrals: Brian Jennings [Primary Care Provider] - Diet: Regular Addtl Provider Instructions: please complete your antibiotics to treat your pneumonia Please finish a tapering dose of steroids, you may need some help to organize the declining dosing recommended Prescriptions: New doxycycline monohydrate 100 mg capsule 100 mg PO BID 3 Days Qty: 9 RF: 0 prednisone 10 mg tablet 10 mg PO DAILY Qty: 40 RF: 0 Continued alprazolam 0.25 mg Tablet,Disintegrating 0.25 mg PO HS RF: 0 aspirin 81 mg Tablet,Delayed Release (Dr/Ec) 81 mg PO DAILY RF: 0 bupropion HCl 150 mg Tablet Sustained-Release 12 Hr 150 mg PO BID RF: 0 buspirone 15 mg Tablet 15 mg PO BID RF: 0 divalproex 500 mg Tablet,Delayed Release (Dr/Ec) 500 mg PO BID RF: 0 docusate sodium [DOK] 100 mg Capsule 100 mg PO BID RF: 0 furosemide [Lasix] 20 mg Tablet 20 mg PO DAILY RF: 0 levothyroxine 150 mcg Tablet 150 mcg PO DAILY RF: 0 midodrine 10 mg Tablet 10 mg PO TID RF: 0 multivitamin Tablet 1 tab PO DAILY RF: 0 omeprazole 40 mg Capsule,Delayed Release(Dr/Ec) 40 mg PO DAILY RF: 0 potassium chloride 10 mEq Tablet Extended Release 10 meq PO DAILY RF: 0 pramipexole 0.25 mg Tablet 0.25 mg PO BID RF: 0 Probiotic Formula (inulin) 1 billion-250 cell-mg Capsule 1 cap PO DAILY RF: 0 quetiapine 200 mg Tablet 200 mg PO BID RF: 0 sennosides-docusate sodium [Senna-Time S] 8.6-50 mg Tablet 1 tab PO DAILY RF: 0 cholecalciferol (vitamin D3) [Vitamin D3] 2,000 unit Capsule 2,000 unit PO DAILY RF: 0 acetaminophen 650 mg Tablet Extended Release 650 mg PO Q6H PRN (Reason: pain/fever) RF: 0 Albuterol Nebulizer 1 vial inhalation Q6H PRN (Reason: SOB/WHEEZING) RF: 0 tramadol 50 mg Tablet 50 mg PO Q6H PRN (Reason: Pain) RF: 0 ondansetron HCl [Zofran] 4 mg Tablet 4 mg PO Q8H PRN (Reason: NAUSEA/VOMITING) RF: 0 Stand-Alone Forms: [facility] Discharge Orders: Discharge Order (Routine); Ordered 10/18/18 Ordered By: Brian Bermudez Admission Data Admit Date/Time: 10/15/18 03:34 Attending Provider: Brian Bermudez Admit Provider: Glenn Busby Primary Care Provider: Brian Jennings Other Providers: Cecille Dunne Service: Telemetry Other Interventions: Discharge Summary Assessment (RN) Last Done: 10/18/18 15:09 DC Date/Time DO NOT enter until pt leaves facility: 10/18/18 16:49
[2018-10-18] MEDS ORDERED: FUROSEMIDE 20 MG in SYRINGE 0 ML IV ONE (12:00)
[2018-10-18] MEDS ORDERED: VANCOMYCIN TROUGH ONE (15:30)
[2018-10-18] MEDS: VANCOMYCIN HCL 750 MG in SODIUM CHLORIDE 0.9% 250 ML IV SCH (15:30)
== END 2018-10-18 16:49 | disposition home or self-care (01) | DRG 871 ==
LOC: ED 00:52 → 2E 03:34 → SUATTDRO 03:34 → 2E 04:15